=== PATIENT | male | born 1965 | race Caucasian/White ===

== ENCOUNTER 2018-07-14 09:43 | Outpatient (CLI) | payer MEDICAID, SELFPAY ==
[2018-07-14 10:59] LABS: ALT 23 U/L (12-78); AST 14 U/L (15-37); Albumin 4.1 g/dL (3.4-5.0); Alkaline Phosphatase 98 U/L (46-116); Anion Gap 8.1 mmol/L (3-11); BUN 12 mg/dL (7-18); Bilirubin, Total 0.4 mg/dL (0.2-1.0); CO2 29.9 mmol/L (21.0-32.0); CREATININE 0.97 mg/dL (0.70-1.30); Calcium 10.2 mg/dL (8.5-10.1); Chloride 102 mmol/L (98-107); Cholesterol 198 mg/dL (50-200); Glucose 88 mg/dL (70-100); HDL Cholesterol 54 mg/dL (40-60); LDL CHOLESTEROL 119 mg/dL (<100); Potassium 4.2 mmol/L (3.5-5.1); Sodium 140 mmol/L (136-145); TSH 2.05 uIU/mL (0.358-3.74); Total Protein 7.7 g/dL (6.4-8.2); Triglyceride 148 mg/dL (30-150)
[2018-07-14 11:13] LABS: Lithium 1.07 mmol/L (0.60-1.20)
== END 2018-07-14 10:03 ==
PROVIDERS: PCP Nurse Practitioner Family; Visit Provider Psychiatry & Neurology Child & Adolescent Psychiatry
DX: F20.9 Schizophrenia, unspecified (principal); Z51.81 Encounter for therapeutic drug level monitoring; Z79.899 Other long term (current) drug therapy
CPT/HCPCS: 36415; 80053; 80061; 83721; 80178; 84443

== ENCOUNTER 2018-07-23 14:34 | Outpatient (CLI) | payer MEDICAID, SELFPAY ==
[2018-07-23 15:42] LABS: Calcium 9.9 mg/dL (8.5-10.1)
[2018-07-23 15:43] LABS: Albumin 4.1 g/dL (3.4-5.0)
== END 2018-07-23 14:54 ==
PROVIDERS: PCP Nurse Practitioner Family; Visit Provider Nurse Practitioner Family
DX: E78.5 Hyperlipidemia, unspecified (principal); E83.52 Hypercalcemia
CPT/HCPCS: 36415; 82040; 82310

== ENCOUNTER 2019-02-11 02:14 | Outpatient (CLI) | payer MEDICAID, SELFPAY ==
[2019-02-11 11:36] LABS: Vitamin B12 408 pg/mL (193-986)
[2019-02-12 06:55] LABS: Vitamin D 25 Total 27.3 ng/ml (30-100)
== END 2019-02-11 02:34 ==
PROVIDERS: PCP Nurse Practitioner Family; Visit Provider Internal Medicine Sleep Medicine
DX: E55.9 Vitamin D deficiency, unspecified (principal); R53.83 Other fatigue
CPT/HCPCS: 36415; 82306; 82607

== ENCOUNTER 2020-01-05 03:47 | Outpatient (CLI) | payer MEDICAID, SELFPAY ==
--- NOTE | 2020-01-05 10:45 | RT.EKG_ITS ---
APPROVED REPORT Exam: Resting ECG Patient Location: O HR:69 bpm ECG Measurements Heart Rate 69 AXIS ME 172 P 56 QRSd 90 QRS 79 QT 378 T 73 QTc 404 Conclusion Sinus rhythm...normal P axis, V-rate 60- 99 ST elev, probable normal early repol pattern...ST elevation, age<55
== END 2020-01-05 04:07 ==
PROVIDERS: PCP Nurse Practitioner Family; Visit Provider Family Medicine
DX: F20.9 Schizophrenia, unspecified (principal); Z79.899 Other long term (current) drug therapy; R94.31 Abnormal electrocardiogram [ECG] [EKG]
CPT/HCPCS: 93005; 93010

== ENCOUNTER 2020-01-27 03:59 | Outpatient (CLI) | payer MEDICAID, SELFPAY ==
[2020-01-27 08:23] LABS: Abs Immature Grans 0.02 10^3/uL (0.0-0.06); Absolute Basophil Count 0.04 10^3/uL (0.0-0.2); Absolute Eosinophil Count 0.09 10^3/uL (0.0-0.7); Absolute Lymphocyte Count 1.83 10^3/uL (1.2-3.4); Absolute Monocyte Count 0.45 10^3/uL (0.1-0.8); Absolute Neutrophil Count 3.35 10^3/uL (1.2-6.7); Basophils % 0.7; Eosinophils % 1.6; HCT 40.5 % (40.0-50.0); HGB 13.3 g/dL (13.5-17.5); Immature Grans % 0.3; Lymphocytes % 31.7; MCH 29.9 pg (27.0-33.0); MCHC 32.8 % (32.0-36.0); MPV 9.1 fL (8.0-11.0); Monocytes % 7.8; Neutrophils % 57.9; Nucleated RBC 0 %; Platelet Count 310 10^3/uL (130-400); RBC 4.45 10^6/uL (4.36-5.78); RDW 12.7 % (11.8-14.1); WBC 5.78 10^3/uL (4.4-10.8)
[2020-01-27 08:39] LABS: Hemoglobin A1C 5.7 % (<5.7)
[2020-01-27 09:14] LABS: Lithium 0.71 mmol/L (0.60-1.20)
[2020-01-27 09:28] LABS: ALT 23 U/L (16-63); AST 13 U/L (15-37); Albumin 4.2 g/dL (3.4-5.0); Alkaline Phosphatase 98 U/L (46-116); Anion Gap 5.2 mmol/L (3-11); BUN 18 mg/dL (7-18); CO2 29.8 mmol/L (21.0-32.0); CREATININE 0.84 mg/dL (0.70-1.30); Calcium 9.9 mg/dL (8.5-10.1); Calculated LDL 114 mg/dL (<100); Chloride 105 mmol/L (98-107); Cholesterol 191 mg/dL (<200); Glucose 100 mg/dL (74-106); HDL Cholesterol 58 mg/dL (40-60); Potassium 4.4 mmol/L (3.5-5.1); Sodium 140 mmol/L (136-145); TSH (W/Ref FT4) 0.77 uIU/mL (0.36-3.74); Total Protein 7.3 g/dL (6.4-8.2); Triglyceride 95 mg/dL (<150)
[2020-01-27 09:43] LABS: Bilirubin, Total 0.3 mg/dL (0.2-1.0)
[2020-01-28 09:52] LABS: Hepatitis C Ab w Rflx HCV PCR Negative (Negative)
== END 2020-01-27 04:19 ==
PROVIDERS: PCP Nurse Practitioner Family; Visit Provider Nurse Practitioner Family
DX: E03.9 Hypothyroidism, unspecified (principal); R73.01 Impaired fasting glucose; E78.5 Hyperlipidemia, unspecified; Z11.59 Encounter for screening for other viral diseases; Z51.81 Encounter for therapeutic drug level monitoring
CPT/HCPCS: 36415; 80053; 80061; 86803; 80178; 83036; 84443; 85025

== ENCOUNTER 2020-03-18 06:10 | Day surgery (SDC) | payer MEDICAID, SELFPAY ==
[2020-03-18 06:34] VITALS: BP 131/86; PULSE 77; RESP 16; TEMP 36.6; O2SAT 98
[2020-03-18] MEDS: Lactated Ringers 1,000 ML 80 ML IV (06:53)
--- NOTE | 2020-03-18 08:11 | W.PM.DSUDISC ---
Discharge Plan Disposition Patient Disposition: HOME Condition: Stable Discharge Details Reason For Visit: colon scope Attending Provider: Minerva Nichole Primary Care Provider: Sue Fischer Home Meds and New Rx's Prescriptions: No Action omega 6-pkq-rtv-fish oil [Fish Oil] 1,000 mg (120 mg-180 mg) capsule PO TID RF: 0 magnesium oxide 500 mg capsule 500 mg PO DAILY RF: 0 zinc 15 mg tablet 15 mg PO DAILY RF: 0 ammonium lactate [AmLactin] 3 GM lotion 3 gm Topical BID RF: 0 ibuprofen 200 MG capsule 200 mg PO Q6H PRN RF: 0 tiagabine [Gabitril] 4 MG tablet 1 tab PO BID RF: 0 multivitamin with minerals [Multiple Vitamin-Minerals] 1 EACH tablet 1 ea PO DAILY Qty: 90 RF: 3 (DME) Space Chamber Plus 1 EACH spacer 1 ea Miscellaneous PRN Qty: 1 RF: 0 lorazepam 1 MG tablet 1 mg PO HS RF: 0 melatonin 5 mg tablet 15 mg PO HS PRNRF: 0 levothyroxine 75 mcg tablet 75 mcg PO QAM Qty: 90 RF: 3 magnesium gluconate 27 mg magnesium (500 mg) tablet 27 mg PO HS RF: 0 cholecalciferol (vitamin D3) 2,000 unit capsule 2,000 unit PO DAILY RF: 0 vitamin B complex Capsule 1 cap PO DAILY RF: 0 omeprazole 20 mg capsule,delayed release(DR/EC) 20 mg PO QAM Qty: 90 RF: 3 psyllium husk [Metamucil] 0.52 gram capsule 0.52 gm PO BID Qty: 180 RF: 3 magnesium 250 mg tablet 250 mg PO TID PRNRF: 0 albuterol sulfate [ProAir HFA] 90 mcg/actuation HFA aerosol inhaler 1 - 2 puff Inhalation Q4-6H PRN Qty: 1 RF: 3 Advair HFA 115-21 mcg/actuation HFA aerosol inhaler 2 puff Inhalation BID Qty: 3 RF: 3 5-HTP 100 mg capsule 100 mg PO QAM RF: 0 quetiapine [Seroquel] 400 mg tablet See Rx Instructions PO DAILY RF: 0 lithium carbonate 300 mg tablet See Rx Instructions PO TID RF: 0 loxapine succinate 50 mg capsule 50 mg PO as directed RF: 0 sodium fluoride-pot nitrate [Prevident 5000 Enamel Protect] 1.1-5 % paste See Rx Instructions Dental BID RF: 0 ketoconazole 2 % shampoo 1 applic Topical .1-2 times weekly Qty: 360 RF: 3 docusate sodium [Colace] 100 mg capsule 300 mg PO DAILY Qty: 270 RF: 3 tiagabine 4 MG tablet 2 tab PO HS RF: 0 Discharge Instructions Additional Instructions: Findings:incomplete/ poor prep Follow up:pt does not require further screenings Please call if you develop: fevers >101.5 Nausea or Vomiting Abdominal pain that is not transient DAY SURGERY UNIT POST COLONOSCOPY INSTRUCTIONS 1. Because there will be medication in your system for the next 24 hours, you may feel a little sleepy. Your coordination will be affected. Therefore: a. Do not drive or operate dangerous equipment for 24 hours. b. Do not drink alcohol beverages for 24 hours (not even beer). c. Plan to go home and rest for the day. 2. Generally there are no restrictions on your activity after a day or so has gone by, but you may feel a bit fatigued for a few days. 3 After you arrive home you may have a light meal and return to a normal diet as you can tolerate it without feeling sick to your stomach. 4. After surgery, you may feel pain or discomfort. This should be only transient, but if it persists please contact your doctor. 5. If there are any questions regarding the findings of your procedure, please feel free to contact your doctor. 6. If you are unable to contact your doctor with a problem, contact the hospital at [phone]. 7. Continue all your regular medications unless directed otherwise. I understand the above instructions and have no questions. Signature of Patient or Responsible Adult Escort Date/Time Name of Responsible Adult Escort Signature of Nurse Date/Time Activity:: No lifting over 20 pounds or strenuous activity x24 hours Diet:: Small light meals x20 this is Discharge Orders Discharge Orders: Discharge Order (Routine); Ordered 03/18/20 Ordered By: Minerva Nichole
--- NOTE | 2020-03-18 08:12 | W.COLOREPORT ---
Date of service: 03/18/20 Time of Service: 08:12 Colonoscopy Report Date of procedure: 03/18/20 Pre-op diagnosis general: screening Post-op diagnosis procedure note: same Surgeon: Minerva Nichole Anesthesia proc note operative: GETA Estimated blood loss (mL): 0 Pathology: none sent Complications: None Disposition: same day Prep: Miralax Retraction Time: N/A Procedure Description: After informed consent was obtained the patient was taken to the procedure room and placed in a left decubitous position. Monitors were applied and a time out was done. The patients name, date of , procedure, allergies to medications and metal in their body was reviewed. The patient was then sedated. Once sedated and comfortable a rectal exam was done. External exam was normal. Internal exam revealed a normal sphincter tone and no palpable masses. Pt colon was full of formed and liquid stool; the scope kept clogging. I was able to work up to the hepatic flexure. The mucosa I was able to visualize was normal. However, b/c of the incomplete prep- a small mass wound not have been seen. The scope was removed and the patient was woken up and taken back to Same day surgery in stable condition. The patient tolerated the procedure well and there were no immediate complications. Follow up: The patient cannot complete/ follow a prep. He is not a candidate for a colonoscopy.
[2020-03-18 08:54] VITALS: BP 146/92; PULSE 67; RESP 16; TEMP 36.5; O2SAT 100
[2020-03-18] MEDS: Metoclopramide 10 MG/2 ML VIAL 5 MG IVP (09:12)
== END 2020-03-18 09:58 | disposition home or self-care (01) ==
PROVIDERS: PCP Nurse Practitioner Family; Visit Provider Surgery
PROC: 0DJD8ZZ Inspection of Lower Intestinal Tract, Via Natural or Artificial Opening Endoscopic (ICD-10-PCS; CPT 45378; principal; 2020-03-18 07:30)
DX: Z12.11 Encounter for screening for malignant neoplasm of colon (principal); Z53.09 Procedure and treatment not carried out because of other contraindication
CPT/HCPCS: 45378; J2001; J2765

== ENCOUNTER 2020-09-22 01:20 | Outpatient (CLI) | payer MEDICAID, SELFPAY ==
--- NOTE | 2020-09-22 07:42 | DI.RAD_ITS ---
Exam(s) XR CHEST 2V PA LATERAL EXAM: XR CHEST 2V PA LATERAL CLINICAL HISTORY: unintentional wt loss ?mass,R63.4. TECHNIQUE: 2D digital imaging was performed. COMPARISON: Prior chest x-ray April 2015 FINDINGS: Heart size is normal. The mediastinum is not widened. Right lung is clear. Mild increased markings in the left lung base noted on the frontal view. This was an area of larger infiltrate in the left lung base in 2015 which is no longer present. There are no pleural effusions. No pneumothorax. IMPRESSION: Small 7 millimeter density seen in the left lung base either left lower lobe or lingular segment of t he left lung. This is only seen on the frontal view. Possibly scarring related to prior larger infi ltrate in this region which was present in 2015.Nevertheless, this requires follow-up to ensure stabi lity. DATA REPOSITORY: RADIATION DOSE DELIVERED:
[2020-09-22] MEDS: Omnipaque 350 MG/ML 50 ML BTL IJ (08:11)
[2020-09-22] MEDS: Breeza Beverage 473 ML BTL PO ×2 (08:12→08:13)
[2020-09-22 08:16] LABS: Abs Immature Grans 0.02 10^3/uL (0.0-0.06); Absolute Basophil Count 0.02 10^3/uL (0.0-0.2); Absolute Eosinophil Count 0.06 10^3/uL (0.0-0.7); Absolute Lymphocyte Count 1.42 10^3/uL (1.2-3.4); Absolute Monocyte Count 0.64 10^3/uL (0.1-0.8); Absolute Neutrophil Count 4.99 10^3/uL (1.2-6.7); Basophils % 0.3; ESR 20 mm//hr (0-20); Eosinophils % 0.8; HCT 38.3 % (40.0-50.0); HGB 12.6 g/dL (13.5-17.5); Immature Grans % 0.3; Lymphocytes % 19.9; MCH 29.9 pg (27.0-33.0); MCHC 32.9 % (32.0-36.0); MPV 8.9 fL (8.0-11.0); Neutrophils % 69.7; Nucleated RBC 0 %; Platelet Count 336 10^3/uL (130-400); RBC 4.21 10^6/uL (4.36-5.78); RDW 12.8 % (11.8-14.1); RDW-SD 42.2 fL; WBC 7.15 10^3/uL (4.4-10.8)
[2020-09-22 08:38] LABS: ALT 29 U/L (16-63); AST 17 U/L (15-37); Albumin 3.6 g/dL (3.4-5.0); Alkaline Phosphatase 90 U/L (46-116); Anion Gap 6.1 mmol/L (3-11); BUN 19 mg/dL (7-18); Bilirubin, Total 0.2 mg/dL (0.2-1.0); C-Reactive Protein 0.11 mg/dL (0.0-0.3); CO2 27.9 mmol/L (21.0-32.0); CREATININE 0.9 mg/dL (0.70-1.30); Calcium 9.7 mg/dL (8.5-10.1); Chloride 105 mmol/L (98-107); Glucose 91 mg/dL (74-106); Potassium 4.3 mmol/L (3.5-5.1); Sodium 139 mmol/L (136-145); TSH (W/Ref FT4) 1.68 uIU/mL (0.36-3.74); Total Protein 7.4 g/dL (6.4-8.2)
[2020-09-22] MEDS: Normal Saline - Diluent 50 ML VIAL IV (09:17)
[2020-09-22] MEDS: Omnipaque 350 MG/ML 100 ML BTL IJ (09:18)
--- NOTE | 2020-09-22 09:21 | DI.CT_ITS ---
Exam(s) CT ABDOMEN PELVIS W EXAM: CT ABDOMEN PELVIS W CLINICAL HISTORY: UNINTENTIONAL WT LOSS, ABD MASS,R63.4,R19.00. TECHNIQUE: Imaging Protocol: Axial computed tomography images with coronal and sagittal reformatted images were created and reviewed CONTRAST MATERIAL: Intravenous: Omnipaque 100cc Oral: Yes. COMPARISON: Chest x-ray earlier today was reviewed. Also chest x-ray April 2015 FINDINGS: VISUALIZED LUNG BASES: No nodules nor pleural effusions evident. ABDOMEN: There is no ascites. LIVER: There are no focal hepatic lesions evident . GALLBLADDER/BILIARY: No obvious gallbladder pathology. CBD is not dilated. PANCREAS: No evidence of pancreatic mass nor dilatation of the pancreatic duct. SPLEEN: Spleen is not enlarged. No obvious intrasplenic lesions. Splenic and portal veins are paten t. ADRENALS: There are no significant adrenal masses. KIDNEYS:Small 1 cm cyst in the left kidney noted. No solid renal masses. No calculi nor hydronephro sis.. ABDOMINAL AORTA: Abdominal aorta is not enlarged. LYMPH NODES:There is no retroperitineal nor paraaortic adenopathy. ABDOMINAL WALL: No evidence of significant anterior abdominal wall hernia. GI: There is no evidence of bowel obstruction, free air, nor abscess. PELVIS: GI: No evidence of appendicitis.No evidence of sigmoid diverticulitis. LYMPH NODES: There is no intrapelvic nor inguinal adenopathy. REPRODUCTIVE: Prostate gland is not enlarged. URINARY BLADDER: The urinary bladder is grossly distended and extends out of the pelvis into the mid- upper abdomen. Exhibits a cephalocaudal measurement of 18 cm. AP measurement 5 cm. Distended bladd er with is 16 cm. There is no obvious mass in the urinary bladder. No intraluminal calculi evident. OSSEOUS: Benign-appearing subarticular cysts are noted in the anterior aspect of the right femoral he ad-right hip. No other significant focal osseous lesions. Degenerative disc disease in lower lumbar spine and degenerative facet arthropathy. IMPRESSION: 1. Main finding here is a gross distention of the urinary bladder with measurements as above. The la rgely distended urinary bladder extends upwards into the mid upper abdomen from the pelvis. Prostate gland does not appear grossly enlarged. There are no calculi nor obvious masses in the urinary blad lj. No perivesicular extravasation seen. 2. There is no hydronephrosis nor hydroureter. RADIATION DOSE DELIVERED: 912.34mGy.cm Total DLP DATA REPOSITORY: All CT scans at this facility are submitted to the National Radiology Data Registry (NRDR) Dose Index Registry (DIR) with the [employer] (ACR). RADIATION OPTIMIZATION: All CT scans at this facility use at least one of these dose optimization te chniques: automated exposure control; mA and/or kV adjustment per patient size (includes targeted exa ms where dose is matched to clinical indication); or iterative reconstruction.
[2020-09-22 16:54] LABS: PSA, Screening 1.6 ng/mL (0.0-3.5)
[2020-09-23 10:10] LABS: Hepatitis C Ab w Rflx HCV PCR Negative (Negative)
[2020-09-23 11:30] LABS: HIV-1/2 Ag & Ab Screen Negative (Negative)
== END 2020-09-22 01:40 ==
PROVIDERS: PCP Nurse Practitioner Family; Visit Provider Nurse Practitioner Family
DX: R63.4 Abnormal weight loss (principal); R19.09 Other intra-abdominal and pelvic swelling, mass and lump; N32.89 Other specified disorders of bladder; N28.1 Cyst of kidney, acquired; J98.4 Other disorders of lung; E03.9 Hypothyroidism, unspecified; Z11.59 Encounter for screening for other viral diseases; Z11.4 Encounter for screening for human immunodeficiency virus [HIV]; Z12.5 Encounter for screening for malignant neoplasm of prostate
CPT/HCPCS: 80053; 84153; 85652; 86803; 87389; 71046; 74177; 84443; 85025; 86140; J3490; Q9967

== ENCOUNTER 2020-11-02 06:59 | Day surgery (SDC) | payer MEDICAID, SELFPAY ==
--- NOTE | 2020-11-02 06:26 | W.PREOPHP ---
Date of service: 11/02/20 Time of Service: 08:26 Assessment and Plan Assessment and plan (1) Weight loss, unintentional: Status: Acute Assessment and plan: Mr. Valencia is a 55-year-old gentleman with a past medical history significant for intellectual disability, bipolar disc disorder, schizophrenia and obstructive sleep apnea who has been losing weight over the last 6 months. It does look like his weight has stabilized over the last month or so. He is here with his caregiver. He does not complain of any abdominal pain. The patient tells me that he goes to the bathroom every day, but his caregiver is not sure that is really true. Due to his antipsychotic medications he does have quite a bit of constipation which is most likely due to decreased motility. He does take MiraLAX and Colace on a daily basis. He did have a colonoscopy in March of last year but unfortunately his prep was not adequate. There were no big masses or obstructions noted at that time. Due to his continued weight loss his primary care physician wanted him to have another try at a colonoscopy. I discussed with his caregiver doing a 2-day prep. We will have him on clear liquids for 2 days. We will give him a bottle of mag citrate 2 days prior to the procedure and then try GoLYTELY the day before the procedure. She will also make sure that he is on a soft diet 4 days prior to the procedure to try to get him cleaned out. Because he will be on clear liquids for 2 days in a row I will asked that he be the first case of the day. Mr. Valencia is vaccinated. We do not have the his card but his caregiver will fax that to us today. As he is vaccinated he does not need to have the Covid test. Risks, benefits and complications have been reviewed. Complications include but are not limited to bleeding, pain, perforation, missed small lesion/polyp, sore throat, aspiration and adverse reaction to the medications. Questions were entertained and answered to their satisfaction and they wished to proceed. No guarantees were given or implied. Proceed with colonoscopy under sedation. History of Present Illness Narrative: Mr. Valencia is here today with his caregiver to discuss a repeat Colonoscopy. A colonoscopy was attempted last year in March by Dr. Nichole but he still had a lot of formed and liquid stool throughout. No large masses were noted at that time. Wayne has been loosing weight as well. It does seem like over the last few weeks his weight has stabilized and gone up slightly. Wayne tells me that he is having large BM's every day but his Caregiver is not too sure that that is true. Unfortunately due to his Psychiatric diagnoses he is on a lot of antipsycotics whcih due cause constipation by afecting motility. He is not at this time taking any laxatives just stools softeners which is great. I discussed the prep with his Caregiver. He did Miralax last time and was on Clear liquids for 2 days. We will try Clear liquids for 2 days. Mag Citrate 2 days before the procedure and then Golytly. there have been no changes in his health since he was last seen Per caregiver the prep seemed to go well. Review of Systems Cardiovascular Cardiovascular: Denies chest pain, Denies chest pain at rest, Denies irregular heart rhythm, Denies dyspnea and Denies dyspnea on exertion Respiratory Respiratory: Denies cough, Denies dyspnea and Denies dyspnea on exertion Gastrointestinal Gastrointestinal: Reports as per [facility] Genitourinary Genitourinary: Denies dysuria, Denies urinary incontinence and Denies urinary urgency Endocrine Endocrine: Reports system reviewed and no additional complaints, except as documented Hematologic/Lymphatic Hematologic/Lymphatic: Denies easy bruising and Denies lymphadenopathy [facility] Medical History Anemia Bipolar disorder [facility] Psychiatry Bronchospasm (12/29/15) Pt unable to complete PFTs due to mental status, unclear ?asthma vs. COPD? Constipation Disorder of bursae and tendons in shoulder region Hyperlipidemia (06/20/15) 01/2020 labs: 10-year ASCVD risk = 3.6% --> no statin indicated at this time Hypothyroidism Intellectual disability Also has legal guardian (see Guardianship on Problem List) Schizophrenia [facility] Psychiatry Seborrheic dermatitis of scalp (10/17/17) Severe obstructive sleep apnea (05/29/17) sleep study Dr. Kelley, Mask, Bipap 08/2020 Sleep-Rocky Kelley MD Surgical History Colonoscopy - IV Sedation (03/13/10) Family History Mother No problems noted. Father Alcohol abuse Arthritis Other Cancer of lung Social History Smoking/Tobacco Use Status: Former Tobacco Use Quit Date: 05/13/94 Smoking risk assessment performed?: Yes Alcohol Intake: never Drug use: Never Substance use type: does not use Adopted: No Caregiver/Support person: Yes (Human Services) Foster care: No Household members: other Details: Lives in [facility] long term Housing: assisted living facility Communication Needs: None Education Level: high school Do you need help understanding health information?: Rarely current occupation: Disabled Pets and animals: No Sexually active: No Current gender identity: male What is your relationship status?: never How often do you talk on the phone with friends or family?: never How often do you get together with friends or relatives?: decline to answer How often do you attend methodist or sikh services?: decline to answer Do you belong to any clubs or organized social groups?: no Panel score (0-1 are the most socially isolated patients): 0 What type of physical activity do you participate in: none Duration: < 15 minutes/day Frequency: 1-2 times per week Special hilda needs: No Seatbelt use: always Helmet use: Yes Drive intox or ride w/intox commercial driver's license driver: No Additional Social history: Unable to [facility] Med[facility] Allergies and Home Medications Allergies Allergy/AdvReac Type Severity Reaction Status Date / Time acetaminophen [From Tylenol] Allergy Unknown unknown Verified 11/02/20 07:30 chlorpromazine HCl Allergy Unknown unknown Verified 11/02/20 07:30 [From Thorazine] clozapine [From Clozaril] Allergy Unknown unknown Verified 11/02/20 07:30 haloperidol [From Haldol] Allergy Unknown unknown Verified 11/02/20 07:30 haloperidol lactate Allergy Unknown unknown Verified 11/02/20 07:30 [From Haldol] risperidone [From Risperdal] Allergy Unknown unknown Verified 11/02/20 07:30 Home Medications Medication Instructions Recorded Confirmed Type ammonium lactate [Amlactin] 3 gm TOPICAL BID script 06/06/15 11/02/20 History ibuprofen 200 mg PO Q6H PRN tab-cap 06/06/15 11/02/20 History multivitamin with minerals 1 ea PO DAILY #90 06/06/15 11/02/20 History [Multiple Vitamin] tiagabine [Gabitril] 1 tab PO BID 06/06/15 11/02/20 History inhalational spacing device [Space #1 12/14/15 10/31/20 History Chamber Plus] tiagabine 2 tab PO HS 01/31/16 11/02/20 History lorazepam 1 mg PO HS tab 04/24/16 11/02/20 History magnesium oxide 500 mg capsule 500 mg PO DAILY cap 05/02/18 11/02/20 History omega 3-xng-bfr-fish oil 1,000 mg 1 cap PO TID cap 05/02/18 11/02/20 History (120 mg-180 mg) capsule zinc 15 mg tablet 15 mg PO DAILY 05/02/18 11/02/20 History melatonin 5 mg tablet 15 mg PO HS PRN tab 05/19/18 11/02/20 History cholecalciferol (vitamin D3) 50 2,000 unit PO DAILY 03/09/19 11/02/20 History mcg (2,000 unit) capsule magnesium gluconate 27 mg 27 mg PO HS tab 03/09/19 10/31/20 History magnesium (500 mg) tablet vitamin B complex 1 cap PO DAILY 03/09/19 11/02/20 History magnesium 250 mg tablet 250 mg PO TID PRN tab 11/03/19 11/02/20 History albuterol sulfate 90 mcg/actuation 1 - 2 puff INHALATION Q4-6H PRN #1 11/25/19 10/31/20 Rx aerosol inhaler inhaler fluticasone propionate 115 2 puff INHALATION BID #3 inhaler 12/24/19 11/02/20 Rx mcg-salmeterol 21 mcg/actuation HFA inhaler 5-hydroxytryptophan (5-HTP) 100 mg 100 mg PO QAM cap 01/01/20 11/02/20 History capsule lithium carbonate 300 mg tablet See Rx Instructions PO TID tab-cap 01/01/20 11/02/20 History loxapine succinate 50 mg capsule 50 mg PO as directed cap 01/01/20 11/02/20 History quetiapine 400 mg tablet See Rx Instructions PO DAILY 01/01/20 11/02/20 History tab-cap sodium fluoride 1.1 %-potassium See Rx Instructions DENTAL BID ml 01/01/20 11/02/20 History nitrate 5 % dental paste ketoconazole 2 % shampoo 1 applic TOPICAL .1-2 times weekly 01/22/20 11/02/20 Rx #360 ml docusate sodium 100 mg capsule 300 mg PO DAILY #270 tab-cap 03/02/20 11/02/20 Rx levothyroxine 75 mcg tablet 75 mcg PO QAM #90 tab-cap 04/04/20 11/02/20 Rx omeprazole 20 mg capsule,delayed 20 mg PO QAM #90 tab-cap 04/20/20 11/02/20 Rx release polyethylene glycol 3350 17 17 g PO DAILY PRN #850 g 07/04/20 11/02/20 Rx gram/dose oral powder psyllium husk 0.52 gram capsule 0.52 g PO BID #180 tab-cap 09/12/20 11/02/20 Rx bisacodyl 5 mg tablet,delayed 5 mg PO ONCE #4 tab 09/30/20 11/02/20 Rx release magnesium citrate 300 ml PO ONCE #296 ml 09/30/20 10/31/20 Rx peg 3350-electrolytes 227.1 240 ml PO Q10M #1 ea 09/30/20 11/02/20 Rx gram-21.5 gram-6.36gram oral powder packet Exam Const General: healthy appearing and comfortable Resp Effort & Inspection: normal respiratory effort Auscultation: clear to auscultation bilaterally Cardio Rate: regular rate Rhythm: regular rhythm Heart Sounds: no click, no gallops and no murmurs
--- NOTE | 2020-11-02 06:27 | W.COLOREPORT ---
Date of service: 11/02/20 Time of Service: 08:52 Colonoscopy Report Date of procedure: 11/02/20 Pre-op diagnosis general: Unintentional weight loss Post-op diagnosis procedure note: same Procedure: Incomplete Colonoscopy Surgeon: Natalia Rodriguez Anesthesia Type: General:No Airway (ASA 2/Katheryn Plummer, ISMA) Estimated blood loss (mL): 0 Pathology: none sent Complications: None Disposition: same day Indications: Mr. Valencia is a 55-year-old gentleman with a past medical history significant for intellectual disability, bipolar disc disorder, schizophrenia and obstructive sleep apnea who has been losing weight over the last 6 months. It does look like his weight has stabilized over the last month or so. He is here with his caregiver. He does not complain of any abdominal pain. The patient tells me that he goes to the bathroom every day, but his caregiver is not sure that is really true. Due to his antipsychotic medications he does have quite a bit of constipation which is most likely due to decreased motility. He does take MiraLAX and Colace on a daily basis. He did have a colonoscopy in March of last year but unfortunately his prep was not adequate. There were no big masses or obstructions noted at that time. Due to his continued weight loss his primary care physician wanted him to have another try at a colonoscopy. I discussed with his caregiver doing a 2-day prep. We will have him on clear liquids for 2 days. We will give him a bottle of mag citrate 2 days prior to the procedure and then try GoLYTELY the day before the procedure. She will also make sure that he is on a soft diet 4 days prior to the procedure to try to get him cleaned out. Because he will be on clear liquids for 2 days in a row I will asked that he be the first case of the day. Mr. Valencia is vaccinated. We do not have the his card but his caregiver will fax that to us today. As he is vaccinated he does not need to have the Covid test. Risks, benefits and complications have been reviewed. Complications include but are not limited to bleeding, pain, perforation, missed small lesion/polyp, sore throat, aspiration and adverse reaction to the medications. Questions were entertained and answered to their satisfaction and they wished to proceed. No guarantees were given or implied. Proceed with colonoscopy under sedation. Prep: Miralax/Dulcolax Findings: Liquid stool throughout the colon. No large masses noted up to the Hepatic flexure Procedure Description: After informed consent was obtained the patient was taken to the procedure room and placed in a left decubitous position. Monitors were applied and a time out was done. The patients name, date of , procedure, allergies to medications and metal in their body was reviewed. The patient was then sedated. Once sedated and comfortable a rectal exam was done. External exam was normal. Internal exam revealed a normal sphincter tone and no palpable masses. The prostate felt smooth. The scope was then introduced and retro-flexed. No internal hemorrhoids, polyps or masses were identified on retro-flexion. The scope was then advanced to the hepatic flexure with difficulty due to a dilated and tortuous colon. The prep was inadequate. There was a large amount of liquid stool and debris throughout the colon. No large masses were noted up to the Hepatic flexure. There was no obstruction or stricture. The scope was removed and the patient was woken up and taken back to Same day surgery in stable condition. The patient tolerated the procedure well and there were no immediate complications. Follow up: None
--- NOTE | 2020-11-02 06:28 | PDOC.DSDIS_ITS ---
Discharge Plan Disposition Patient Disposition: HOME Condition: Good Discharge Details Reason For Visit: UNINTENTIONAL WT LOSS Attending Provider: Natalia Rodriguez Primary Care Provider: Sue Fischer Home Meds and New Rx's Prescriptions: Continued omega 3-dvq-bft-fish oil [Fish Oil] 1,000 mg (120 mg-180 mg) capsule 1 cap PO TID RF: 0 magnesium oxide 500 mg capsule 500 mg PO DAILY RF: 0 zinc 15 mg tablet 15 mg PO DAILY RF: 0 magnesium citrate Solution 300 ml PO ONCE Qty: 296 RF: 0 ammonium lactate [AmLactin] 3 GM lotion 3 gm Topical BID RF: 0 ibuprofen 200 MG capsule 200 mg PO Q6H PRN RF: 0 tiagabine [Gabitril] 4 MG tablet 1 tab PO BID RF: 0 multivitamin with minerals [Multiple Vitamin-Minerals] 1 EACH tablet 1 ea PO DAILY Qty: 90 RF: 3 (DME) Space Chamber Plus 1 EACH spacer 1 ea Miscellaneous PRN Qty: 1 RF: 0 lorazepam 1 MG tablet 1 mg PO HS RF: 0 melatonin 5 mg tablet 15 mg PO HS PRNRF: 0 magnesium gluconate 27 mg magnesium (500 mg) tablet 27 mg PO HS RF: 0 cholecalciferol (vitamin D3) 2,000 unit capsule 2,000 unit PO DAILY RF: 0 vitamin B complex Capsule 1 cap PO DAILY RF: 0 magnesium 250 mg tablet 250 mg PO TID PRNRF: 0 albuterol sulfate [ProAir HFA] 90 mcg/actuation HFA aerosol inhaler 1 - 2 puff Inhalation Q4-6H PRN Qty: 1 RF: 3 Advair HFA 115-21 mcg/actuation HFA aerosol inhaler 2 puff Inhalation BID Qty: 3 RF: 3 5-hydroxytryptophan (5-HTP) [5-HTP] 100 mg capsule 100 mg PO QAM RF: 0 quetiapine [Seroquel] 400 mg tablet See Rx Instructions PO DAILY RF: 0 lithium carbonate 300 mg tablet See Rx Instructions PO TID RF: 0 loxapine succinate 50 mg capsule 50 mg PO as directed RF: 0 sodium fluoride-pot nitrate [Prevident 5000 Enamel Protect] 1.1-5 % paste See Rx Instructions Dental BID RF: 0 ketoconazole 2 % shampoo 1 applic Topical .1-2 times weekly Qty: 360 RF: 3 docusate sodium [Colace] 100 mg capsule 300 mg PO DAILY Qty: 270 RF: 3 levothyroxine 75 mcg tablet 75 mcg PO QAM Qty: 90 RF: 3 omeprazole 20 mg capsule,delayed release(DR/EC) 20 mg PO QAM Qty: 90 RF: 3 polyethylene glycol 3350 [Miralax] 17 gram/dose powder 17 g PO DAILY PRN (Reason: constipation) Qty: 850 RF: 3 psyllium husk [Metamucil] 0.52 gram capsule 0.52 g PO BID Qty: 180 RF: 3 tiagabine 4 MG tablet 2 tab PO HS RF: 0 Discontinued bisacodyl [Dulcolax (bisacodyl)] 5 mg tablet,delayed release (DR/EC) 5 mg PO ONCE Qty: 4 RF: 0 Golytely 227.1-21.5-6.36 gram powder in packet 240 ml PO Q10M Qty: 1 RF: 0 Discharge Instructions Additional Instructions: Findings: unable to complete the colonoscopy due to large amount of stool t hroughout Please call if you develop: fevers >101.5 Nausea or Vomiting Abdominal pain that is not transient Rectal bleeding that is more then a tbsp A hard abdomen and inability to pass gas DAY SURGERY UNIT POST ENDOSCOPY INSTRUCTIONS Instructions for everyone who is given Anesthesia: For your safety, please do the following for the next 24 Hours: a. Do not drive or operate dangerous equipment b. Do not drink alcohol beverages or use any recreational drugs for the first 24 hours or while taking pain medications. The medications in your body may have a reaction that can be dangerous. c. Do not make any important decisions or sign any important papers 1. Generally there are no restrictions on your activity after a day or so has gone by, but you may feel a bit fatigued for a few days. 2. After you arrive home you may have a light meal and return to a normal diet as you can tolerate it without feeling sick to your stomach. 3. After surgery, you may feel pain or discomfort. This should be only transient, but if it persists please contact your doctor. 4. If there are any questions regarding the findings of your procedure, please feel free to contact your doctor. 6. If you are unable to contact your doctor with a problem, contact the hospital at [phone]. 7. Continue all your regular medications unless directed otherwise. I understand the above instructions and have no questions. Signature of Patient or Responsible Adult Escort Date/Time Name of Responsible Adult Escort Signature of Nurse Date/Time Activity:: Activity as Tolerated Diet:: As Tolerated Discharge Orders Discharge Orders: Discharge Order (Routine); Ordered 11/02/20 Ordered By: Natalia Rodriguez DS: Diagnosis Discharge Diagnosis (1) Weight loss, unintentional: Status: Acute
[2020-11-02 07:15] VITALS: BP 144/93; PULSE 74; RESP 16; TEMP 36.3; O2SAT 96
--- NOTE | 2020-11-02 07:21 | W.ANESPRE ---
General Info Date of Service Date Performed: 11/02/20 Height: 5 ft 3 in Weight: 68.067 kg Body Mass Index (BMI): 26.6 Surgical Procedure: Operation Date: 11/02/20 08:20 Proposed Procedures Side Surgeon p Colonoscopy Natalia Rodriguez MD Meds Allergies and Home Medications Allergies Allergy/AdvReac Type Severity Reaction Status Date / Time acetaminophen [From Tylenol] Allergy Unknown unknown Verified 11/02/20 07:30 chlorpromazine HCl Allergy Unknown unknown Verified 11/02/20 07:30 [From Thorazine] clozapine [From Clozaril] Allergy Unknown unknown Verified 11/02/20 07:30 haloperidol [From Haldol] Allergy Unknown unknown Verified 11/02/20 07:30 haloperidol lactate Allergy Unknown unknown Verified 11/02/20 07:30 [From Haldol] risperidone [From Risperdal] Allergy Unknown unknown Verified 11/02/20 07:30 Home Medication Medication Instructions Recorded ammonium lactate [Amlactin] 3 gm TOPICAL BID script 06/06/15 ibuprofen 200 mg PO Q6H PRN tab-cap 06/06/15 multivitamin with minerals 1 ea PO DAILY #90 06/06/15 [Multiple Vitamin] tiagabine [Gabitril] 1 tab PO BID 06/06/15 inhalational spacing device [Space #1 12/14/15 Chamber Plus] tiagabine 2 tab PO HS 01/31/16 lorazepam 1 mg PO HS tab 04/24/16 magnesium oxide 500 mg capsule 500 mg PO DAILY cap 05/02/18 omega 8-obq-mfa-fish oil 1,000 mg 1 cap PO TID cap 05/02/18 (120 mg-180 mg) capsule zinc 15 mg tablet 15 mg PO DAILY 05/02/18 melatonin 5 mg tablet 15 mg PO HS PRN tab 05/19/18 cholecalciferol (vitamin D3) 50 2,000 unit PO DAILY 03/09/19 mcg (2,000 unit) capsule magnesium gluconate 27 mg 27 mg PO HS tab 03/09/19 magnesium (500 mg) tablet vitamin B complex 1 cap PO DAILY 03/09/19 magnesium 250 mg tablet 250 mg PO TID PRN tab 11/03/19 albuterol sulfate 90 mcg/actuation 1 - 2 puff INHALATION Q4-6H PRN #1 11/25/19 aerosol inhaler inhaler fluticasone propionate 115 2 puff INHALATION BID #3 inhaler 12/24/19 mcg-salmeterol 21 mcg/actuation HFA inhaler 5-hydroxytryptophan (5-HTP) 100 mg 100 mg PO QAM cap 01/01/20 capsule lithium carbonate 300 mg tablet See Rx Instructions PO TID tab-cap 01/01/20 loxapine succinate 50 mg capsule 50 mg PO as directed cap 01/01/20 quetiapine 400 mg tablet See Rx Instructions PO DAILY 01/01/20 tab-cap sodium fluoride 1.1 %-potassium See Rx Instructions DENTAL BID ml 01/01/20 nitrate 5 % dental paste ketoconazole 2 % shampoo 1 applic TOPICAL .1-2 times weekly 01/22/20 #360 ml docusate sodium 100 mg capsule 300 mg PO DAILY #270 tab-cap 03/02/20 levothyroxine 75 mcg tablet 75 mcg PO QAM #90 tab-cap 04/04/20 omeprazole 20 mg capsule,delayed 20 mg PO QAM #90 tab-cap 04/20/20 release polyethylene glycol 3350 17 17 g PO DAILY PRN #850 g 07/04/20 gram/dose oral powder psyllium husk 0.52 gram capsule 0.52 g PO BID #180 tab-cap 09/12/20 bisacodyl 5 mg tablet,delayed 5 mg PO ONCE #4 tab 09/30/20 release magnesium citrate 300 ml PO ONCE #296 ml 09/30/20 peg 3350-electrolytes 227.1 240 ml PO Q10M #1 ea 09/30/20 gram-21.5 gram-6.36gram oral powder packet Current Visit Medications: Current Medications Generic Name Dose Route Start Last Admin Trade Name Freq PRN Reason Stop Dose Admin Hyoscyamine Sulfate 0.125 mg 11/02/20 06:28 Hyoscyamine 0.125 Mg Sl/Oral/Chew SL DIRECTED PRN Ringer's Solution 1,000 mls @ 80 mls/hr 11/02/20 06:00 IV 12/01/20 23:59 INFUSION ALEXIS IV Miscellaneous Supplies 1 each 11/02/20 06:00 Iv Access IV 12/01/20 23:59 DIRECTED ALEXIS Ondansetron HCl 4 mg 11/02/20 06:28 Ondansetron 4 Mg/2 Ml Vial IVP Q4H PRN PRN Nausea / Vomiting Sodium Chloride 0 ml 11/02/20 06:00 Normal Saline Flush 10 Ml Syr IV 12/01/20 23:59 PRN PRN Sodium Chloride 0 ml 11/02/20 06:00 Normal Saline 10 Ml Vial IJ 12/01/20 23:59 DIRECTED PRN Sterile Water 0 ml 11/02/20 06:00 Water,Injection,Sterile 10 Ml Vial IJ 12/01/20 23:59 DIRECTED PRN PFSH Active Problems Active Problems: Problem Status Onset Code Bladder distension N32.89 Lung density on x-ray ~09/22/20 J98.4 Weight loss, unintentional R63.4 Bronchospasm 12/29/15 J98.01 Anemia D64.9 Constipation K59.00 Intellectual disability F79 Bipolar disorder F31.9 Schizophrenia Seborrheic dermatitis of scalp 10/17/17 L21.9 Severe obstructive sleep apnea 05/29/17 G47.33 Guardianship 06/06/15 Scalp cyst 03/28/17 L72.9 IFG (impaired fasting glucose) 03/28/17 R73.01 Hypothyroidism E03.9 Hyperlipidemia 06/20/15 E78.5 Eczema of hand L30.9 Adult BMI > 30 Medical History Medical History Anemia Bipolar disorder [facility] Psychiatry Bronchospasm (12/29/15) Pt unable to complete PFTs due to mental status, unclear ?asthma vs. COPD? Constipation Disorder of bursae and tendons in shoulder region Hyperlipidemia (06/20/15) 01/2020 labs: 10-year ASCVD risk = 3.6% --> no statin indicated at this time Hypothyroidism Intellectual disability Also has legal guardian (see Guardianship on Problem List) Schizophrenia [facility] Psychiatry Seborrheic dermatitis of scalp (10/17/17) Severe obstructive sleep apnea (05/29/17) sleep study Dr. Kelley, Mask, Bipap 08/2020 Sleep-Rocky Kelley MD Surgical History Surgical History Colonoscopy - IV Sedation (03/13/10) Tobacco Smoking/Tobacco Use Status: Former Tobacco Use Passive smoking exposure: No Alcohol Alcohol Intake: never Substance Use Substance use: Never Substance use type: does not use Vital Signs and Lab Results Lab Results Blood Type / Crossmatch: No Data to Display Complete Blood Count: No Data to Display Complete Metabolic Panel: No Data to Display Liver Function Panel: No Data to Display Coagulation Panel: No Data to Display Cardiac Panel: No Data to Display Arterial Blood Gas: No Data to Display Venous Blood Gas: No Data to Display Pancreas Panel: No Data to Display Thyroid Panel: No Data to Display Infectious Disease: No Data to Display Blood Cultures: No Data to Display Toxicology Panel: No Data to Display Anesthesia Assessment and Plan Anesthesia History Personal History: No History of Anesthesia Complications Family History: No Family History of Anesthesia Complications Exercise Tolerance Exercise Tolerance: Metabolic Equivalents<4 Pertinent Negatives Pertinent Negatives: No Symptoms of GERD (Well controlled) Cardiac & Pulmonary Exam Cardiac Exam: Normal S1/S2 Heart Sounds Pulmonary Exam: Clear Bilateral Breath Sounds Airway Exam Known Difficult Airway: No Mallampati Class: 3 Mouth Opening: Normal (> 3cm) Thyromental Distance: Greater than 3 cm Neck Range of Motion: Full ROM Neck Circumference: Normal Teeth Condition: Normal Dentition ASA Classification ASA Score: ASA 2 Emergency Case?: No NPO Status NPO Status: NPO Clears >2 hours, Solids >8 hours Anesthesia Plan Resuscitation Status: Full Code Anesthesia Technique: General Anesthesia Airway Planned: Natural Airway Monitors Used: Standard Monitors
[2020-11-02 07:36] VITALS: BMI 26.6
[2020-11-02] MEDS: Lactated Ringers 1,000 ML 80 ML IV (08:30)
--- NOTE | 2020-11-02 08:42 | W.ANESPRE ---
General Info Date of Service Date Performed: 11/02/20 Height: 5 ft 3 in Weight: 68.067 kg Body Mass Index (BMI): 26.6 Surgical Procedure: Operation Date: 11/02/20 08:20 Proposed Procedures Side Surgeon p Colonoscopy Natalia Rodriguez MD Meds Allergies and Home Medications Allergies Allergy/AdvReac Type Severity Reaction Status Date / Time acetaminophen [From Tylenol] Allergy Unknown unknown Verified 11/02/20 07:30 chlorpromazine HCl Allergy Unknown unknown Verified 11/02/20 07:30 [From Thorazine] clozapine [From Clozaril] Allergy Unknown unknown Verified 11/02/20 07:30 haloperidol [From Haldol] Allergy Unknown unknown Verified 11/02/20 07:30 haloperidol lactate Allergy Unknown unknown Verified 11/02/20 07:30 [From Haldol] risperidone [From Risperdal] Allergy Unknown unknown Verified 11/02/20 07:30 Home Medication Medication Instructions Recorded ammonium lactate [Amlactin] 3 gm TOPICAL BID script 06/06/15 ibuprofen 200 mg PO Q6H PRN tab-cap 06/06/15 multivitamin with minerals 1 ea PO DAILY #90 06/06/15 [Multiple Vitamin] tiagabine [Gabitril] 1 tab PO BID 06/06/15 inhalational spacing device [Space #1 12/14/15 Chamber Plus] tiagabine 2 tab PO HS 01/31/16 lorazepam 1 mg PO HS tab 04/24/16 magnesium oxide 500 mg capsule 500 mg PO DAILY cap 05/02/18 omega 0-adi-esx-fish oil 1,000 mg 1 cap PO TID cap 05/02/18 (120 mg-180 mg) capsule zinc 15 mg tablet 15 mg PO DAILY 05/02/18 melatonin 5 mg tablet 15 mg PO HS PRN tab 05/19/18 cholecalciferol (vitamin D3) 50 2,000 unit PO DAILY 03/09/19 mcg (2,000 unit) capsule magnesium gluconate 27 mg 27 mg PO HS tab 03/09/19 magnesium (500 mg) tablet vitamin B complex 1 cap PO DAILY 03/09/19 magnesium 250 mg tablet 250 mg PO TID PRN tab 11/03/19 albuterol sulfate 90 mcg/actuation 1 - 2 puff INHALATION Q4-6H PRN #1 11/25/19 aerosol inhaler inhaler fluticasone propionate 115 2 puff INHALATION BID #3 inhaler 12/24/19 mcg-salmeterol 21 mcg/actuation HFA inhaler 5-hydroxytryptophan (5-HTP) 100 mg 100 mg PO QAM cap 01/01/20 capsule lithium carbonate 300 mg tablet See Rx Instructions PO TID tab-cap 01/01/20 loxapine succinate 50 mg capsule 50 mg PO as directed cap 01/01/20 quetiapine 400 mg tablet See Rx Instructions PO DAILY 01/01/20 tab-cap sodium fluoride 1.1 %-potassium See Rx Instructions DENTAL BID ml 01/01/20 nitrate 5 % dental paste ketoconazole 2 % shampoo 1 applic TOPICAL .1-2 times weekly 01/22/20 #360 ml docusate sodium 100 mg capsule 300 mg PO DAILY #270 tab-cap 03/02/20 levothyroxine 75 mcg tablet 75 mcg PO QAM #90 tab-cap 04/04/20 omeprazole 20 mg capsule,delayed 20 mg PO QAM #90 tab-cap 04/20/20 release polyethylene glycol 3350 17 17 g PO DAILY PRN #850 g 07/04/20 gram/dose oral powder psyllium husk 0.52 gram capsule 0.52 g PO BID #180 tab-cap 09/12/20 magnesium citrate 300 ml PO ONCE #296 ml 09/30/20 Current Visit Medications: Current Medications Generic Name Dose Route Start Last Admin Trade Name Freq PRN Reason Stop Dose Admin Hyoscyamine Sulfate 0.125 mg 11/02/20 06:28 Hyoscyamine 0.125 Mg Sl/Oral/Chew SL DIRECTED PRN Ringer's Solution 1,000 mls @ 80 mls/hr 11/02/20 06:00 11/02/20 08:30 IV 12/01/20 23:59 80 mls/hr INFUSION ALEXIS Administration IV Miscellaneous Supplies 1 each 11/02/20 06:00 Iv Access IV 12/01/20 23:59 DIRECTED ALEXIS Ondansetron HCl 4 mg 11/02/20 06:28 Ondansetron 4 Mg/2 Ml Vial IVP Q4H PRN PRN Nausea / Vomiting Sodium Chloride 0 ml 11/02/20 06:00 Normal Saline Flush 10 Ml Syr IV 12/01/20 23:59 PRN PRN Sodium Chloride 0 ml 11/02/20 06:00 Normal Saline 10 Ml Vial IJ 12/01/20 23:59 DIRECTED PRN Sterile Water 0 ml 11/02/20 06:00 Water,Injection,Sterile 10 Ml Vial IJ 12/01/20 23:59 DIRECTED PRN PFSH Active Problems Active Problems: Problem Status Onset Code Bladder distension N32.89 Lung density on x-ray ~09/22/20 J98.4 Weight loss, unintentional R63.4 Bronchospasm 12/29/15 J98.01 Anemia D64.9 Constipation K59.00 Intellectual disability F79 Bipolar disorder F31.9 Schizophrenia Seborrheic dermatitis of scalp 10/17/17 L21.9 Severe obstructive sleep apnea 05/29/17 G47.33 Guardianship 06/06/15 Scalp cyst 03/28/17 L72.9 IFG (impaired fasting glucose) 03/28/17 R73.01 Hypothyroidism E03.9 Hyperlipidemia 06/20/15 E78.5 Eczema of hand L30.9 Adult BMI > 30 Medical History Medical History Anemia Bipolar disorder [facility] Psychiatry Bronchospasm (12/29/15) Pt unable to complete PFTs due to mental status, unclear ?asthma vs. COPD? Constipation Disorder of bursae and tendons in shoulder region Hyperlipidemia (06/20/15) 01/2020 labs: 10-year ASCVD risk = 3.6% --> no statin indicated at this time Hypothyroidism Intellectual disability Also has legal guardian (see Guardianship on Problem List) Schizophrenia [facility] Psychiatry Seborrheic dermatitis of scalp (10/17/17) Severe obstructive sleep apnea (05/29/17) sleep study Dr. Kelley, Mask, Bipap 08/2020 Sleep-Rocky Kelley MD Surgical History Surgical History Colonoscopy - IV Sedation (03/13/10) Tobacco Smoking/Tobacco Use Status: Former Tobacco Use Passive smoking exposure: No Alcohol Alcohol Intake: never Substance Use Substance use: Never Substance use type: does not use Vital Signs and Lab Results Vital Signs Most Recent Vital Signs in EMR: Most Recent Vital Signs Temp Pulse Resp BP Pulse Ox 36.3 C L 74 16 144/93 H 96 11/02/20 07:15 11/02/20 07:15 11/02/20 07:15 11/02/20 07:15 11/02/20 07:15 Lab Results Blood Type / Crossmatch: No Data to Display Complete Blood Count: No Data to Display Complete Metabolic Panel: No Data to Display Liver Function Panel: No Data to Display Coagulation Panel: No Data to Display Cardiac Panel: No Data to Display Arterial Blood Gas: No Data to Display Venous Blood Gas: No Data to Display Pancreas Panel: No Data to Display Thyroid Panel: No Data to Display Infectious Disease: No Data to Display Blood Cultures: No Data to Display Toxicology Panel: No Data to Display Anesthesia Assessment and Plan Anesthesia History Personal History: No History of Anesthesia Complications Family History: No Family History of Anesthesia Complications Exercise Tolerance Exercise Tolerance: Metabolic Equivalents<4 Cardiac & Pulmonary Exam Cardiac Exam: Normal S1/S2 Heart Sounds Pulmonary Exam: Clear Bilateral Breath Sounds Airway Exam Known Difficult Airway: No Mallampati Class: 3 Mouth Opening: Normal (> 3cm) Thyromental Distance: Greater than 3 cm Neck Range of Motion: Full ROM Neck Circumference: Normal Teeth Condition: Normal Dentition ASA Classification ASA Score: ASA 2 Emergency Case?: No NPO Status NPO Status: NPO Clears >2 hours, Solids >8 hours Anesthesia Plan Resuscitation Status: Full Code Anesthesia Technique: General Anesthesia Airway Planned: Natural Airway Monitors Used: Standard Monitors
[2020-11-02 09:00] VITALS: BP 119/81; PULSE 68; RESP 16; TEMP 36.6; O2SAT 98
--- NOTE | 2020-11-02 09:14 | W.ANESPOSTOP ---
Postoperative Evaluation Date, Time and Location Date Performed: 11/02/20 Time Performed: 09:14 Patient Location: Day Surgery Unit Vital Signs Most Recent Imported Vital Signs: Most Recent Vital Signs Temp Pulse Resp BP Pulse Ox 36.6 C 68 16 119/81 98 11/02/20 09:00 11/02/20 09:00 11/02/20 09:00 11/02/20 09:00 11/02/20 09:00 Pain Score Most Recent Pain Score: Most Recent Pain Score Pain Level 0 11/02/20 09:00 Assessment Mental Status: Awake (Alert & Oriented to Patient Baseline) Airway and Respiratory Function: Patent airway with normal (patient baseline) respiratory exam Cardiovascular Function: Hemodynamically Stable Hydration Status: Adequately Hydrated Nausea & Vomiting: No Nausea or Vomiting Pain: Pt. Denies Any Pain Peripheral Nerve Block: Patient did not receive a nerve block
[2020-11-02 09:22] VITALS: BP 142/100; PULSE 70; RESP 16; TEMP 36.5; O2SAT 96
[2020-11-02 13:14] VITALS: BMI 26.6
== END 2020-11-02 09:35 | disposition home or self-care (01) ==
LOC: SUR 07:00
PROVIDERS: PCP Nurse Practitioner Family; Visit Provider Surgery
PROC: 0DJD8ZZ Inspection of Lower Intestinal Tract, Via Natural or Artificial Opening Endoscopic (ICD-10-PCS; CPT 45378; principal; 2020-11-02 08:15)
DX: R63.4 Abnormal weight loss (principal); G47.33 Obstructive sleep apnea (adult) (pediatric); F20.9 Schizophrenia, unspecified; M31.9 Necrotizing vasculopathy, unspecified; E03.9 Hypothyroidism, unspecified; E78.5 Hyperlipidemia, unspecified
CPT/HCPCS: 45378

== ENCOUNTER 2020-12-27 02:26 | Outpatient (CLI) | payer MEDICAID, SELFPAY ==
--- NOTE | 2020-12-27 07:00 | DI.RAD_ITS ---
Exam(s) XR CHEST 2V PA LATERAL EXAM: XR CHEST 2V PA LATERAL CLINICAL HISTORY: 3 mo f/u left lung density,j98.4 TECHNIQUE: 2D digital imaging was performed. COMPARISON: CR CHEST 2 VIEWS PA,LAT from 05/12/[address] ABDOMEN PELVIS W from 09/22/2020 CR XR CHEST 2V PA LATERAL from 09/22/2020 FINDINGS: The heart is not enlarged. The lungs are clear and well expanded. No pleural effusion seen. Mediastin al contours appear intact. Previously noted questionable radiodensity of left lung base is no longer visible. There are visible costal chondral calcifications overlying the left lower lung field. IMPRESSION: Normal chest. RADIATION DOSE DELIVERED: Total DLP
== END 2020-12-27 02:46 ==
PROVIDERS: PCP Nurse Practitioner Family; Visit Provider Nurse Practitioner Family
DX: J98.4 Other disorders of lung (principal)
CPT/HCPCS: 71046

== ENCOUNTER 2021-10-02 11:07 | Outpatient (REF) | payer MEDICAID, SELFPAY ==
[2021-10-02 13:22] LABS: BUN 17 mg/dL (7-18); CREATININE 0.9 mg/dL (0.70-1.30)
== END 2021-10-02 11:08 | disposition home or self-care (01) ==
LOC: LBN 11:07
PROVIDERS: PCP Nurse Practitioner Family; Visit Provider Nurse Practitioner Gerontology
DX: R31.9 Hematuria, unspecified (principal); N32.89 Other specified disorders of bladder
CPT/HCPCS: 84520; 82565

== ENCOUNTER → 2021-10-06 00:55 | Outpatient (CLI) | payer MEDICAID, SELFPAY ==
--- NOTE | 2021-10-06 07:30 | DI.US_ITS ---
Exam(s) US RENAL EXAM: US RENAL CLINICAL HISTORY: elevated PVR, urinary rentention, R33.9. TECHNIQUE: Kelley scale, color and spectral Doppler were used. COMPARISON: CT CT ABDOMEN PELVIS W from 09/22/2020 FINDINGS: Renal size in cm: Right: 10 cm left: 11.3 cm Echogenicity: Normal Hydronephrosis: No Cyst or mass: 1.6 centimeters cyst lower pole left kidney. Nephrolithiasis: No Bladder:Normal. No stones or mass. No wall thickening or trabeculation. Prevoid vol:799 cc Postvoid vol:769 cc Prostate volume 12 cc IMPRESSION: Large postvoid bladder residual. DATA REPOSITORY:
== END ==
PROVIDERS: PCP Nurse Practitioner Family; Visit Provider Nurse Practitioner Gerontology
DX: R33.8 Other retention of urine (principal); N28.1 Cyst of kidney, acquired
CPT/HCPCS: 76770

== ENCOUNTER 2022-03-22 04:40 | Outpatient (CLI) | payer MEDICAID, SELFPAY ==
[2022-03-22 08:22] LABS: Abs Immature Grans 0.09 10^3/uL (0.0-0.06); Absolute Basophil Count 0.04 10^3/uL (0.0-0.2); Absolute Eosinophil Count 0.08 10^3/uL (0.0-0.7); Absolute Lymphocyte Count 1.43 10^3/uL (1.2-3.4); Absolute Monocyte Count 0.58 10^3/uL (0.1-0.8); Basophils % 0.6; Eosinophils % 1.3; HCT 38.8 % (40.0-50.0); HGB 12.5 g/dL (13.5-17.5); Immature Grans % 1.4; MCH 30.3 pg (27.0-33.0); MCHC 32.2 % (32.0-36.0); MCV 94 fL (80-95); MPV 8.9 fL (8.0-11.0); Monocytes % 9.3; Neutrophils % 64.4; Platelet Count 287 10^3/uL (130-400); RBC 4.12 10^6/uL (4.36-5.78); RDW 13.1 % (11.8-14.1); RDW-SD 45.5 fL; WBC 6.22 10^3/uL (4.4-10.8)
[2022-03-22 08:31] LABS: Hemoglobin A1C 5.7 % (<5.7)
[2022-03-22 08:55] LABS: ALT 16 U/L (16-63); AST 10 U/L (15-37); Albumin 4.2 g/dL (3.4-5.0); Alkaline Phosphatase 97 U/L (46-116); Anion Gap 5.3 mmol/L (3-11); BUN 23 mg/dL (7-18); Bilirubin, Total 0.3 mg/dL (0.2-1.0); CO2 30.7 mmol/L (21.0-32.0); Calcium 10.1 mg/dL (8.5-10.1); Calculated LDL 112 mg/dL (<100); Chloride 103 mmol/L (98-107); Cholesterol 199 mg/dL (<200); Estimated GFR 89.44 (mL/min/1.73m2); Glucose 104 mg/dL (74-106); HDL Cholesterol 74 mg/dL (40-60); Potassium 4.1 mmol/L (3.5-5.1); Sodium 139 mmol/L (136-145); TSH (W/Ref FT4) 1.77 uIU/mL (0.36-3.74); Total Protein 7.8 g/dL (6.4-8.2); Triglyceride 67 mg/dL (<150)
== END 2022-03-22 04:41 | disposition home or self-care (01) ==
LOC: LBO 04:40
PROVIDERS: PCP Nurse Practitioner Family; Visit Provider Nurse Practitioner Family
DX: E03.9 Hypothyroidism, unspecified (principal); Z51.81 Encounter for therapeutic drug level monitoring; E78.5 Hyperlipidemia, unspecified; R73.01 Impaired fasting glucose
CPT/HCPCS: 36415; 80053; 80061; 83036; 84443; 85025

== ENCOUNTER → 2022-05-08 02:03 | Outpatient (CLI) | payer MEDICAID, SELFPAY ==
--- NOTE | 2022-05-08 08:15 | DI.RAD_ITS ---
Exam(s) XR ABDOMEN FLAT UPRIGHT EXAM: XR ABDOMEN FLAT UPRIGHT CLINICAL HISTORY: assess degree of constipation,H/O BLADDER DISTENSION,K59.00,N32.89. TECHNIQUE: 2D digital imaging was performed. COMPARISON: No exams were available for comparison FINDINGS: 3 views There are few air-fluid levels in the right side of the abdomen seen on the upright view. Is not pos sible to determine if there is free air as the right hemidiaphragm is not completely included in the field of view of the upright image. Small bowel loops are not dilated. There is some air seen in th e colon. No calcifications seen over the kidneys nor along course of the ureters. There is disc space narrowing at L4-5 level noted. IMPRESSION: Findings as above. If clinically indicated repeat upright view to include the entire right hemidiaph ragm can be performed if there is suspicion for free air. There are few air-fluid levels but not beata ear to be an obvious bowel obstruction. DATA REPOSITORY: RADIATION DOSE DELIVERED:
== END ==
PROVIDERS: PCP Nurse Practitioner Family; Visit Provider Nurse Practitioner Family
DX: K59.00 Constipation, unspecified (principal); N32.89 Other specified disorders of bladder
CPT/HCPCS: 74019

== ENCOUNTER 2022-09-18 02:08 | Outpatient (CLI) | payer MEDICAID, SELFPAY ==
[2022-09-18 10:13] LABS: BUN 18 mg/dL (7-18); CREATININE 1.2 mg/dL (0.70-1.30); Estimated GFR 71.42 (mL/min/1.73m2)
== END 2022-09-18 02:09 | disposition home or self-care (01) ==
LOC: LBO 02:08
PROVIDERS: PCP Nurse Practitioner Family; Visit Provider Nurse Practitioner Gerontology
DX: R33.9 Retention of urine, unspecified (principal); N32.89 Other specified disorders of bladder
CPT/HCPCS: 36415; 84520; 82565

== ENCOUNTER 2022-10-24 02:48 | Outpatient (CLI) | payer MEDICAID, SELFPAY ==
--- NOTE | 2022-10-24 08:15 | DI.US_ITS ---
Exam(s) US RENAL EXAM: US RENAL CLINICAL HISTORY: elevated PVR, monitoring hydronephrosis,bladder distension,incomplte TECHNIQUE: Ultrasound of both kidneys performed using standard protocol. COMPARISON: CT CT ABDOMEN PELVIS W from 09/22/2020 US US RENAL from 10/06/2021 FINDINGS: RIGHT KIDNEY: Measures 12 cm in length. No cysts evident. Normal cortical thickness and corticomedullary differenti ation .No solid masses No intrarenal calculi nor hydronephrosis. LEFT KIDNEY: Measures 12 cm in length. No cysts evident. Normal cortical thickness and corticomedullary different iaion. No solids masses. No intrarenal calculi nor hydonephrosis. URINARY BLADDER: The bladder is again noted be grossly distended, as evident on the prior CT scan of September 2020. Prevoid volume is 1886 cc Postvoid volume is 750 cc Bladder wall thickness normal. No evidence of bladder mass nor diverticuli. Ureterovesical jets: Both identified and appear symmetrical Prostate gland: Less than optimally seen but not grossly enlarged. IMPRESSION: 1. Compared to the prior CT scan of September 2020 there is again noted a significantly distended urinary bladder contains 1886 cc prevoid and there is also increased postvoid residual volume is 750 cc. The re is no no gross dilatation the prostate. 2. Mild dilatation of the collecting systems. No gross hydronephrosis. No significant thinning of the cortical mantle of either kidney. DATA REPOSITORY:
== END 2022-10-24 03:08 ==
LOC: DI 02:48
PROVIDERS: PCP Nurse Practitioner Family; Visit Provider Nurse Practitioner Gerontology
DX: N32.89 Other specified disorders of bladder (principal); R33.9 Retention of urine, unspecified
CPT/HCPCS: 76770

== ENCOUNTER 2023-02-27 04:04 | Outpatient (CLI) | payer MEDICAID, SELFPAY ==
[2023-02-27 10:08] LABS: Abs Immature Grans 0.03 10^3/uL (0.0-0.06); Absolute Basophil Count 0.04 10^3/uL (0.0-0.2); Absolute Eosinophil Count 0.05 10^3/uL (0.0-0.7); Absolute Lymphocyte Count 1.29 10^3/uL (1.2-3.4); Absolute Monocyte Count 0.63 10^3/uL (0.1-0.8); Absolute Neutrophil Count 4.57 10^3/uL (1.2-6.7); Basophils % 0.6; Eosinophils % 0.8; HCT 39.2 % (40.0-50.0); HGB 12.7 g/dL (13.5-17.5); Immature Grans % 0.5; Lymphocytes % 19.5; MCH 30.5 pg (27.0-33.0); MCHC 32.4 % (32.0-36.0); MCV 94 fL (80-95); MPV 8.9 fL (8.0-11.0); Monocytes % 9.5; Neutrophils % 69.1; Platelet Count 272 10^3/uL (130-400); RBC 4.17 10^6/uL (4.36-5.78); RDW 13.1 % (11.8-14.1); RDW-SD 44.9 fL; WBC 6.61 10^3/uL (4.4-10.8)
[2023-02-27 10:19] LABS: Hemoglobin A1C 5.6 % (<5.7)
[2023-02-27 10:40] LABS: ALT 18 U/L (16-63); AST 10 U/L (15-37); Albumin 3.7 g/dL (3.4-5.0); Alkaline Phosphatase 87 U/L (46-116); Anion Gap 3.3 mmol/L (3-11); BUN 15 mg/dL (7-18); Bilirubin, Total 0.3 mg/dL (0.2-1.0); CO2 29.7 mmol/L (21.0-32.0); CREATININE 1.1 mg/dL (0.70-1.30); Calcium 10.5 mg/dL (8.5-10.1); Calculated LDL 102 mg/dL (<100); Chloride 104 mmol/L (98-107); Cholesterol 189 mg/dL (<200); Estimated GFR 79.28 (mL/min/1.73m2); Glucose 86 mg/dL (74-106); HDL Cholesterol 65 mg/dL (40-60); Potassium 4.2 mmol/L (3.5-5.1); Sodium 137 mmol/L (136-145); TSH (W/Ref FT4) 1.29 uIU/mL (0.36-3.74); Total Protein 7.4 g/dL (6.4-8.2); Triglyceride 110 mg/dL (<150)
== END 2023-02-27 04:05 | disposition home or self-care (01) ==
LOC: LBO 04:04
PROVIDERS: PCP Nurse Practitioner Family; Visit Provider Nurse Practitioner Family
DX: E03.9 Hypothyroidism, unspecified (principal); D64.9 Anemia, unspecified; R73.01 Impaired fasting glucose; Z13.1 Encounter for screening for diabetes mellitus; E78.5 Hyperlipidemia, unspecified
CPT/HCPCS: 36415; 80053; 80061; 83036; 84443; 85025

== ENCOUNTER 2023-03-20 01:23 | Outpatient (CLI) | payer MEDICAID, SELFPAY ==
[2023-03-20 10:49] LABS: BUN 14 mg/dL (7-18); Estimated GFR 88.88 (mL/min/1.73m2)
== END 2023-03-20 01:24 | disposition home or self-care (01) ==
LOC: LBO 01:25
PROVIDERS: PCP Nurse Practitioner Family; Visit Provider Nurse Practitioner Gerontology
DX: N32.89 Other specified disorders of bladder (principal); R33.9 Retention of urine, unspecified
CPT/HCPCS: 36415; 84520; 80178; 82565

== ENCOUNTER 2023-05-26 10:57 | Emergency (ER) | payer MEDICAID, SELFPAY ==
--- NOTE | 2023-05-26 11:00 | DI.CT_ITS ---
Exam(s) CT HEAD WO EXAM: CT HEAD WO CLINICAL HISTORY: History of falling. TECHNIQUE: Imaging Protocol: Axial computed tomography images with coronal and sagittal reformatted images were created and reviewed COMPARISON: No exams were available for comparison FINDINGS: There are no skull fractures. There is no fluid in the visualized paranasal sinuses. There is no evidence of intracranial hemorrhage, mass effect, or shift of midline structures. There are no extra-axial fluid collections. The ventricles are not enlarged or shifted and there is no blo od within the ventricular system nor within the basal cisterns. IMPRESSION: No acute intracranial findings on this noninfused CT scan of the brain. RADIATION DOSE DELIVERED: 728.85mGy.cm Total DLP DATA REPOSITORY: All CT scans at this facility are submitted to the National Radiology Data Registry (NRDR) Dose Index Registry (DIR) with the [employer] (A[employer]). RADIATION OPTIMIZATION: All CT scans at this facility use at least one of these dose optimization te chniques: automated exposure control; mA and/or kV adjustment per patient size (includes targeted exa ms where dose is matched to clinical indication); or iterative reconstruction.
[2023-05-26 11:09] VITALS: BP 134/83; PULSE 72; RESP 16; TEMP 36.7; O2SAT 97
--- NOTE | 2023-05-26 11:09 | ED.GENADUL_ITS ---
[facility] General Date/Time Provider Initiated Documentation: 05/26/23 11:09. [facility] Narrative: MDM This is an overall very well-appearing normothermic and not tachycardic 58-year-old male with head strike and reassuring CT scan. Patient is not anticoagulated and has no significant signs of trauma so no indication for r epeat CT head. No pain or proportion to suggest necrotizing soft tissue infection. No history of epistaxis. Bilateral upper and lower extremities nontender. No nausea nor vomiting so my suspicion for intracranial hemorrhage is low. No chest pain nor hypoxia and equal breath sounds so my suspicion for pneumothorax is low. Similar doubt PE and ACS given no preceeding CP nor syncope. Care providers are very appropriate so I am not concerned for abuse. Patient reportedly is at neurological baseline according to care providers. He does have a history of intellectual disability and is oriented only to person and place but not time. Given the care providers report the patient is at baseline we will proceed with an empiric trial of discharge with outpatient expectant management. Chronic conditions affecting the care of the patient: Intellectual disability History obtained from an outside historian: Patient's care provider Elana and staff Adis External record review: N/A Medications: N/A Social determinants of health affecting disposition: N/A Management discussed with: N/A Treatment/interventions considered: N/A Response to therapies provided: N/A HPI This is a 58-year-old male with intellectual disability arrived to the emergency department via private vehicle following a fall last night. Patient was reportedly wearing his CPAP. He according to his care providers occasionally takes this off at night. When he does he transiently count was slightly disoriented. He reportedly fell forward into a dresser. He did not lose consciousness. He did not have epistaxis. He denies any cuts in his mouth. He has been ambulatory since his fall. He denies any in his arms and legs. He has not been nauseous nor vomiting. No recent changes in medications. Exam General: Well-appearing in no acute distress speaking in complete sentences. Head: Normocephalic, atraumatic. Eye:[Pupils equal, round reactive to light.] Extraocular eye movements intact. No conjunctival injection. No scleral icterus. Ear, nose, mouth, throat: There is mild tenderness at the bridge of the patient's nose. No crepitance. No deformity. No laceration. Normal voice, handling secretions normally. Neck: Trachea midline. No midline cervical spinal tenderness. Cardiovascular: Well-perfused distal extremities. Respiratory: Nonlabored respiration. Clear lungs bilaterally. Gastrointestinal: Nondistended abdomen. Musculoskeletal: No edema. Moving all 4 extremities spontaneously. No tenderness to bilateral upper and lower extremities. Skin: Normal for age and race, grossly normal temperature and turgor. No acute rash. Neurologic: Alert to person and place but not time. Following commands. Care providers report this is baseline. Related Data Home Medications Medication Instructions Recorded Confirmed ibuprofen 200 mg capsule 200 mg PO Q6H PRN 06/06/15 05/08/23 multivitamin with minerals 1 ea PO DAILY ##90 06/06/15 05/08/23 (Multiple Vitamin-Minerals tablet) inhalational spacing device (Space ##1 12/14/15 05/08/23 Chamber Plus) lorazepam 1 mg tablet 1 mg PO HS 04/24/16 05/08/23 omega 2-xln-rws-fish oil 1,000 mg 1 cap PO TID 05/02/18 05/08/23 (120 mg-180 mg) capsule (Fish Oil) zinc 15 mg tablet 15 mg PO DAILY 05/02/18 05/08/23 5-hydroxytryptophan (5-HTP) 100 mg 100 mg PO QAM 01/01/20 05/08/23 capsule (5-HTP) sodium fluoride 1.1 %-potassium See Rx Instructions dental BID 01/01/20 05/08/23 nitrate 5 % dental paste (PreviDent 5000 Enamel Protect) fluticasone propionate 115 2 puff inhalation BID ##3 01/19/21 05/08/23 mcg-salmeterol 21 mcg/actuation HFA inhaler (Advair HFA) lithium carbonate 150 mg capsule 150 mg PO DAILY 02/10/21 05/08/23 lithium carbonate 300 mg tablet See Rx Instructions PO TID 02/10/21 05/08/23 loxapine succinate 50 mg capsule See Rx Instructions PO as directed 02/10/21 05/08/23 quetiapine 200 mg tablet 200 mg PO DAILY 02/10/21 05/08/23 quetiapine 400 mg tablet (Seroquel) 400 mg PO QHS 02/10/21 05/08/23 tiagabine 4 mg tablet (Gabitril) See Rx Instructions PO QHS 02/10/21 05/08/23 ketoconazole 2 % shampoo 1 applic topical .1-2 times weekly 06/22/21 05/08/23 #360 mL albuterol sulfate 90 mcg/actuation 1 - 2 puff inhalation Q4-6H PRN ##1 12/22/21 05/08/23 aerosol inhaler (ProAir HFA) magnesium 250 mg tablet 250 mg PO TID PRN anxiety or pain 05/24/22 05/08/23 #270 tabs melatonin 5 mg tablet 15 mg (3 x 5 mg) PO HS PRN sleep 05/24/22 05/08/23 #90 tabs vitamin B complex 1 cap PO DAILY #90 caps 05/24/22 05/08/23 cholecalciferol (vitamin D3) 50 2,000 unit PO DAILY #90 caps 05/30/22 05/08/23 mcg (2,000 unit) capsule levothyroxine 75 mcg tablet 75 mcg PO QAM #90 tab-caps 07/11/22 05/08/23 docusate sodium 100 mg capsule 300 mg (3 x 100 mg) PO DAILY 11/16/22 05/08/23 (Colace) constipation #270 tab-caps polyethylene glycol 3350 17 17 g PO BID constipation #850 grams 12/13/22 05/08/23 gram/dose oral powder (Miralax) omeprazole 20 mg capsule,delayed 20 mg PO QAM #90 tab-caps 01/28/23 05/08/23 release CPAP inhalation 02/01/23 05/08/23 psyllium husk 0.52 gram capsule 1.04 g (2 x 0.52 gram) PO BID #360 02/12/23 05/08/23 tab-caps urea 39 % topical cream 1 applic topical .QD to BID #227 04/30/23 05/08/23 grams clotrimazole-betamethasone 1 1 applic topical ONCE #45 grams 05/08/23 05/08/23 %-0.05 % topical cream Previous Rx's Medication Instructions Recorded fluticasone propionate 115 2 puff inhalation BID ##3 01/19/21 mcg-salmeterol 21 mcg/actuation HFA inhaler (Advair HFA) ketoconazole 2 % shampoo 1 applic topical .1-2 times weekly 06/22/21 #360 mL albuterol sulfate 90 mcg/actuation 1 - 2 puff inhalation Q4-6H PRN ##1 12/22/21 aerosol inhaler (ProAir HFA) magnesium 250 mg tablet 250 mg PO TID PRN anxiety or pain 05/24/22 #270 tabs melatonin 5 mg tablet 15 mg (3 x 5 mg) PO HS PRN sleep 05/24/22 #90 tabs vitamin B complex 1 cap PO DAILY #90 caps 05/24/22 cholecalciferol (vitamin D3) 50 2,000 unit PO DAILY #90 caps 05/30/22 mcg (2,000 unit) capsule levothyroxine 75 mcg tablet 75 mcg PO QAM #90 tab-caps 07/11/22 docusate sodium 100 mg capsule 300 mg (3 x 100 mg) PO DAILY 11/16/22 (Colace) constipation #270 tab-caps polyethylene glycol 3350 17 17 g PO BID constipation #850 grams 12/13/22 gram/dose oral powder (Miralax) omeprazole 20 mg capsule,delayed 20 mg PO QAM #90 tab-caps 01/28/23 release psyllium husk 0.52 gram capsule 1.04 g (2 x 0.52 gram) PO BID #360 02/12/23 tab-caps urea 39 % topical cream 1 applic topical .QD to BID #227 04/30/23 grams clotrimazole-betamethasone 1 1 applic topical ONCE #45 grams 05/08/23 %-0.05 % topical cream Allergies Allergy/AdvReac Type Severity Reaction Status Date / Time acetaminophen [From Tylenol] Allergy Unknown unknown Verified 05/08/23 11:32 chlorpromazine HCl Allergy Unknown unknown Verified 05/08/23 11:32 [From Thorazine] clozapine [From Clozaril] Allergy Unknown unknown Verified 05/08/23 11:32 haloperidol [From Haldol] Allergy Unknown unknown Verified 05/08/23 11:32 haloperidol lactate Allergy Unknown unknown Verified 05/08/23 11:32 [From Haldol] risperidone [From Risperdal] Allergy Unknown unknown Verified 05/08/23 11:32 PFSH All Active Problems (Updated 05/26/23 @ 12:11 by Adis Cooper MD) Hx of falling (Acute) Eczema (Acute) Fissures in skin of both feet (Acute) Hyperkeratosis (Acute) Tinea pedis (Acute) Nail dystrophy (Acute) Obesity (Chronic) Bladder distension (Acute) 09/22/20 CT Bronchospasm (Chronic 12/29/15) Pt unable to complete PFTs due to mental status, unclear ?asthma vs. COPD? Anemia (Chronic) Constipation (Chronic) Intellectual disability (Chronic) Also has legal guardian (see Guardianship on Problem List) Bipolar disorder (Chronic) [facility] Schizophrenia (Chronic) [facility] Seborrheic dermatitis of scalp (Chronic 10/17/17) Severe obstructive sleep apnea (Chronic 05/29/17) BIPAP Guardianship (Chronic 06/06/15) Legal Guardian: Yadira Boyle; Act 248: Registered sex offender, cannot be around children & needs 24 hr supervision (see [facility] Information Sheet -- scanned into chart 06/06/2015) Scalp cyst (Acute 03/28/17) IFG (impaired fasting glucose) (Chronic 03/28/17) Hypothyroidism (Acute) Hyperlipidemia (Chronic 06/20/15) 03/2022 labs: 10-year ASCVD risk = 3.4% Eczema of hand (Acute) Medical History SARS-CoV-2 positive (~12/22/21) Disorder of bursae and tendons in shoulder region Surgical History Colonoscopy - IV Sedation (03/13/10) Family History Father Alcohol abuse Arthritis Paternal Uncle Cancer Other Cancer of lung Social History Smoking/Tobacco Use Status: Former Tobacco Use Quit Date: 05/13/94 Smoking risk assessment performed?: Yes Alcohol Intake: never Drug use: Never Substance use type: does not use Adopted: No Caregiver/Support person: Yes (Human Services) Foster care: No Household members: other Details: Lives in [facility] assisted Housing: assisted living facility Number of Children: 0 number of grandchildren: 0 Communication Needs: None Education Level: high school Do you need help understanding health information?: Often current occupation: Disabled Pets and animals: No Sexually active: No Do you think of yourself as: straight/heterosexual Current gender identity: male What is your relationship status?: never How often do you talk on the phone with friends or family?: never How often do you get together with friends or relatives?: never How often do you attend islam or buddhist services?: decline to answer Do you belong to any clubs or organized social groups?: no Panel score (0-1 are the most socially isolated patients): 0 What type of physical activity do you participate in: walking Duration: < 15 minutes/day Frequency: 1-2 times per week Special hilda needs: No Seatbelt use: always Helmet use: Yes Drive intox or ride w/intox pharmacy delivery driver: No Additional Social history: Unable to assess [facility] Medical Decision Making Quality:SDOH Health Related Social Needs: No Data to Display Discharge Plan Disposition Patient Disposition: Home Discharge Details Clinical Impression: Hx of falling Primary Care Provider: Sue Fischer ED Provider: Adis Cooper Home Meds and New Rx's Prescriptions: Continued omega 9-ayc-pkt-fish oil [Fish Oil] 1,000 mg (120 mg-180 mg) capsule 1 cap PO TID zinc 15 mg tablet 15 mg PO DAILY fluticasone propion-salmeterol [Advair HFA] 115-21 mcg/actuation HFA aerosol inhaler 2 puff Inhalation BID Qty: 3 3RF lithium carbonate 150 mg capsule 150 mg PO DAILY Rx Instructions: at 8 am per med list dated 02/11/21 gc quetiapine 200 mg tablet 200 mg PO DAILY Rx Instructions: 400mg hs and 200 mg hs to total 600mg hs per med list 02/10/21 [facility] clotrimazole-betamethasone 1-0.05 % cream 1 applic topical ONCE Qty: 45 4RF ibuprofen 200 MG capsule 200 mg PO Q6H PRN Multiple Vitamin-Minerals 1 EACH tablet 1 ea PO DAILY Qty: 90 (DME) Space Chamber Plus 1 EACH spacer 1 ea Miscellaneous PRN Qty: 1 Rx Instructions: To be used with inhaler. lorazepam 1 MG tablet 1 mg PO HS 5-hydroxytryptophan (5-HTP) [5-HTP] 100 mg capsule 100 mg PO QAM sodium fluoride-pot nitrate [PreviDent 5000 Enamel Protect] 1.1-5 % paste See Rx Instructions Dental BID Patient Comments: 10/17/17 Taking BID. zn Rx Instructions: 100 ml dental twice a day; tiagabine [Gabitril] 4 mg tablet See Rx Instructions PO QHS Rx Instructions: 4 mg one (tab)8am, 4 mg 1(1 tab) 2pm and 8 mg (2 tabs) at hs [facility] list 02/11/21 [facility] quetiapine [Seroquel] 400 mg tablet 400 mg PO QHS Rx Instructions: 400mg hs and 200 mg hs to total 600mg hs per med list 02/10/21 [facility] lithium carbonate 300 mg tablet See Rx Instructions PO TID Patient Comments: Rx Instructions: Take 300 mg 8AM, 300 mg 2PM, and 300 mg 8pm po TID; [facility] loxapine succinate 50 mg capsule See Rx Instructions PO as directed Rx Instructions: PO as directed; 1 tab 8AM, 1 tab 2PM and 2 tabs 8 pm ketoconazole 2 % shampoo 1 applic Topical .1-2 times weekly Qty: 360 3RF Rx Instructions: Apply to affected area (scalp) once daily & let sit on skin for 5-10 minutes before washing off. albuterol sulfate [ProAir HFA] 90 mcg/actuation HFA aerosol inhaler 1 - 2 puff Inhalation Q4-6H PRN Qty: 1 3RF Rx Instructions: DISPENSE ALBUTEROL INHALER BRAND COVERED BY INSURANCE vitamin B complex Capsule 1 cap PO DAILY Qty: 90 3RF Rx Instructions: Per Dr. Kelley ([facility]) magnesium 250 mg tablet 250 mg PO TID PRN (Reason: anxiety or pain) Qty: 270 3RF Rx Instructions: Per Dr. Kelley ([facility]) melatonin 5 mg tablet 15 mg PO HS PRN (Reason: sleep) Qty: 90 3RF Rx Instructions: Per Dr. Kelley ([facility]) cholecalciferol (vitamin D3) 50 mcg (2,000 unit) capsule 2,000 unit PO DAILY Qty: 90 3RF Rx Instructions: 03/09/19-DR KELLEY [facility] SLEEP levothyroxine 75 mcg tablet 75 mcg PO QAM Qty: 90 3RF docusate sodium [Colace] 100 mg capsule 300 mg PO DAILY Qty: 270 3RF polyethylene glycol 3350 [Miralax] 17 gram/dose powder 17 g PO BID Qty: 850 3RF omeprazole 20 mg capsule,delayed release(DR/EC) 20 mg PO QAM Qty: 90 3RF Rx Instructions: Take in the morning at least 30 minutes before first meal CPAP inhalation psyllium husk 0.52 gram capsule 1.04 g PO BID Qty: 360 3RF Rx Instructions: Take 2 pills twice daily with a full glass of water urea 39 % cream 1 applic topical .QD to BID Qty: 227 11RF Rx Instructions: Apply to feet, avoid in-between toes. May dispense available strength ranging from 30% to 40% concentration, depending on availability. Discharge Instructions Additional Instructions: You were seen in the emergency department for your fall. Your CAT scan showed no sign of any bleeding in her head. As we discussed if you develop any nausea vomiting weakness or take any other follow-up please return to the emergency department. Otherwise please follow-up with your primary care provider as needed next week. Discharge Data Discharge Date/Time-TO BE ENTERED AT DEPARTURE: 05/26/23 13:04
--- NOTE | 2023-05-26 11:34 | DI.VRAD_ITS ---
PROCEDURE INFORMATION: Exam: CT Head Without Contrast Exam date and time: 05/26/2023 11:17 AM Age: 58 years old Clinical indication: Other: HX of falling TECHNIQUE: Imaging protocol: Computed tomography of the head without contrast. Radiation optimization: All CT scans at this facility use at least one of these dose optimization techniques: automated exposure control; mA and/or kV adjustment per patient size (includes targeted exams where dose is matched to clinical indication); or iterative reconstruction. COMPARISON: No relevant prior studies available. FINDINGS: Brain: Kelley-white matter differentiation is within normal limits.. No hemorrhage. Unremarkable white matter. No mass effect. Mild parenchymal volume loss most prominent along the anterior sylvian fissure and along the anterior interhemispheric falx. Cerebral ventricles: No ventriculomegaly. Paranasal sinuses: Visualized sinuses are unremarkable. No fluid levels. Mastoid air cells: Visualized mastoid air cells are well aerated. Bones/joints: Unremarkable. No acute fracture. Soft tissues: Sebaceous cysts in left parietal scalp , the suboccipital scalp and posterior parietal scalp. IMPRESSION: No acute intracranial abnormality. Dictated and Authenticated by: Perfecto Cochran MD. Ordering:ANNITA Arceo MD
[2023-05-26 13:02] VITALS: BP 132/80; PULSE 70; RESP 18; O2SAT 98
== END 2023-05-26 13:04 | disposition home or self-care (01) ==
PROVIDERS: Emergency Provider Emergency Medicine; PCP Nurse Practitioner Family
DX: S00.90XA Unspecified superficial injury of unspecified part of head, initial encounter (principal); W01.190A Fall on same level from slipping, tripping and stumbling with subsequent striking against furniture, initial encounter; Y93.89 Activity, other specified; Y92.013 Bedroom of single-family (private) house as the place of occurrence of the external cause
CPT/HCPCS: 99284; 70450

== ENCOUNTER 2023-06-12 11:33 | Emergency (ER) | payer MEDICAID, SELFPAY ==
[2023-06-12] VITALS (7 sets, daily range): BP systolic 153–160; BP diastolic 65–114; PULSE 73–75; RESP 14–24; TEMP 36.5; O2SAT 96–98
--- NOTE | 2023-06-12 11:45 | RT.EKG_ITS ---
APPROVED REPORT Exam: Resting ECG Reason for Exam: fall, ams Patient Location: E HR:73 bpm ECG Measurements Heart Rate 73 AXIS LA 181 P 66 QRSd 88 QRS 80 QT 444 T 81 QTc 489 Conclusion Sinus rhythm...normal P axis, V-rate 60- 99 Physician: no stemi
--- NOTE | 2023-06-12 11:45 | DI.CT_ITS ---
Exam(s) CT CHEST WO EXAM: CT CHEST WO CLINICAL HISTORY: fall, back and chest pain. TECHNIQUE: Imaging protocol: Axial computed tomography images were obtained and coronal and sagittal reformatted images were created and reviewed. COMPARISON: CT CT ABDOMEN PELVIS W from 09/22/2020 FINDINGS: The examination is limited due to patient motion artifact. Tracheobronchial tree: Patent where visualized. Pulmonary parenchyma: No consolidation or dominant measurable mass. No architectural distortion. Mediastinum and Arti: No dominant adenopathy or fluid collection. The esophagus is unremarkable. Thyroid gland: Unremarkable. Pleura: No effusion or pneumothorax. Heart: The heart is not dilated. No coronary artery calcifications are seen. No pericardial effusion. Aorta: Thoracic aorta non-dilated. Atherosclerosis. Upper abdomen: Unremarkable. Lymph nodes: Within normal limits. Soft tissues: Mild gynecomastia bilaterally. Bones:Within normal limits for the patient's age. There are degenerative changes seen in the thoraci c spine but no acute fracture or subluxation is identified. No displaced rib fractures are seen. IMPRESSION: No acute pulmonary process. No acute fracture. RADIATION DOSE DELIVERED: 778.48 mGy.cm Total DLP 778.48 mGy.cm Total DLP DATA REPOSITORY: All CT scans at this facility are submitted to the National Radiology Data Registry (NRDR) Dose Index Registry (DIR) with the [employer] (ACR). RADIATION OPTIMIZATION: All CT scans at this facility use at least one of these dose optimization te chniques: automated exposure control; mA and/or kV adjustment per patient size (includes targeted exa ms where dose is matched to clinical indication); or iterative reconstruction.
--- NOTE | 2023-06-12 11:45 | DI.CT_ITS ---
Exam(s) CT CERVICAL SPINE WO EXAM: CT CERVICAL SPINE WO CLINICAL HISTORY: fall, pain. TECHNIQUE: Imaging Protocol: Axial computed tomography images with coronal and sagittal reformatted images were created and reviewed COMPARISON: CT CT BRAIN NECK CTA from 06/12/2023 FINDINGS: Bones: No acute fracture or subluxation. There is straightening of the normal cervical lordosis. Thi s may be due to muscle spasm or patient positioning. Soft Tissues: Unremarkable. Lung Apices: Clear. IMPRESSION: No acute fracture or subluxation in the cervical spine. RADIATION DOSE DELIVERED: Total DLP Total DLP DATA REPOSITORY: All CT scans at this facility are submitted to the National Radiology Data Registry (NRDR) Dose Index Registry (DIR) with the [employer] (ACR). RADIATION OPTIMIZATION: All CT scans at this facility use at least one of these dose optimization te chniques: automated exposure control; mA and/or kV adjustment per patient size (includes targeted exa ms where dose is matched to clinical indication); or iterative reconstruction.
--- NOTE | 2023-06-12 11:46 | DI.CT_ITS ---
Exam(s) CT BRAIN NECK CTA EXAM: CT BRAIN NECK CTA CLINICAL HISTORY: dysphasia, memory change, weakness. TECHNIQUE: Imaging Protocol: Axial CT angiography was performed with multi-slice acquisition and mu lti-planar and/or 3D reconstructions. CONTRAST MATERIAL: Intravenous: Omnipaque 350 contrast volume:100 mL COMPARISON: CT CT HEAD WO from 05/26/[address] CHEST WO from 06/12/2023 FINDINGS: The examination is limited due to patient motion artifact. CT Head W/O and W: Ventricles and Extra axial spaces: Normal in size and morphology for the patient's age. Hemorrhage: None. Cerebral parenchyma: No acute territorial infarct is seen. Midline shift: None. Brainstem/Cerebellum: Normal. Calvarium: Normal. Visualized Paranasal sinuses/Mastoids: Clear. Soft Tissues: Unremarkable. Enhancement: Unremarkable. CTA Neck W: Common Carotid: Right: No dissection, occlusion or significant stenosis. Mild atherosclerosis in the common carotid artery but no significant stenosis. Left: No dissection, occlusion or significant stenosis. External Carotid: Right: No occlusion or significant stenosis. Left: No occlusion or significant stenosis. Internal Carotid: Right: No dissection, occlusion or significant stenosis. There is mild atherosclerosis at the origin of the right internal carotid artery but no significant stenosis. Left: No dissection, occlusion or significant stenosis. There is atherosclerosis at the origin of th e left internal carotid artery but no significant stenosis. Vertebral Artery: Right: No dissection, occlusion or significant stenosis. Left: No dissection, occlusion or significant stenosis. Lung Apices: Normal. Bones: Within normal limits for the patient's age. Soft Tissues: Normal. Thyroid gland: Unremarkable. CTA Brain W: Internal Carotid Arteries: No aneurysm, occlusion or significant stenosis. Anterior Cerebral Arteries: Right: No aneurysm, occlusion or significant stenosis. Left: No aneurysm, occlusion or significant stenosis. Middle Cerebral Arteries: Right: No aneurysm, occlusion or significant stenosis. Left: No aneurysm, occlusion or significant stenosis. Posterior Cerebral Arteries: Right: No aneurysm, occlusion or significant stenosis. Left: No aneurysm, occlusion or significant stenosis. The left BUNGHOLE BORER arises from the left PCOM which i s a normal variant. Vertebral Arteries: Right: No aneurysm, occlusion or significant stenosis. Left: No aneurysm, occlusion or significant stenosis. Basilar Artery: No aneurysm, occlusion or significant stenosis. IMPRESSION: 1. No large vessel occlusion or significant stenosis on the CT angiography of the head. 2. No acute intracranial process. 3. No occlusion or significant stenosis on the CT angiography of the neck. RADIATION DOSE DELIVERED: 2064.37 mGy.cm Total DLP DATA REPOSITORY: All CT scans at this facility are submitted to the National Radiology Data Registry (NRDR) Dose Index Registry (DIR) with the [employer] (ACR). RADIATION OPTIMIZATION: All CT scans at this facility use at least one of these dose optimization te chniques: automated exposure control; mA and/or kV adjustment per patient size (includes targeted exa ms where dose is matched to clinical indication); or iterative reconstruction.
--- NOTE | 2023-06-12 11:46 | DI.CT_ITS ---
Exam(s) CT THORACIC SPINE RECONS EXAM: CT THORACIC SPINE RECONS CLINICAL HISTORY: back pain post fall. TECHNIQUE: Imaging Protocol: Axial computed tomography images with coronal and sagittal reformatted images were created and reviewed. COMPARISON: CT CT ABDOMEN PELVIS W from 09/22/[address] CHEST WO from 06/12/[address] CERVICAL SPINE WO from 06/12/2023 FINDINGS: Bones: No fractures or dislocations are seen in the thoracic spine. The alignment of the spine is no rmal including the cervicothoracic junction. Soft tissues: The soft tissues of the chest are unremarkable. No large disk herniations are identifie d. IMPRESSION: No evidence of an acute fracture or subluxation in the thoracic spine. RADIATION DOSE DELIVERED: Total DLP Total DLP DATA REPOSITORY: All CT scans at this facility are submitted to the National Radiology Data Registry (NRDR) Dose Index Registry (DIR) with the [employer] (ACR). RADIATION OPTIMIZATION: All CT scans at this facility use at least one of these dose optimization te chniques: automated exposure control; mA and/or kV adjustment per patient size (includes targeted exa ms where dose is matched to clinical indication); or iterative reconstruction.
[2023-06-12 12:15] LABS: Abs Immature Grans 0.02 10^3/uL (0.0-0.06); Absolute Basophil Count 0.04 10^3/uL (0.0-0.2); Absolute Eosinophil Count 0.13 10^3/uL (0.0-0.7); Absolute Lymphocyte Count 1.35 10^3/uL (1.2-3.4); Absolute Monocyte Count 0.48 10^3/uL (0.1-0.8); Absolute Neutrophil Count 3.71 10^3/uL (1.2-6.7); Basophils % 0.7; Eosinophils % 2.3; HCT 41.6 % (40.0-50.0); HGB 13.6 g/dL (13.5-17.5); Immature Grans % 0.3; Lymphocytes % 23.6; MCH 30.8 pg (27.0-33.0); MCHC 32.7 % (32.0-36.0); MCV 94 fL (80-95); MPV 9.6 fL (8.0-11.0); Monocytes % 8.4; Neutrophils % 64.7; Platelet Count 300 10^3/uL (130-400); RBC 4.42 10^6/uL (4.36-5.78); RDW 13.2 % (11.8-14.1); RDW-SD 46.1 fL; WBC 5.73 10^3/uL (4.4-10.8)
[2023-06-12] MEDS: Omnipaque 350 MG/ML 100 ML BTL 85 ML IJ (12:23)
[2023-06-12 12:33] LABS: ALT 20 U/L (16-63); AST 11 U/L (15-37); Albumin 3.7 g/dL (3.4-5.0); Alkaline Phosphatase 89 U/L (46-116); Anion Gap 5.8 mmol/L (3-11); BUN 20 mg/dL (7-18); Bilirubin, Total 0.3 mg/dL (0.2-1.0); CO2 30.2 mmol/L (21.0-32.0); CREATININE 1.2 mg/dL (0.70-1.30); Calcium 10.2 mg/dL (8.5-10.1); Chloride 106 mmol/L (98-107); Creatine Kinase 42 U/L (39-308); Estimated GFR 70.98 (mL/min/1.73m2); Glucose 98 mg/dL (74-106); Magnesium 2.6 mg/dL (1.8-2.4); Potassium 4.3 mmol/L (3.5-5.1); Sodium 142 mmol/L (136-145); Total Protein 7.2 g/dL (6.4-8.2); Troponin I < 50 ng/L (< or =60)
[2023-06-12 12:44] LABS: TSH (W/Ref FT4) 1.33 uIU/mL (0.36-3.74)
--- NOTE | 2023-06-12 15:11 | W.ED.GENAD ---
HPI General Date/Time Provider Initiated Documentation: 06/12/23 11:38. HPI Narrative: This 58-year-old male with past medical history of bipolar, schizophrenia, intellectual disability, frequent falls, hypothyroidism presents with headache and back pain, patient reportedly fell last evening and has had slurred speech and weakness since patient has awoken this morning. Last known normal was last evening. No prior history of CVA. Fall was not witnessed last evening reportedly. Denies prior presentations similar to this in the past, denies any risk of illicit substance use. Denies any alcohol exposure. Meds are administered by staff reportedly. Related Data Home Medications Medication Instructions Recorded Confirmed ibuprofen 200 mg capsule 200 mg PO Q6H PRN 06/06/15 05/08/23 multivitamin with minerals 1 ea PO DAILY ##90 06/06/15 05/08/23 (Multiple Vitamin-Minerals tablet) inhalational spacing device (Space ##1 12/14/15 05/08/23 Chamber Plus) lorazepam 1 mg tablet 1 mg PO HS 04/24/16 05/08/23 omega 8-zyi-vzd-fish oil 1,000 mg 1 cap PO TID 05/02/18 05/08/23 (120 mg-180 mg) capsule (Fish Oil) zinc 15 mg tablet 15 mg PO DAILY 05/02/18 05/08/23 5-hydroxytryptophan (5-HTP) 100 mg 100 mg PO QAM 01/01/20 05/08/23 capsule (5-HTP) sodium fluoride 1.1 %-potassium See Rx Instructions dental BID 01/01/20 05/08/23 nitrate 5 % dental paste (PreviDent 5000 Enamel Protect) fluticasone propionate 115 2 puff inhalation BID ##3 01/19/21 05/08/23 mcg-salmeterol 21 mcg/actuation HFA inhaler (Advair HFA) lithium carbonate 150 mg capsule 150 mg PO DAILY 02/10/21 05/08/23 lithium carbonate 300 mg tablet See Rx Instructions PO TID 02/10/21 05/08/23 loxapine succinate 50 mg capsule See Rx Instructions PO as directed 02/10/21 05/08/23 quetiapine 200 mg tablet 200 mg PO DAILY 02/10/21 05/08/23 quetiapine 400 mg tablet (Seroquel) 400 mg PO QHS 02/10/21 05/08/23 tiagabine 4 mg tablet (Gabitril) See Rx Instructions PO QHS 02/10/21 05/08/23 ketoconazole 2 % shampoo 1 applic topical .1-2 times weekly 06/22/21 05/08/23 #360 mL albuterol sulfate 90 mcg/actuation 1 - 2 puff inhalation Q4-6H PRN ##1 12/22/21 05/08/23 aerosol inhaler (ProAir HFA) melatonin 5 mg tablet 15 mg (3 x 5 mg) PO HS PRN sleep 05/24/22 05/08/23 #90 tabs vitamin B complex 1 cap PO DAILY #90 caps 05/24/22 05/08/23 cholecalciferol (vitamin D3) 50 2,000 unit PO DAILY #90 caps 05/30/22 05/08/23 mcg (2,000 unit) capsule docusate sodium 100 mg capsule 300 mg (3 x 100 mg) PO DAILY 11/16/22 05/08/23 (Colace) constipation #270 tab-caps polyethylene glycol 3350 17 17 g PO BID constipation #850 grams 12/13/22 05/08/23 gram/dose oral powder (Miralax) omeprazole 20 mg capsule,delayed 20 mg PO QAM #90 tab-caps 01/28/23 05/08/23 release CPAP inhalation 02/01/23 05/08/23 psyllium husk 0.52 gram capsule 1.04 g (2 x 0.52 gram) PO BID #360 02/12/23 05/08/23 tab-caps urea 39 % topical cream 1 applic topical .QD to BID #227 04/30/23 05/08/23 grams clotrimazole-betamethasone 1 1 applic topical ONCE #45 grams 05/08/23 05/08/23 %-0.05 % topical cream magnesium 250 mg tablet 250 mg PO TID PRN anxiety or pain 06/04/23 #270 tabs levothyroxine 75 mcg tablet 75 mcg PO QAM #90 tab-caps 06/06/23 Previous Rx's Medication Instructions Recorded fluticasone propionate 115 2 puff inhalation BID ##3 01/19/21 mcg-salmeterol 21 mcg/actuation HFA inhaler (Advair HFA) ketoconazole 2 % shampoo 1 applic topical .1-2 times weekly 06/22/21 #360 mL albuterol sulfate 90 mcg/actuation 1 - 2 puff inhalation Q4-6H PRN ##1 12/22/21 aerosol inhaler (ProAir HFA) melatonin 5 mg tablet 15 mg (3 x 5 mg) PO HS PRN sleep 05/24/22 #90 tabs vitamin B complex 1 cap PO DAILY #90 caps 05/24/22 cholecalciferol (vitamin D3) 50 2,000 unit PO DAILY #90 caps 05/30/22 mcg (2,000 unit) capsule docusate sodium 100 mg capsule 300 mg (3 x 100 mg) PO DAILY 11/16/22 (Colace) constipation #270 tab-caps polyethylene glycol 3350 17 17 g PO BID constipation #850 grams 12/13/22 gram/dose oral powder (Miralax) omeprazole 20 mg capsule,delayed 20 mg PO QAM #90 tab-caps 01/28/23 release psyllium husk 0.52 gram capsule 1.04 g (2 x 0.52 gram) PO BID #360 02/12/23 tab-caps urea 39 % topical cream 1 applic topical .QD to BID #227 04/30/23 grams clotrimazole-betamethasone 1 1 applic topical ONCE #45 grams 05/08/23 %-0.05 % topical cream magnesium 250 mg tablet 250 mg PO TID PRN anxiety or pain 06/04/23 #270 tabs levothyroxine 75 mcg tablet 75 mcg PO QAM #90 tab-caps 06/06/23 Allergies Allergy/AdvReac Type Severity Reaction Status Date / Time acetaminophen [From Tylenol] Allergy Unknown unknown Verified 06/12/23 10:18 chlorpromazine HCl Allergy Unknown unknown Verified 06/12/23 10:18 [From Thorazine] clozapine [From Clozaril] Allergy Unknown unknown Verified 06/12/23 10:18 haloperidol [From Haldol] Allergy Unknown unknown Verified 06/12/23 10:18 haloperidol lactate Allergy Unknown unknown Verified 06/12/23 10:18 [From Haldol] risperidone [From Risperdal] Allergy Unknown unknown Verified 06/12/23 10:18 General Stated Complaint: AMS/LOC TEDDY: 2 Course Vital Signs Vital signs: Vital Signs Pulse 73 06/12/23 11:28 Respiratory Rate 20 01/31/24 11:28 Blood Pressure 160/114 H 06/12/23 11:28 Pulse Oximetry 98 06/12/23 11:28 Temperature 36.5 C 06/12/23 11:33 Temperature Source Temporal Artery Scan 06/12/23 11:33 Pulse 74 06/12/23 12:01 Pulse 73 06/12/23 12:10 Respiratory Rate 24 06/12/23 12:10 Respiratory Effort Normal, Non-Labored 06/12/23 11:52 Respiratory Depth Normal 06/12/23 11:52 Respiratory Pattern Normal 06/12/23 11:52 Blood Pressure 153/65 H 06/12/23 12:01 Blood Pressure Mean 99 06/12/23 12:01 Blood Pressure Position Supine 06/12/23 11:33 Pulse Oximetry 97 06/12/23 12:10 Oxygen Delivery Method Room Air 06/12/23 11:33 Oxygen Flow Rate 0 06/12/23 11:33 Pain Level 10 06/12/23 11:33 Lab/Test Results Lab/Test Results: 06/12/23 13:59 Blood Blood Culture - Pending 06/12/23 11:40 Blood Blood Culture - Pending Laboratory Tests Range/Units 06/12/23 11:40 WBC (4.4-10.8) 10^3/uL 5.73 RBC (4.36-5.78) 10^6/uL 4.42 Hgb (13.5-17.5) g/dL 13.6 Hct (40.0-50.0) % 41.6 MCV (80-95) fL 94 MCH (27.0-33.0) pg 30.8 MCHC (32.0-36.0) % 32.7 RDW (11.8-14.1) % 13.2 Plt Count (130-400) 10^3/uL 300 MPV (8.0-11.0) fL 9.6 Immature Gran % 0.3 Neutrophils % 64.7 Lymphocytes % 23.6 Monocytes % 8.4 Eosinophils % 2.3 Basophils % 0.7 Nucleated RBC % (0.0-0.3) % 0.0 Absolute Neutrophils (1.2-6.7) 10^3/uL 3.71 Absolute Lymphocytes (1.2-3.4) 10^3/uL 1.35 Absolute Monocytes (0.1-0.8) 10^3/uL 0.48 Absolute Eosinophils (0.0-0.7) 10^3/uL 0.13 Absolute Basophils (0.0-0.2) 10^3/uL 0.04 Sodium (136-145) mmol/L 142 Potassium (3.5-5.1) mmol/L 4.3 Chloride (98-107) mmol/L 106 Carbon Dioxide (21.0-32.0) mmol/L 30.2 Anion Gap (3-11) mmol/L 5.8 BUN (7-18) mg/dL 20 H Creatinine (0.70-1.30) mg/dL 1.2 Est GFR (CKD-EPI 2020) (mL/min/1.73m2) 70.98 Glucose (74-106) mg/dL 98 Calcium (8.5-10.1) mg/dL 10.2 H Magnesium (1.8-2.4) mg/dL 2.6 H Total Bilirubin (0.2-1.0) mg/dL 0.3 AST (15-37) U/L 11 L ALT (16-63) U/L 20 Alkaline Phosphatase (46-116) U/L 89 Creatine Kinase (39-308) U/L 42 Troponin I (< or =60) ng/L < 50 Total Protein (6.4-8.2) g/dL 7.2 Albumin (3.4-5.0) g/dL 3.7 TSH (0.36-3.74) uIU/mL 1.33 [place] (0.6-1.2) mmol/l 1.0 Medical Decision Making 58-year-old male presenting with garbled speech, weakness, and confusion upon awaking this morning Acute change from baseline per staff, patient has a state appointed public guardian, Iraida Recio, [phone] GCS 15, alert and oriented x 2 baseline baseline per staff, cranial nerves II through XII intact Negative pronator drift, strength and sensation intact distally to all 4 extremities, 3 out of 5 No abdominal tenderness, cardiac rate rhythm regular, no meningismus, pupils equal round reactive to light and accommodation, his speech is thickened Blood pressure 153/65 [place] level 1, no other acute abnormality, CTA head and neck does not show evidence of acute abnormality, pending MRI brain at this time Pending urinalysis Pending ambulatory trial Discussed case with patient's guardian, Gladis and we will update her regarding official disposition but she is comfortable with the plan to perform ambulatory trial and urinalysis with additional testing at this time with reassessment Will transition care to CHANDRA at 1600 Quality:[facility] Health Related Social Needs: No Data to Display PFSH All Active Problems (Updated 06/12/23 @ 17:10 by DIANE Lenz) Psychosomatic factor in physical condition (Acute) Hx of falling (Acute) Eczema (Acute) Fissures in skin of both feet (Acute) Hyperkeratosis (Acute) Tinea pedis (Acute) Nail dystrophy (Acute) Obesity (Chronic) Bladder distension (Acute) 09/22/20 CT Bronchospasm (Chronic 12/29/15) Pt unable to complete PFTs due to mental status, unclear ?asthma vs. COPD? Anemia (Chronic) Constipation (Chronic) Intellectual disability (Chronic) Also has legal guardian (see Guardianship on Problem List) Bipolar disorder (Chronic) [facility] Schizophrenia (Chronic) [facility] Seborrheic dermatitis of scalp (Chronic 10/17/17) Severe obstructive sleep apnea (Chronic 05/29/17) BIPAP Guardianship (Chronic 06/06/15) Legal Guardian: Yadira Boyle; Act 248: Registered sex offender, cannot be around children & needs 24 hr supervision (see [facility] Information Sheet -- scanned into chart 06/06/2015) Scalp cyst (Acute 03/28/17) IFG (impaired fasting glucose) (Chronic 03/28/17) Hypothyroidism (Acute) Hyperlipidemia (Chronic 06/20/15) 03/2022 labs: 10-year ASCVD risk = 3.4% Eczema of hand (Acute) Medical History SARS-CoV-2 positive (~12/22/21) Disorder of bursae and tendons in shoulder region Surgical History Colonoscopy - IV Sedation (03/13/10) Family History Father Alcohol abuse Arthritis Paternal Uncle Cancer Other Cancer of lung Social History Smoking/Tobacco Use Status: Former Tobacco Use Quit Date: 05/13/94 Smoking risk assessment performed?: Yes Alcohol Intake: never Drug use: Never Substance use type: does not use Adopted: No Caregiver/Support person: Yes (Human Services) Foster care: No Household members: other Details: Lives in [facility] Housing: assisted living facility Number of Children: 0 number of grandchildren: 0 Communication Needs: None Education Level: high school Do you need help understanding health information?: Often current occupation: Disabled Pets and animals: No Sexually active: No Do you think of yourself as: straight/heterosexual Current gender identity: male What is your relationship status?: never How often do you talk on the phone with friends or family?: never How often do you get together with friends or relatives?: never How often do you attend denominational or jewish services?: decline to answer Do you belong to any clubs or organized social groups?: no Panel score (0-1 are the most socially isolated patients): 0 What type of physical activity do you participate in: walking Duration: < 15 minutes/day Frequency: 1-2 times per week Special hilda needs: No Seatbelt use: always Helmet use: Yes Drive intox or ride w/intox box truck driver: No Additional Social history: Unable to assess [place] Sign Out Sign Out Data: Sign Out Comment: pending etoh, utox, urinalysis, vbg, and amb trial Last updated by Suzanna Estes PA at 06/12/23 15:57 Discharge Plan Disposition Patient Disposition: Home Condition: Stable Discharge Details Clinical Impression: Psychosomatic factor in physical condition Primary Care Provider: Sue Fischer ED Provider: Boni Srivastava Home Meds and New Rx's Prescriptions: Continued omega 8-cyt-utf-fish oil [Fish Oil] 1,000 mg (120 mg-180 mg) capsule 1 cap PO TID zinc 15 mg tablet 15 mg PO DAILY fluticasone propion-salmeterol [Advair HFA] 115-21 mcg/actuation HFA aerosol inhaler 2 puff Inhalation BID Qty: 3 3RF lithium carbonate 150 mg capsule 150 mg PO DAILY Rx Instructions: at 8 am per med list dated 02/11/21 [facility] quetiapine 200 mg tablet 200 mg PO DAILY Rx Instructions: 400mg hs and 200 mg hs to total 600mg hs per med list 02/10/21 [facility] clotrimazole-betamethasone 1-0.05 % cream 1 applic topical ONCE Qty: 45 4RF ibuprofen 200 MG capsule 200 mg PO Q6H PRN Multiple Vitamin-Minerals 1 EACH tablet 1 ea PO DAILY Qty: 90 (DME) Space Chamber Plus 1 EACH spacer 1 ea Miscellaneous PRN Qty: 1 Rx Instructions: To be used with inhaler. lorazepam 1 MG tablet 1 mg PO HS 5-hydroxytryptophan (5-HTP) [5-HTP] 100 mg capsule 100 mg PO QAM sodium fluoride-pot nitrate [PreviDent 5000 Enamel Protect] 1.1-5 % paste See Rx Instructions Dental BID Patient Comments: 10/17/17 Taking BID. zn Rx Instructions: 100 ml dental twice a day; tiagabine [Gabitril] 4 mg tablet See Rx Instructions PO QHS Rx Instructions: 4 mg one (tab)8am, 4 mg 1(1 tab) 2pm and 8 mg (2 tabs) at hs NEKHS list 02/11/21 [facility] quetiapine [Seroquel] 400 mg tablet 400 mg PO QHS Rx Instructions: 400mg hs and 200 mg hs to total 600mg hs per med list 02/10/21 [facility] lithium carbonate 300 mg tablet See Rx Instructions PO TID Patient Comments: Rx Instructions: Take 300 mg 8AM, 300 mg 2PM, and 300 mg 8pm po TID; [facility] loxapine succinate 50 mg capsule See Rx Instructions PO as directed Rx Instructions: PO as directed; 1 tab 8AM, 1 tab 2PM and 2 tabs 8 pm ketoconazole 2 % shampoo 1 applic Topical .1-2 times weekly Qty: 360 3RF Rx Instructions: Apply to affected area (scalp) once daily & let sit on skin for 5-10 minutes before washing off. albuterol sulfate [ProAir HFA] 90 mcg/actuation HFA aerosol inhaler 1 - 2 puff Inhalation Q4-6H PRN Qty: 1 3RF Rx Instructions: DISPENSE ALBUTEROL INHALER BRAND COVERED BY INSURANCE vitamin B complex Capsule 1 cap PO DAILY Qty: 90 3RF Rx Instructions: [facility] Dr[facility] Kelley ([facility]) melatonin 5 mg tablet 15 mg PO HS PRN (Reason: sleep) Qty: 90 3RF Rx Instructions: Per Dr. Kelley ([facility]) cholecalciferol (vitamin D3) 50 mcg (2,000 unit) capsule 2,000 unit PO DAILY Qty: 90 3RF Rx Instructions: 03/09/19-[facility] KELLEY [facility] docusate sodium [Colace] 100 mg capsule 300 mg PO DAILY Qty: 270 3RF polyethylene glycol 3350 [Miralax] 17 gram/dose powder 17 g PO BID Qty: 850 3RF omeprazole 20 mg capsule,delayed release(DR/EC) 20 mg PO QAM Qty: 90 3RF Rx Instructions: Take in the morning at least 30 minutes before first meal CPAP inhalation psyllium husk 0.52 gram capsule 1.04 g PO BID Qty: 360 3RF Rx Instructions: Take 2 pills twice daily with a full glass of water urea 39 % cream 1 applic topical .QD to BID Qty: 227 11RF Rx Instructions: Apply to feet, avoid in-between toes. May dispense available strength ranging from 30% to 40% concentration, depending on availability. magnesium 250 mg tablet 250 mg PO TID PRN (Reason: anxiety or pain) Qty: 270 3RF Rx Instructions: Per Dr. Kelley ([facility]) levothyroxine 75 mcg tablet 75 mcg PO QAM Qty: 90 3RF Discharge Instructions Instructions: Bipolar Disorder (ED) Additional Instructions: Wayne was seen in the emergency department today for his reports of possible unstable gait and mildly altered mentation from baseline, he underwent extensive workup including negative CTAs of the brain and neck vessels, CT of the chest, MRI of the brain with negative results, there is no laboratory abnormalities to suggest any infectious or medical encephalopathy at this time, he did eat and drink fluid and ambulated without issue here in the department and wanted to return home for dinner. I suspect there is some psychosomatic elements to his complaints this morning but he appears well, there was no abnormal drugs or alcohol in his system. I spoke with patients' Public Guardian Iraida Recio and she agrees for discharge. Please return to the emergency department for any emergent concerns or altered mentation or neurologic abnormalities beyond baseline. Referrals: Sue Fischer NP [Primary Care Provider] - Discharge Data Discharge Date/Time-TO BE ENTERED AT DEPARTURE: 06/12/23 17:21
--- NOTE | 2023-06-12 15:20 | DI.MRI_ITS ---
Exam(s) MR BRAIN WO EXAM: MR BRAIN WO CLINICAL HISTORY: dysphasia, weakness TECHNIQUE: Multiplanar multisequence MRI of the brain was performed. COMPARISON: CT CT HEAD WO from 05/26/[address] BRAIN NECK CTA from 06/12/2023 FINDINGS: The examination is limited due to patient motion artifact. VENTRICLES AND EXTRA AXIAL SPACES: Normal in size and morphology for the patient's age. MIDLINE SHIFT: None. CEREBRAL PARENCHYMA: No focus of restricted diffusion to suggest acute infarct. No space-occupying le tino identified. There are several areas of increased signal on the T2 and FLAIR images most consiste nt with chronic microvascular ischemic disease. HEMORRHAGE: None. BRAINSTEM/CEREBELLUM: Normal. CALVARIUM: Normal. VISUALIZED PARANASAL SINUSES/MASTOIDS:Clear. [place]: Normal flow void. PITUITARY GLAND: Unremarkable. OTHER FINDINGS: None. IMPRESSION: 1. No evidence of an acute infarct. 2. Findings of chronic microvascular ischemic disease. DATA REPOSITORY:
[2023-06-12 16:11] LABS: Bilirubin Negative (Negative); Blood Negative (Negative); Clarity Cloudy (Clear); Glucose Negative (Negative); Ketones Negative (Negative); Leukocyte Esterase Negative (Negative); Nitrite Negative (Negative); Urobilinogen 0.2 mg/dL (Up to 0.2)
[2023-06-12 16:18] LABS: BE (Venous) 5 mmol/L (-2-3); HCO3 (Venous) 30 mmol/L (23-28); O2 Sat (Venous) 39 %; TCO2 (Venous) 28 mmol/L (24-29); pCO2 (Venous) 55 mmHg (41-51); pH (Venous) 7.35 (7.31-7.41); pO2 (Venous) 23 mmHg
[2023-06-12 16:20] LABS: *AMPHETAMINES SCREEN URINE Negative (Negative); *BARBITURATES SCREEN URINE Negative (Negative); *BENZODIAZEPINES SCREEN URINE Negative (Negative); Cannabinoids THC Negative (Negative); Cocaine Screen,Urine Negative (Negative); METHADONE URINE SCREEN Negative (Negative); OPIATES URINE SCREEN Negative (Negative)
[2023-06-12 16:33] LABS: Tricyclic Antidepressants Positive (Negative)
[2023-06-12 16:41] LABS: Troponin I < 50 ng/L (< or =60)
[2023-06-12 16:42] LABS: ETHANOL BLOOD < 3.0 mg/dL (<10)
--- NOTE | 2023-06-12 17:06 | ED.PROG_ITS ---
Date of service: 06/12/23 Time of Service: 17:06 Medical Decision Making 58-year-old male presents from [facility] with schizophrenia bipolar disorder, intellectual disability, reports from staff of having some abnormal gait and slightly thickened speech from baseline this morning. You underwent extensive workup by Suzanna Estes PA-C who I received the patient in signout from including negative CTAs of the brain neck and chest, negative brain MRI for any stroke, there is no infectious etiology suspected on labs, there is no abnormal drugs in his system or alcohol in his system. At signout there was a couple pending labs including ethyl alcohol and UDS which were normal. After this the only remaining tasks were to trial him with p.o. hydration and nutrition as well as ambulate him, once he had some food he began to perk up and act his baseline per his caregivers from the [facility] and was very engaged and alert without any unstable gait. He stated he wanted to return home and have dinner. I did speak with his public guardian Janelsukh Recio from the [place] [employer] of public guardian's office. She was okay with this disposition, I suspect the patient has some psychosomatic issues as onset this morning I do not find any admittable diagnoses on review of his labs and imaging studies. Please see Suzanna Dugan's complete note for full HPI & exam. Medical Records Medical records reviewed: Yes I reviewed the patient's medical records. Imaging Data Radiologic Study: Attestation: I personally reviewed and interpreted this imaging study as follows: Radiologist's impression: Negative CTA brain and neck, negative CT chest, negative MRI brain Lab Data Lab results reviewed: Yes I reviewed the patient's lab results. Labs: 06/12/23 13:59 Blood Blood Culture - Pending 06/12/23 11:40 Blood Blood Culture - Pending Laboratory Tests Range/Units 06/12/23 06/12/23 06/12/23 11:40 16:00 16:16 WBC (4.4-10.8) 10^3/uL 5.73 RBC (4.36-5.78) 10^6/uL 4.42 Hgb (13.5-17.5) g/dL 13.6 Hct (40.0-50.0) % 41.6 MCV (80-95) fL 94 MCH (27.0-33.0) pg 30.8 MCHC (32.0-36.0) % 32.7 RDW (11.8-14.1) % 13.2 Plt Count (130-400) 10^3/uL 300 MPV (8.0-11.0) fL 9.6 Immature Gran % 0.3 Neutrophils % 64.7 Lymphocytes % 23.6 Monocytes % 8.4 Eosinophils % 2.3 Basophils % 0.7 Nucleated RBC % (0.0-0.3) % 0.0 Absolute Neutrophils (1.2-6.7) 10^3/uL 3.71 Absolute Lymphocytes (1.2-3.4) 10^3/uL 1.35 Absolute Monocytes (0.1-0.8) 10^3/uL 0.48 Absolute Eosinophils (0.0-0.7) 10^3/uL 0.13 Absolute Basophils (0.0-0.2) 10^3/uL 0.04 VBG pH (7.31-7.41) 7.35 VBG pCO2 (41-51) mmHg 55 H VBG pO2 mmHg 23 VBG HCO3 (23-28) mmol/L 30 H VBG Total CO2 (24-29) mmol/L 28 VBG O2 Saturation % 39 VBG Base Excess (-2-3) mmol/L 5 H Sodium (136-145) mmol/L 142 Potassium (3.5-5.1) mmol/L 4.3 Chloride (98-107) mmol/L 106 Carbon Dioxide (21.0-32.0) mmol/L 30.2 Anion Gap (3-11) mmol/L 5.8 BUN (7-18) mg/dL 20 H Creatinine (0.70-1.30) mg/dL 1.2 Est GFR (CKD-EPI 2020) (mL/min/1.73m2) 70.98 Glucose (74-106) mg/dL 98 Calcium (8.5-10.1) mg/dL 10.2 H Magnesium (1.8-2.4) mg/dL 2.6 H Total Bilirubin (0.2-1.0) mg/dL 0.3 AST (15-37) U/L 11 L ALT (16-63) U/L 20 Alkaline Phosphatase (46-116) U/L 89 Creatine Kinase (39-308) U/L 42 Troponin I (< or =60) ng/L < 50 < 50 Total Protein (6.4-8.2) g/dL 7.2 Albumin (3.4-5.0) g/dL 3.7 TSH (0.36-3.74) uIU/mL 1.33 Urine Color (Yellow) Yellow Urine Clarity (Clear) Cloudy Urine pH (5-8) 7.0 Ur Specific [place] (1.005-1.025) 1.010 Urine Protein (Negative) mg/dL Negative Urine Ketones (Negative) mg/dL Negative Urine Blood (Negative) Negative Urine Nitrite (Negative) Negative Urine Bilirubin (Negative) Negative Urine Urobilinogen (Up to 0.2) mg/dL 0.2 Ur Leukocyte Esterase (Negative) Negative Urine Glucose (Negative) mg/dL Negative Urine Opiates Screen (Negative) Negative Urine Methadone Screen (Negative) Negative Ur Barbiturates Screen (Negative) Negative Ur Tricyclics Screen (Negative) Positive A Ur Amphetamines Screen (Negative) Negative U Benzodiazepines Scrn (Negative) Negative [place] (0.6-1.2) mmol/l 1.0 Urine Cocaine Screen (Negative) Negative Ur THC Screen (Negative) Negative Ethyl Alcohol (<10) mg/dL < 3.0 Quality:SDOH Health Related Social Needs: No Data to Display Sign Out Sign Out Data: Sign Out Comment: pending etoh, utox, urinalysis, vbg, and amb trial Last updated by Suzanna Estes PA at 06/12/23 15:57 Discharge Plan Disposition Patient Disposition: Home Condition: Stable Discharge Details Clinical Impression: Psychosomatic factor in physical condition Primary Care Provider: Sue Fischer ED Provider: Boni Srivastava Home Meds and New Rx's Prescriptions: Continued omega 5-zrx-nnc-fish oil [Fish Oil] 1,000 mg (120 mg-180 mg) capsule 1 cap PO TID zinc 15 mg tablet 15 mg PO DAILY fluticasone propion-salmeterol [Advair HFA] 115-21 mcg/actuation HFA aerosol inhaler 2 puff Inhalation BID Qty: 3 3RF lithium carbonate 150 mg capsule 150 mg PO DAILY Rx Instructions: at 8 am per med list dated 02/11/21 [facility] quetiapine 200 mg tablet 200 mg PO DAILY Rx Instructions: 400mg hs and 200 mg hs to total 600mg hs per med list 02/10/21 [facility] clotrimazole-betamethasone 1-0.05 % cream 1 applic topical ONCE Qty: 45 4RF ibuprofen 200 MG capsule 200 mg PO Q6H PRN Multiple Vitamin-Minerals 1 EACH tablet 1 ea PO DAILY Qty: 90 (DME) Space Chamber Plus 1 EACH spacer 1 ea Miscellaneous PRN Qty: 1 Rx Instructions: To be used with inhaler. lorazepam 1 MG tablet 1 mg PO HS 5-hydroxytryptophan (5-HTP) [5-HTP] 100 mg capsule 100 mg PO QAM sodium fluoride-pot nitrate [PreviDent 5000 Enamel Protect] 1.1-5 % paste See Rx Instructions Dental BID Patient Comments: 10/17/17 Taking BID. zn Rx Instructions: 100 ml dental twice a day; tiagabine [Gabitril] 4 mg tablet See Rx Instructions PO QHS Rx Instructions: 4 mg one (tab)8am, 4 mg 1(1 tab) 2pm and 8 mg (2 tabs) at hs NEKHS list 02/11/21 [facility] quetiapine [Seroquel] 400 mg tablet 400 mg PO QHS Rx Instructions: 400mg hs and 200 mg hs to total 600mg hs per med list 02/10/21 [facility] lithium carbonate 300 mg tablet See Rx Instructions PO TID Patient Comments: Rx Instructions: Take 300 mg 8AM, 300 mg 2PM, and 300 mg 8pm po TID; [facility] loxapine succinate 50 mg capsule See Rx Instructions PO as directed Rx Instructions: PO as directed; 1 tab 8AM, 1 tab 2PM and 2 tabs 8 pm ketoconazole 2 % shampoo 1 applic Topical .1-2 times weekly Qty: 360 3RF Rx Instructions: Apply to affected area (scalp) once daily & let sit on skin for 5-10 minutes before washing off. albuterol sulfate [ProAir HFA] 90 mcg/actuation HFA aerosol inhaler 1 - 2 puff Inhalation Q4-6H PRN Qty: 1 3RF Rx Instructions: DISPENSE ALBUTEROL INHALER BRAND COVERED BY INSURANCE vitamin B complex Capsule 1 cap PO DAILY Qty: 90 3RF Rx Instructions: Per Dr. Kelley ([facility]) melatonin 5 mg tablet 15 mg PO HS PRN (Reason: sleep) Qty: 90 3RF Rx Instructions: Per Dr. Kelley ([facility]) cholecalciferol (vitamin D3) 50 mcg (2,000 unit) capsule 2,000 unit PO DAILY Qty: 90 3RF Rx Instructions: 03/09/19-DR KELLEY [facility] docusate sodium [Colace] 100 mg capsule 300 mg PO DAILY Qty: 270 3RF polyethylene glycol 3350 [Miralax] 17 gram/dose powder 17 g PO BID Qty: 850 3RF omeprazole 20 mg capsule,delayed release(DR/EC) 20 mg PO QAM Qty: 90 3RF Rx Instructions: Take in the morning at least 30 minutes before first meal CPAP inhalation psyllium husk 0.52 gram capsule 1.04 g PO BID Qty: 360 3RF Rx Instructions: Take 2 pills twice daily with a full glass of water urea 39 % cream 1 applic topical .QD to BID Qty: 227 11RF Rx Instructions: Apply to feet, avoid in-between toes. May dispense available strength ranging from 30% to 40% concentration, depending on availability. magnesium 250 mg tablet 250 mg PO TID PRN (Reason: anxiety or pain) Qty: 270 3RF Rx Instructions: Per Dr. Kelley ([facility]) levothyroxine 75 mcg tablet 75 mcg PO QAM Qty: 90 3RF Discharge Instructions Instructions: Bipolar Disorder (ED) Additional Instructions: Wayne was seen in the emergency department today for his reports of possible unstable gait and mildly altered mentation from baseline, he underwent extensive workup including negative CTAs of the brain and neck vessels, CT of the chest, MRI of the brain with negative results, there is no laboratory abnormalities to suggest any infectious or medical encephalopathy at this time, he did eat and drink fluid and ambulated without issue here in the department and wanted to return home for dinner. I suspect there is some psychosomatic elements to his complaints this morning but he appears well, there was no abnormal drugs or alcohol in his system. I spoke with patients' Public Guardian Iraida Recio and she agrees for discharge. Please return to the emergency department for any emergent concerns or altered m entation or neurologic abnormalities beyond baseline. Referrals: Sue Fischer GUARD ENTRANCE REGISTRAR [Primary Care Provider] - Discharge Data Discharge Date/Time-TO BE ENTERED AT DEPARTURE: 06/12/23 17:21
== END 2023-06-12 17:21 | disposition home or self-care (01) ==
PROVIDERS: Physician Assistant; Emergency Provider Physician Assistant; PCP Nurse Practitioner Family
DX: R13.10 Dysphagia, unspecified (principal); F45.9 Somatoform disorder, unspecified; F31.9 Bipolar disorder, unspecified; F20.9 Schizophrenia, unspecified; R41.82 Altered mental status, unspecified; Z87.891 Personal history of nicotine dependence
CPT/HCPCS: 00123; 36415; 70496; 70498; 71250; 80053; 80307; 82550; 82805; 82962; 87040; 93005; 99285; 70551; 72125; 80178; 80320; 81003; 83735; 84443; 84484; 85025; 93010; 99284; J3490

== ENCOUNTER → 2023-09-17 05:05 | Outpatient (CLI) | payer MEDICAID, SELFPAY ==
--- NOTE | 2023-09-17 07:45 | DI.US_ITS ---
Exam(s) US RENAL EXAM: US RENAL CLINICAL HISTORY: elevated PVR,monitoring for hydro concerns,BLADDER DISTENSION,N32.89. TECHNIQUE: Kelley scale, color and spectral Doppler were used. COMPARISON: US US RENAL from 10/24/2022 FINDINGS: Renal size in cm: Right: 11.8. Left: 11.2. Echogenicity: Normal. Hydronephrosis: No. Cyst or mass: Small simple cyst in the upper pole of the right kidney. No follow-up is recommended. Nephrolithiasis: No definite nephrolithiasis. No obstructive uropathy. Other findings: Posterior to the urinary bladder there is a well-circumscribed shadowing structure pr esent. Is extrinsic to the urinary bladder. Bladder:Normal. Ureteral jets: Right: Visualized and unremarkable. Left: Visualized and unremarkable. Prevoid vol:711 cc Postvoid vol:438 cc Prostate: 21 cc Renal color flow: Symmetric and within normal limits. IMPRESSION: 1. Large postvoid urinary bladder volume. Prostate gland is within normal limits in size. No intral uminal urinary bladder mass or wall thickening is seen. 2. External well-circumscribed shadowing structure posterior to the urinary bladder. It measures beata roximately 4.3 cm in diameter. A rectal mass or rectal foreign body should be considered. Follow-up with either a plain film of the pelvis or a noncontrast CT scan of the pelvis is recommended. Findi ngs were discussed with Laura Freed on 09/17/2023. Unexpected findings DATA REPOSITORY:
== END ==
PROVIDERS: PCP Nurse Practitioner Family; Visit Provider Nurse Practitioner Gerontology
DX: N32.89 Other specified disorders of bladder (principal)
CPT/HCPCS: 76770

== ENCOUNTER 2023-09-18 05:08 | Outpatient (CLI) | payer MEDICAID, SELFPAY ==
[2023-09-18 10:41] LABS: BUN 17 mg/dL (7-18); CREATININE 1.1 mg/dL (0.70-1.30); Estimated GFR 78.79 (mL/min/1.73m2)
== END 2023-09-18 05:09 | disposition home or self-care (01) ==
LOC: LBO 05:08
PROVIDERS: PCP Nurse Practitioner Family; Visit Provider Nurse Practitioner Gerontology
DX: N32.89 Other specified disorders of bladder (principal)
CPT/HCPCS: 36415; 84520; 82565

== ENCOUNTER → 2023-09-20 01:03 | Outpatient (CLI) | payer MEDICAID, SELFPAY ==
--- NOTE | 2023-09-20 07:35 | DI.CT_ITS ---
Exam(s) CT PELVIC WO EXAM: CT PELVIC WO CLINICAL HISTORY: Rectal mass vs foreign body on renal ultrasound,r93.89,k62.9,shadowing. TECHNIQUE: Imaging Protocol: Axial computed tomography images with coronal and sagittal reformatted images were created and reviewed. CONTRAST MATERIAL: Oral: no COMPARISON: CT CT ABDOMEN PELVIS W from 09/22/2020 CR XR ABDOMEN FLAT UPRIGHT from 05/08/[address] CERVICAL SPINE WO from 06/12/[address] CHEST WO from 06/12/[address] THORACIC SPINE RECONS from 06/12/2023 US US RENAL from 09/17/2023 FINDINGS: Bladder: Urinary bladder abnormally distended. No visible calcification or mass. No gross wall thic kening. Bowel: No evidence of mass or foreign body. There is a large quantity of stool in the rectum as well as sigmoid through visualized ascending colon. Visualized small bowel unremarkable. Similar appear ance to prior exam of 2020. No obstruction or bowel wall thickening. The appendix appears normal w here visualized. Peritoneal cavity: No ascites, collection or mesenteric inflammatory response. Reproductive: Prostate not enlarged. Small right hydrocele Bones: Degenerative disc changes at L4-5. Facet degenerative changes also present. Mild L4-5 spondy lolisthesis. No fracture. Soft tissues: Unremarkable. IMPRESSION: Large quantity of stool in the rectum accounts for the density seen on recent ultrasound. RADIATION DOSE DELIVERED: 357.36mGy.cmTotal DLP DATA REPOSITORY: All CT scans at this facility are submitted to the National Radiology Data Registry (NRDR) Dose Index Registry (DIR) with the [employer] (ACR). RADIATION OPTIMIZATION: All CT scans at this facility use at least one of these dose optimization te chniques: automated exposure control; mA and/or kV adjustment per patient size (includes targeted exa ms where dose is matched to clinical indication); or iterative reconstruction.
== END ==
PROVIDERS: PCP Nurse Practitioner Family; Visit Provider Nurse Practitioner Gerontology
DX: R93.89 Abnormal findings on diagnostic imaging of other specified body structures (principal); K62.9 Disease of anus and rectum, unspecified
CPT/HCPCS: 72192

== ENCOUNTER 2024-02-06 10:58 | Outpatient (CLI) | payer MEDICAID, SELFPAY ==
--- NOTE | 2024-02-06 11:15 | DI.RAD_ITS ---
Exam(s) XR ABDOMEN FLAT UPRIGHT EXAM: 2D digital imaging was performed. CLINICAL HISTORY: R/O obstruction, constipation, K59.00. COMPARISON: CR XR ABDOMEN FLAT UPRIGHT from 05/08/2022 TECHNIQUE: Supine and upright views of the abdomen was performed. Five images were obtained. FINDINGS: LUNG BASES: Clear. BOWEL GAS PATTERN: There is stool throughout the colon suggesting constipation. Air-filled loops of small and large bowel are seen in the central abdomen. This may represent an ileus. FREE AIR: None. CALCIFICATIONS: No radiopaque calcifications. OSSEOUS STRUCTURES: Normal for age. OTHER FINDINGS: None. IMPRESSION: There is a large amount of stool throughout the colon consistent with constipation. DATA REPOSITORY: RADIATION DOSE DELIVERED:
== END 2024-02-06 11:18 ==
LOC: DI 10:58
PROVIDERS: PCP Family Medicine; Visit Provider Family Medicine
DX: K59.00 Constipation, unspecified (principal)
CPT/HCPCS: 74019

== ENCOUNTER 2024-03-03 18:30 | Emergency (ER) | payer MEDICAID, SELFPAY ==
[2024-03-03 18:32] VITALS: BP 161/107; PULSE 79; RESP 18; TEMP 35.6; O2SAT 97
--- NOTE | 2024-03-03 19:00 | DI.CT_ITS ---
Exam(s) CT ABDOMEN PELVIS W EXAM: CT ABDOMEN PELVIS W CLINICAL HISTORY: Hernia, Abd Pain. TECHNIQUE: Imaging Protocol: Axial computed tomography images with coronal and sagittal reformatted images were created and reviewed CONTRAST MATERIAL: Intravenous: Omnipaque-350 100cc Oral: None COMPARISON: CT CT PELVIC WO from 09/20/2023 FINDINGS: VISUALIZED LUNG BASES: No nodules nor pleural effusions evident. ABDOMEN: There is no ascites. LIVER: There are no focal hepatic lesions evident. No dilated intrahepatic ducts. GALLBLADDER/BILIARY: No obvious gallbladder pathology. CBD is not dilated. PANCREAS: No evidence of pancreatic mass nor dilatation of the pancreatic duct. SPLEEN: Spleen is not enlarged. No obvious intrasplenic lesions. Splenic and portal veins are paten t. ADRENALS: There are no significant adrenal masses. KIDNEYS:There benign cortical cysts in both kidneys. No solid renal masses. No calculi nor hydronep hrosis.. URINARY BLADDER: The urinary bladder is grossly distended, measuring 24 cm craniocaudal x 12 cm APx 1 8 cm wide. The ureters are not significantly dilated. There are no calculi nor masses in the urinar y bladder nor intraluminal clots. Prostate size is normal. Seminal vesicles unremarkable. ABDOMINAL AORTA: Abdominal aorta is not enlarged. LYMPH NODES:There is no retroperitoneal nor paraaortic adenopathy. ABDOMINAL WALL: No evidence of significant anterior abdominal wall nor inguinal hernia. GI: There is no evidence of bowel obstruction, free air, nor abscess. PELVIS: GI: No evidence of appendicitis.No evidence of sigmoid diverticulitis.Abundant fecal material noted t hroughout the colon. LYMPH NODES: There is no intrapelvic nor inguinal adenopathy. REPRODUCTIVE: Prostate not enlarged. Seminal vesicles unremarkable URINARY BLADDER: Very severe distension with measurements as above. OSSEOUS: No fractures and no significant osseous lesions. IMPRESSION: 1. The main finding here is severe distension of the urinary bladder which measures 24 cm craniocauda l x 12 cm AP x 10 cm wide. There are no masses nor calculi in the urinary bladder. No intraluminal clots evident. 2. The ureters are not dilated and there is no hydronephrosis of the kidneys. 3. Abundant fecal material noted throughout the colon. No evidence of appendicitis nor diverticuliti s. 4. No ascites. RADIATION DOSE DELIVERED: 756.25mGy.cm Total DLP DATA REPOSITORY: All CT scans at this facility are submitted to the National Radiology Data Registry (NRDR) Dose Index Registry (DIR) with the [employer] (ACR). RADIATION OPTIMIZATION: All CT scans at this facility use at least one of these dose optimization te chniques: automated exposure control; mA and/or kV adjustment per patient size (includes targeted exa ms where dose is matched to clinical indication); or iterative reconstruction.
--- NOTE | 2024-03-03 19:20 | ED.GENADUL_ITS ---
Discharge Plan Disposition Patient Disposition: Home Condition: Stable Discharge Details Clinical Impression: Acute urinary retention, Acute UTI Primary Care Provider: Markie Judd ED Provider: Florecita Bains Home Meds and New Rx's Prescriptions: New cephalexin 500 mg capsule 500 mg PO BID 10 Days Qty: 20 0RF Rx Instructions: Take 1 capsule by mouth twice daily for the next 10 days No Action omega 8-rql-jns-fish oil [Fish Oil] 1,000 mg (120 mg-180 mg) capsule 1 cap PO TID zinc 15 mg tablet 15 mg PO DAILY lithium carbonate 150 mg capsule 150 mg PO DAILY Rx Instructions: at 8 am per med list dated 02/11/21 gc quetiapine 200 mg tablet 200 mg PO DAILY Rx Instructions: 400mg hs and 200 mg hs to total 600mg hs per med list 02/10/21 cgc urea 40 % cream 1 applic topical DAILY Qty: 28.35 3RF magnesium 250 mg tablet 500 mg PO DAILY magnesium citrate Solution 150 ml PO BID PRN (Reason: constipation) Qty: 296 0RF docusate sodium [Colace] 100 mg capsule 200 mg PO DAILY Qty: 270 3RF Multiple Vitamin-Minerals 1 EACH tablet 1 ea PO DAILY Qty: 90 (DME) Space Chamber Plus 1 EACH spacer 1 ea Miscellaneous PRN Qty: 1 Rx Instructions: To be used with inhaler. 5-hydroxytryptophan (5-HTP) [5-HTP] 100 mg capsule 100 mg PO QAM sodium fluoride-pot nitrate [PreviDent 5000 Enamel Protect] 1.1-5 % paste See Rx Instructions Dental BID Patient Comments: 10/17/17 Taking BID. zn Rx Instructions: 100 ml dental twice a day; tiagabine [Gabitril] 4 mg tablet See Rx Instructions PO QHS Rx Instructions: 4 mg one (tab)8am, 4 mg 1(1 tab) 2pm and 8 mg (2 tabs) at hs [facility] list 02/11/21 cgc quetiapine [Seroquel] 400 mg tablet 400 mg PO QHS Rx Instructions: 400mg hs and 200 mg hs to total 600mg hs per med list 02/10/21 cgc lithium carbonate 300 mg tablet See Rx Instructions PO TID Patient Comments: Rx Instructions: Take 300 mg 8AM, 300 mg 2PM, and 300 mg 8pm po TID; [facility] loxapine succinate 50 mg capsule See Rx Instructions PO as directed Rx Instructions: PO as directed; 1 tab 8AM, 1 tab 2PM and 2 tabs 8 pm vitamin B complex Capsule 1 cap PO DAILY Qty: 90 3RF Rx Instructions: Per Dr. Kelley ([facility]) melatonin 5 mg tablet 15 mg PO HS PRN (Reason: sleep) Qty: 90 3RF Rx Instructions: Per Dr. Kelley ([facility]) cholecalciferol (vitamin D3) 50 mcg (2,000 unit) capsule 2,000 unit PO DAILY Qty: 90 3RF Rx Instructions: 03/09/19-DR KELLEY [facility] SLE[facility] urea 39 % cream 1 applic topical .QD to BID Qty: 227 11RF Rx Instructions: Apply to feet, avoid in-between toes. May dispense available strength ranging from 30% to 40% concentration, depending on availability. magnesium 250 mg tablet 250 mg PO TID PRN (Reason: anxiety or pain) Qty: 270 3RF Rx Instructions: Per Dr. Kelley ([facility]) levothyroxine 75 mcg tablet 75 mcg PO QAM Qty: 90 3RF albuterol sulfate [ProAir HFA] 90 mcg/actuation HFA aerosol inhaler 1 - 2 puff Inhalation Q4-6H PRN Qty: 1 3RF Rx Instructions: DISPENSE ALBUTEROL INHALER BRAND COVERED BY INSURANCE fluticasone propion-salmeterol [Advair HFA] 115-21 mcg/actuation HFA aerosol inhaler 2 puff Inhalation BID Qty: 3 3RF ketoconazole 2 % shampoo 1 applic Topical .1-2 times weekly Qty: 360 3RF Rx Instructions: Apply to affected area (scalp) once daily & let sit on skin for 5-10 minutes before washing off. polyethylene glycol 3350 [Miralax] 17 gram/dose powder 8.5 g PO DAILY Qty: 850 3RF omeprazole 20 mg capsule,delayed release(DR/EC) 20 mg PO QAM Qty: 90 3RF Rx Instructions: Take in the morning at least 30 minutes before first meal clotrimazole-betamethasone 1-0.05 % cream 1 applic topical ONCE Qty: 45 4RF psyllium husk 0.52 gram capsule 1.04 g PO BID Qty: 360 3RF Rx Instructions: Take 2 pills twice daily with a full glass of water lorazepam 1 mg tablet 1.5 mg PO HS glycerin (adult) [Fleet Glycerin (Adult)] Suppository 1 supp RI DAILY PRN (Reason: constipation) Qty: 12 0RF Rx Instructions: Take if no result from Mag citrate linaclotide 145 mcg capsule 145 mcg PO DAILY Qty: 90 0RF Discharge Instructions Instructions: How to Care for Your Sau[place]a Catheter, Urinary Retention (DC), Dealing with Urinary Retention from the Drugs You Take, Urinary Tract Infection, Adult ED Additional Instructions: At this time it appears that he has been retaining urine which is not emptying his bladder completely. He had over 3 L of urine noted after catheterization. He is also has evidence of urinary tract infection. Please take the antibiotics with yogurt or a probiotic as directed twice daily. Please follow-up with urology within the next 5 to 7 days regarding the urinary retention. The urinary retention can be caused by some of the medications that he is taking including the antipsychotics. Please discuss this with your primary care provider. No mention of the hernia noted on CT. I do suspect that the majority of his symptoms were related to his severe bladder distention. Follow up with primary care provider in 3-5 days. Return to ED sooner if any worsening or concerns. Referrals: Kostas Munguia MD [ [facility] STAFF PHYSICIAN] - 3 days Markie Judd DO [Primary Care Provider] - 1 week HPI General Mode of arrival: ambulatory . Date/Time Provider Initiated Documentation: 03/03/24 19:10 . Limitations to Documentation: physical limitation . Information obtained by: patient, family (Caregiver), RN notes reviewed and old records reviewed . HPI Narrative: 58-year-old male presents to the ER accompanied by his caregiver with a chief complaint of marginating ventral hernia over the last week and increased pain that is getting worse. Patient was seen at urgent care prior to arrival and re ferred here for further evaluation and imaging. Patient does have a history of intellectual disability and schizophrenia he does have a guardian. Reports increase in size of the hernia and pain. Did have a normal bowel movement today. Denies any nausea vomiting fever chills or any other associated symptoms. Related Data Home Medications ?Medication ?Instructions ?Recorded ?Confirmed multivitamin with minerals 1 ea PO DAILY ##90 06/06/15 03/03/24 (Multiple Vitamin-Minerals tablet) inhalational spacing device (Space ##1 12/14/15 03/03/24 Chamber Plus) omega 8-cbs-roc-fish oil 1,000 mg 1 cap PO TID 05/02/18 03/03/24 (120 mg-180 mg) capsule (Fish Oil) zinc 15 mg tablet 15 mg PO DAILY 05/02/18 03/03/24 5-hydroxytryptophan (5-HTP) 100 mg 100 mg PO QAM 01/01/20 03/03/24 capsule (5-HTP) sodium fluoride 1.1 %-potassium See Rx Instructions dental BID 01/01/20 03/03/24 nitrate 5 % dental paste (PreviDent 5000 Enamel Protect) lithium carbonate 150 mg capsule 150 mg PO DAILY 02/10/21 03/03/24 lithium carbonate 300 mg tablet See Rx Instructions PO TID 02/10/21 03/03/24 loxapine succinate 50 mg capsule See Rx Instructions PO as directed 02/10/21 03/03/24 quetiapine 200 mg tablet 200 mg PO DAILY 02/10/21 03/03/24 quetiapine 400 mg tablet (Seroquel) 400 mg PO QHS 02/10/21 03/03/24 tiagabine 4 mg tablet (Gabitril) See Rx Instructions PO QHS 02/10/21 03/03/24 melatonin 5 mg tablet 15 mg (3 x 5 mg) PO HS PRN sleep 05/24/22 03/03/24 #90 tabs vitamin B complex 1 cap PO DAILY #90 caps 05/24/22 03/03/24 cholecalciferol (vitamin D3) 50 2,000 unit PO DAILY #90 caps 05/30/22 03/03/24 mcg (2,000 unit) capsule urea 39 % topical cream 1 applic topical .QD to BID #227 04/30/23 03/03/24 grams magnesium 250 mg tablet 250 mg PO TID PRN anxiety or pain 06/04/23 03/03/24 #270 tabs levothyroxine 75 mcg tablet 75 mcg PO QAM #90 tab-caps 06/06/23 03/03/24 albuterol sulfate 90 mcg/actuation 1 - 2 puff inhalation Q4-6H PRN ##1 07/26/23 03/03/24 aerosol inhaler (ProAir HFA) fluticasone propionate 115 2 puff inhalation BID ##3 07/26/23 03/03/24 mcg-salmeterol 21 mcg/actuation HFA inhaler (Advair HFA) ketoconazole 2 % shampoo 1 applic topical .1-2 times weekly 09/10/23 03/03/24 #360 mL polyethylene glycol 3350 17 8.5 g PO DAILY constipation #850 11/19/23 03/03/24 gram/dose oral powder (Miralax) grams urea 40 % topical cream 1 applic topical DAILY #28.35 grams 12/11/23 03/03/24 omeprazole 20 mg capsule,delayed 20 mg PO QAM #90 tab-caps 12/17/23 03/03/24 release clotrimazole-betamethasone 1 1 applic topical ONCE #45 grams 01/08/24 03/03/24 %-0.05 % topical cream psyllium husk 0.52 gram capsule 1.04 g (2 x 0.52 gram) PO BID #360 01/16/24 03/03/24 tab-caps docusate sodium 100 mg capsule 200 mg (2 x 100 mg) PO DAILY 02/06/24 03/03/24 (Colace) constipation #270 tab-caps lorazepam 1 mg tablet 1.5 mg PO HS 02/06/24 03/03/24 magnesium 250 mg tablet 500 mg PO DAILY 02/06/24 03/03/24 magnesium citrate 150 ml PO BID PRN constipation 02/06/24 03/03/24 #296 mL glycerin (adult) (Fleet Glycerin 1 supp RI DAILY PRN constipation 02/07/24 03/03/24 (Adult) rectal suppository) #12 ea linaclotide 145 mcg capsule 145 mcg PO DAILY #90 caps 02/11/24 03/03/24 cephalexin 500 mg capsule 500 mg PO BID UTI 10 days #20 caps 03/03/24 Previous Rx's ?Medication ?Instructions ?Recorded melatonin 5 mg tablet 15 mg (3 x 5 mg) PO HS PRN sleep 05/24/22 #90 tabs vitamin B complex 1 cap PO DAILY #90 caps 05/24/22 cholecalciferol (vitamin D3) 50 2,000 unit PO DAILY #90 caps 05/30/22 mcg (2,000 unit) capsule urea 39 % topical cream 1 applic topical .QD to BID #227 04/30/23 grams magnesium 250 mg tablet 250 mg PO TID PRN anxiety or pain 06/04/23 #270 tabs levothyroxine 75 mcg tablet 75 mcg PO QAM #90 tab-caps 06/06/23 albuterol sulfate 90 mcg/actuation 1 - 2 puff inhalation Q4-6H PRN ##1 07/26/23 aerosol inhaler (ProAir HFA) fluticasone propionate 115 2 puff inhalation BID ##3 07/26/23 mcg-salmeterol 21 mcg/actuation HFA inhaler (Advair HFA) ketoconazole 2 % shampoo 1 applic topical .1-2 times weekly 09/10/23 #360 mL polyethylene glycol 3350 17 8.5 g PO DAILY constipation #850 11/19/23 gram/dose oral powder (Miralax) grams urea 40 % topical cream 1 applic topical DAILY #28.35 grams 12/11/23 omeprazole 20 mg capsule,delayed 20 mg PO QAM #90 tab-caps 12/17/23 release clotrimazole-betamethasone 1 1 applic topical ONCE #45 grams 01/08/24 %-0.05 % topical cream psyllium husk 0.52 gram capsule 1.04 g (2 x 0.52 gram) PO BID #360 01/16/24 tab-caps docusate sodium 100 mg capsule 200 mg (2 x 100 mg) PO DAILY 02/06/24 (Colace) constipation #270 tab-caps magnesium citrate 150 ml PO BID PRN constipation 02/06/24 #296 mL glycerin (adult) (Fleet Glycerin 1 supp RI DAILY PRN constipation 02/07/24 (Adult) rectal suppository) #12 ea linaclotide 145 mcg capsule 145 mcg PO DAILY #90 caps 02/11/24 cephalexin 500 mg capsule 500 mg PO BID UTI 10 days #20 caps 03/03/24 Allergies Allergy/AdvReac Type Severity Reaction Status Date / Time acetaminophen (From Tylenol) Allergy Unknown unknown Verified 03/03/24 18:34 chlorpromazine HCl (From Allergy Unknown unknown Verified 03/03/24 18:34 Thorazine) clozapine (From Clozaril) Allergy Unknown unknown Verified 03/03/24 18:34 haloperidol (From Haldol) Allergy Unknown unknown Verified 03/03/24 18:34 haloperidol lactate (From Allergy Unknown unknown Verified 03/03/24 18:34 Haldol) risperidone (From Risperdal) Allergy Unknown unknown Verified 03/03/24 18:34 General Stated Complaint: Abd Prob TEDDY: 3 Review of Systems All systems reviewed & are unremarkable except as noted in HPI and below Gastrointestinal Gastrointestinal: Reports as per HPI and Reports abdominal pain Exam Narrative Exam Narrative: Constitutional: Alert and oriented x3, is at baseline.. Appears stated age. Normal body habitus. Head: Normocephalic, no trauma. Eyes: Pupils PERRL, Red reflex noted, EOM's intact. Eyelids symmetrical without lesions, discharge, or swelling. ENT: Bilateral TM's WNL, External ear normal to inspection, no mastoid TTP, swelling, or erythema, Nasal turbinates WNL, no nasal discharge. Normal dentition, Posterior pharynx WNL, no exudate. Chest: RRR, Normal S1, S2, distal pulses intact. Resp: Lungs clear to auscultation bilaterally, no wheezes, rales, or rhonchi. Abdomen: Appears distended,hypo oactive bowel sounds all 4 quads. Musculoskeletal: Normal gait, Moves all 4 extremities without difficulty. Skin: No suspicious rashes or lesions. Capillary refill less than 2 sec. Neurologic: Cranial nerves II-XII intact. Alert and oriented x 3. Motor: No deficits noted. Sensory: Intact bilaterally all 4 extremities. Hematologic/Lymphatic: No ecchymosis, no lymphadenopathy. GI Inspection: visible herniation (Large ventral hernia noted with straining.) Course Vital Signs Vital signs: Vital Signs Temperature 35.6 C L 03/03/24 18:32 Pulse 79 03/03/24 18:32 Respiratory Rate 18 03/03/24 18:32 Blood Pressure 161/107 H 03/03/24 18:32 Pulse Oximetry 97 03/03/24 18:32 Temperature 35.6 C L 03/03/24 18:32 Temperature Source Temporal Artery Scan 03/03/24 18:32 Pulse 79 03/03/24 18:32 Respiratory Rate 18 03/03/24 18:32 Respiratory Effort Normal, Non-Labored 03/03/24 18:38 Blood Pressure 161/107 H 03/03/24 18:32 Blood Pressure Position Sitting 03/03/24 18:32 Pulse Oximetry 97 03/03/24 18:32 Oxygen Delivery Method Room Air 03/03/24 18:32 Oxygen Flow Rate 0 03/03/24 18:32 Medical Decision Making 58-year-old male presents to the ER accompanied by his caregiver with a chief complaint of marginating ventral hernia over the last week and increased pain that is getting worse. Patient was seen at urgent care prior to arrival and referred here for further evaluation and imaging. Patient does have a history o f intellectual disability and schizophrenia he does have a guardian. Reports increase in size of the hernia and pain. Did have a normal bowel movement today. Denies any nausea vomiting fever chills or any other associated symptoms. CBC CMP lipase lactate CT abdomen pelvis with contrast ordered. Informed by ED staff that patient is requesting some p.o. water. On examining his CT he does have a very enlarged distended bladder. Bladder scan done by his staff which shows over 1000 cc of urine postvoid. Will do an In-N-Out catheter to relieve the bladder. Informed by medical staff coordinator that they got over 3000 cc of urine on an In-N-Out catheter patient is clearly retaining urine. He is on antipsychotic medication such as lithium quetiapine which could be attributing to this. Will consider deseeding home with leg bag and follow-up with urology. He reports decrease in abdominal discomfort after the bladder was drained. Urine also is concerning for UTI. Moderate leukocytes 10-20 WBCs. Culture is pending at this time. Patient to go home with leg bag, instructed on care to patient sby ER staff. Patient demonstrated proper use. Referral placed for urology. This text was generated using [employer] system, please disregard any oddities of phrase or misspellings. Medical Records Medical records reviewed: Yes I reviewed the patient's medical records. Imaging Data Radiologic Study: Imaging: CT Scan Radiologist's impression: COMPARISON: CT PELVIC WO 09/20/2023 7:31 AM FINDINGS: Lungs: Linear bibasilar opacities most consistent with subsegmental atelectasis. Liver: Normal. No mass. Gallbladder and biliary ducts: Normal. No calcified stones. No ductal dilation. Pancreas: The pancreas is unremarkable. Spleen: Normal. No splenomegaly. Adrenal glands: The adrenal glands are unremarkable. Kidneys and ureters: Bilateral renal cysts are present, as well as other subcentimeter hypodensities which are too small to characterize. Stomach and bowel: Moderate stool throughout colon and rectum. Appendix: Normal appendix. Intraperitoneal space: Unremarkable. No free air. No significant fluid collection. Vasculature: Unremarkable. No abdominal aortic aneurysm. Lymph nodes: Unremarkable. No enlarged lymph nodes. Urinary bladder: The urinary bladder is markedly distended. Reproductive: Unremarkable as visualized. Bones/joints: No acute osseous abnormality. Soft tissues: Soft tissues are unremarkable as visualized. Other findings: No evidence of stenosis, occlusion, dissection or aneurysm. IMPRESSION: Markedly distended urinary bladder. Lab Data Lab results reviewed: Yes I reviewed the patient's lab results. Labs: 03/03/24 20:29 Urine - Reflex from Ua Urine Culture - Pending Laboratory Tests Range/Units 03/03/24 03/03/24 03/03/24 19:12 19:50 20:29 WBC (4.4-10.8) 10^3/uL 7.43 RBC (4.36-5.78) 10^6/uL 4.38 Hgb (13.5-17.5) g/dL 13.4 L Hct (40.0-50.0) % 40.8 MCV (80-95) fL 93 MCH (27.0-33.0) pg 30.6 MCHC (32.0-36.0) % 32.8 RDW (11.8-14.1) % 12.9 Plt Count (130-400) 10^3/uL 299 MPV (8.0-11.0) fL 8.6 Immature Gran % % 0.4 Neutrophils % % 67.1 Lymphocytes % % 21.5 Monocytes % % 8.5 Eosinophils % % 2.0 Basophils % % 0.5 Nucleated RBC % (0.0-0.3) % 0.0 Absolute Neutrophils (1.2-6.7) 10^3/uL 4.98 Absolute Lymphocytes (1.2-3.4) 10^3/uL 1.60 Absolute Monocytes (0.1-0.8) 10^3/uL 0.63 Absolute Eosinophils (0.0-0.7) 10^3/uL 0.15 Absolute Basophils (0.0-0.2) 10^3/uL 0.04 VBG Lactate (0.6-1.4) mmol/L 1.1 Sodium (136-145) mmol/L 141 Potassium (3.5-5.1) mmol/L 4.0 Chloride (98-107) mmol/L 105 Carbon Dioxide (21.0-32.0) mmol/L 30.3 Anion Gap (3-11) mmol/L 5.7 BUN (7-18) mg/dL 15 Creatinine (0.70-1.30) mg/dL 1.1 Est GFR (CKD-EPI 2020) (mL/min/1.73m2) 78.79 Glucose (74-106) mg/dL 107 H Calcium (8.5-10.1) mg/dL 10.2 H Magnesium (1.8-2.4) mg/dL 2.4 Total Bilirubin (0.2-1.0) mg/dL 0.28 AST (15-37) U/L 13 L ALT (16-63) U/L 21 Alkaline Phosphatase (46-116) U/L 112 Total Protein (6.4-8.2) g/dL 7.4 Albumin (3.4-5.0) g/dL 3.7 Lipase Cancelled 62 Urine Color (Yellow) Yellow Urine Clarity (Clear) Clear Urine pH (5-8) 7.5 Ur Specific [place] (1.005-1.025) 1.015 Urine Protein (Neg-Trace) mg/dL Negative Urine Ketones (Negative) mg/dL Negative Urine Blood (Negative) Negative Urine Nitrite (Negative) Negative Urine Bilirubin (Negative) Negative Urine Urobilinogen (Up to 0.2) mg/dL 0.2 Ur Leukocyte Esterase (Negative) Moderate H Urine RBC (0-2) HPF 0-2 Urine WBC (0-5) HPF 10-20 H Ur Epithelial Cells (Negative) HPF Rare Urine Crystals (Negative) HPF Negative Urine Bacteria (Negative) HPF Moderate Urine Casts (Negative) LPF Negative Urine Mucus (Negative) Negative Ur Culture Indicated? Yes Urine Glucose (Negative) mg/dL Negative Quality:SDOH Health Related Social Needs: No Data to Display PFSH All Active Problems (Updated 03/03/24 @ 21:18 by Florecita Bains NP) Acute UTI (Acute) Acute urinary retention (Acute) Abdominal wall hernia (Acute) Periodic limb movement disorder (PLMD) (Acute) Dr Rocky Kelley - 01/16/2024 - Consider lab evaluation and pharmacologic Tx Eczema (Acute) Fissures in skin of both feet (Acute) Hyperkeratosis (Acute) Tinea pedis (Acute) Nail dystrophy (Acute) Obesity (Chronic) Bladder distension (Acute) 09/22/20 CT Bronchospasm (Chronic 12/29/15) Pt unable to complete PFTs due to mental status, unclear ?asthma vs. COPD? Anemia (Chronic) Constipation (Chronic) Intellectual disability (Chronic) Also has legal guardian (see Guardianship on Problem List) Bipolar disorder (Chronic) [facility] Psychiatry Schizophrenia (Chronic) [facility] Psychiatry Seborrheic dermatitis of scalp (Chronic 10/17/17) Severe obstructive sleep apnea (Chronic 05/29/17) Uses CPAP - difficulty in using mask 12/23/23 - Considering Inspire device, pending testing Guardianship (Chronic 06/06/15) Legal Guardian: Yadira Boyle; Act 248: Registered sex offender, cannot be around children & needs 24 hr supervision (see [facility] Information Sheet -- scanned into chart 06/06/2015) Scalp cyst (Acute 03/28/17) IFG (impaired fasting glucose) (Chronic 03/28/17) Hypothyroidism (Acute) Hyperlipidemia (Chronic 06/20/15) 03/2022 labs: 10-year ASCVD risk = 3.4% Eczema of hand (Acute) Medical History SARS-CoV-2 positive (~12/22/21) Disorder of bursae and tendons in shoulder region Surgical History Colonoscopy - IV Sedation (03/13/10) Family History Father Alcohol abuse Arthritis Paternal Uncle Cancer Other Cancer of lung Social History Smoking/Tobacco Use Status: Former Tobacco Use Quit Date: 05/13/94 Smoking risk assessment performed?: Yes Alcohol Intake: never Drug use: Never Substance use type: does not use Adopted: No Caregiver/Support person: Yes (Human Services) Foster care: No Household members: other Details: Lives in [facility] detention Housing: assisted living facility Number of Children: 0 number of grandchildren: 0 Communication Needs: None Education Level: high school Do you need help understanding health information?: Often current occupation: Disabled Pets and animals: No Sexually active: No Do you think of yourself as: straight/heterosexual Current gender identity: male What is your relationship status?: never How often do you talk on the phone with friends or family?: never How often do you get together with friends or relatives?: never How often do you attend presybeterian or christian services?: decline to answer Do you belong to any clubs or organized social groups?: no Panel score (0-1 are the most socially isolated patients): 0 What type of physical activity do you participate in: walking Duration: < 15 minutes/day Frequency: 1-2 times per week Special hilda needs: No Seatbelt use: always Helmet use: Yes Drive intox or ride w/intox driver wheelchair: No Additional Social history: [facility]
[2024-03-03 19:52] LABS: Lactate 1.1 mmol/L (0.6-1.4)
[2024-03-03 19:53] LABS: Abs Immature Grans 0.03 10^3/uL (0.0-0.06); Absolute Basophil Count 0.04 10^3/uL (0.0-0.2); Absolute Eosinophil Count 0.15 10^3/uL (0.0-0.7); Absolute Monocyte Count 0.63 10^3/uL (0.1-0.8); Absolute Neutrophil Count 4.98 10^3/uL (1.2-6.7); Basophils % 0.5 %; HCT 40.8 % (40.0-50.0); HGB 13.4 g/dL (13.5-17.5); Immature Grans % 0.4 %; Lymphocytes % 21.5 %; MCH 30.6 pg (27.0-33.0); MCHC 32.8 % (32.0-36.0); MCV 93 fL (80-95); MPV 8.6 fL (8.0-11.0); Monocytes % 8.5 %; Neutrophils % 67.1 %; Platelet Count 299 10^3/uL (130-400); RBC 4.38 10^6/uL (4.36-5.78); RDW 12.9 % (11.8-14.1); RDW-SD 44.5 fL; WBC 7.43 10^3/uL (4.4-10.8)
[2024-03-03 20:03] VITALS: BP 160/90; PULSE 80; RESP 20; TEMP 35.6; O2SAT 95
[2024-03-03 20:09] LABS: ALT 21 U/L (16-63); AST 13 U/L (15-37); Albumin 3.7 g/dL (3.4-5.0); Alkaline Phosphatase 112 U/L (46-116); Anion Gap 5.7 mmol/L (3-11); BUN 15 mg/dL (7-18); Bilirubin, Total 0.28 mg/dL (0.2-1.0); CO2 30.3 mmol/L (21.0-32.0); CREATININE 1.1 mg/dL (0.70-1.30); Calcium 10.2 mg/dL (8.5-10.1); Chloride 105 mmol/L (98-107); Estimated GFR 78.79 (mL/min/1.73m2); Glucose 107 mg/dL (74-106); Lipase 62 U/L (16-77); Magnesium 2.4 mg/dL (1.8-2.4); Sodium 141 mmol/L (136-145); Total Protein 7.4 g/dL (6.4-8.2)
[2024-03-03] MEDS: Omnipaque 350 MG/ML 100 ML BTL 85 ML IJ (20:25)
[2024-03-03] MEDS: Normal Saline - Diluent 50 ML VIAL IJ (20:25)
[2024-03-03 20:51] LABS: Bilirubin Negative (Negative); Blood Negative (Negative); Clarity Clear (Clear); Glucose Negative (Negative); Ketones Negative (Negative); Leukocyte Esterase Moderate (Negative); Nitrite Negative (Negative); Specific Gravity 1.015 (1.005-1.025); Urobilinogen 0.2 mg/dL (Up to 0.2); pH 7.5 (5-8)
[2024-03-03 20:59] LABS: Bacteria Moderate HPF (Negative); C & S Indicated? Yes; Casts Negative LPF (Negative); Crystals Negative HPF (Negative); Epithelial Cells Rare HPF (Negative); Mucus Negative (Negative); RBC 0-2 HPF (0-2)
--- NOTE | 2024-03-03 21:13 | DI.VRAD_ITS ---
PROCEDURE INFORMATION: Exam: CT Abdomen And Pelvis With Contrast Exam date and time: 03/03/2024 8:13 PM Age: 58 years old Clinical indication: Other: Hernia, abd pain TECHNIQUE: Imaging protocol: Computed tomography of the abdomen and pelvis with contrast. Contrast material: OMNIPAQUE; Contrast volume: 85 ml; Contrast route: INTRAVENOUS (IV); COMPARISON: CT PELVIC WO 09/20/2023 7:31 AM FINDINGS: Lungs: Linear bibasilar opacities most consistent with subsegmental atelectasis. Liver: Normal. No mass. Gallbladder and biliary ducts: Normal. No calcified stones. No ductal dilation. Pancreas: The pancreas is unremarkable. Spleen: Normal. No splenomegaly. Adrenal glands: The adrenal glands are unremarkable. Kidneys and ureters: Bilateral renal cysts are present, as well as other subcentimeter hypodensities which are too small to characterize. Stomach and bowel: Moderate stool throughout colon and rectum. Appendix: Normal appendix. Intraperitoneal space: Unremarkable. No free air. No significant fluid collection. Vasculature: Unremarkable. No abdominal aortic aneurysm. Lymph nodes: Unremarkable. No enlarged lymph nodes. Urinary bladder: The urinary bladder is markedly distended. Reproductive: Unremarkable as visualized. Bones/joints: No acute osseous abnormality. Soft tissues: Soft tissues are unremarkable as visualized. Other findings: No evidence of stenosis, occlusion, dissection or aneurysm. IMPRESSION: Markedly distended urinary bladder. Dictated and Authenticated by: Stella Malcolm MD. Ordering:ANTON Bernabe MD
[2024-03-03] MEDS: Lidocaine 2% Jelly 6 ML SYR (21:35)
[2024-03-03] MEDS: Cephalexin 500 MG CAP, 2 CAPS/BTL PO (21:54)
[2024-03-03] MEDS: Cephalexin 500 MG CAP PO (21:54)
--- NOTE | 2024-03-03 21:54 | NUR.NOTE ---
pt sent home with indwelling catheter and leg bag, teaching provided on how to empty catheter. staff at bedside stated that they are not to empty the catheter. Pt was able to demonstrate emptying his catheter with ease. pt will need further education and reinforcement on when to empty his catheter. Staff aware. Guardian aware at this time.
== END 2024-03-03 21:56 | disposition home or self-care (01) ==
PROVIDERS: Emergency Provider Registered Nurse Emergency; PCP Family Medicine
DX: R10.9 Unspecified abdominal pain (principal); R33.9 Retention of urine, unspecified; N39.0 Urinary tract infection, site not specified; K43.9 Ventral hernia without obstruction or gangrene; E78.5 Hyperlipidemia, unspecified; Z87.891 Personal history of nicotine dependence
CPT/HCPCS: 80053; 83690; 87077; 99285; 74177; 81003; 81015; 83605; 83735; 85025; 87086; 87186; 99284; J3490

== ENCOUNTER 2024-03-25 01:55 | Outpatient (CLI) | payer MEDICAID, SELFPAY ==
[2024-03-25 10:29] LABS: BUN 13 mg/dL (7-18); CREATININE 1.3 mg/dL (0.70-1.30); Estimated GFR 64.47 (mL/min/1.73m2)
== END 2024-03-25 01:56 | disposition home or self-care (01) ==
LOC: LBO 01:56
PROVIDERS: PCP Family Medicine; Visit Provider Nurse Practitioner Gerontology
DX: R33.9 Retention of urine, unspecified (principal); N32.89 Other specified disorders of bladder
CPT/HCPCS: 36415; 84520; 82565

== ENCOUNTER 2024-04-04 15:45 | Outpatient (REF) | payer MEDICAID, SELFPAY ==
[2024-04-04 16:04] LABS: Bilirubin Negative (Negative); Blood Trace-intact (Negative); Clarity Sl Cloudy (Clear); Glucose Negative (Negative); Ketones Negative (Negative); Leukocyte Esterase Large (Negative); Nitrite Negative (Negative); Urobilinogen 0.2 mg/dL (Up to 0.2)
[2024-04-04 16:18] LABS: C & S Indicated? C&S Done As Ordered; WBC >50 HPF (0-5)
== END 2024-04-04 15:46 | disposition home or self-care (01) ==
LOC: LBN 15:45
PROVIDERS: PCP Family Medicine; Visit Provider Nurse Practitioner Family
DX: N39.0 Urinary tract infection, site not specified (principal)
CPT/HCPCS: 81003; 81015; 87086

== ENCOUNTER 2024-04-06 10:24 | Emergency (ER) | payer MEDICAID, SELFPAY ==
[2024-04-06 10:28] VITALS: BP 151/73; PULSE 68; RESP 16; TEMP 36.6; O2SAT 97
[2024-04-06 10:30] VITALS: BP 153/68; PULSE 66; RESP 16; TEMP 36.6; O2SAT 98
--- NOTE | 2024-04-06 11:02 | ED.GENADUL_ITS ---
Discharge Plan Disposition Patient Disposition: Home Condition: Stable Discharge Details Clinical Impression: Dysuria Primary Care Provider: Markie Judd ED Provider: Bobo Kuo Home Meds and New Rx's Prescriptions: Continued zinc 15 mg tablet 15 mg PO DAILY lithium carbonate 150 mg capsule 150 mg PO DAILY Rx Instructions: at 8 am per med list dated 02/11/21 gc quetiapine 200 mg tablet 200 mg PO DAILY Rx Instructions: 400mg hs and 200 mg hs to total 600mg hs per med list 02/10/21 [facility] urea 40 % cream 1 applic topical DAILY Qty: 28.35 3RF tamsulosin 0.4 mg capsule 0.4 mg PO DAILY Qty: 30 0RF lidocaine HCl 2 % jelly in applicator 1 applic topical BID-QID PRN (Reason: pain) Qty: 250 0RF cefpodoxime 200 mg tablet 200 mg PO BID Qty: 14 0RF Rx Instructions: must administer with a meal/food magnesium 250 mg tablet 500 mg PO DAILY linaclotide 145 mcg capsule 145 mcg PO DAILY Qty: 90 3RF magnesium citrate Solution 150 ml PO BID PRN (Reason: constipation) Qty: 296 0RF omega 4-typ-zzr-fish oil [Fish Oil] 1,000 (120-180) mg capsule 1 cap PO DAILY Qty: 90 0RF senna 8.6 mg capsule 8.6 mg PO BID Qty: 60 12RF Multiple Vitamin-Minerals 1 EACH tablet 1 ea PO DAILY Qty: 90 (DME) Space Chamber Plus 1 EACH spacer 1 ea Miscellaneous PRN Qty: 1 Rx Instructions: To be used with inhaler. 5-hydroxytryptophan (5-HTP) [5-HTP] 100 mg capsule 100 mg PO QAM tiagabine [Gabitril] 4 mg tablet See Rx Instructions PO QHS Rx Instructions: 4 mg one (tab)8am, 4 mg 1(1 tab) 2pm and 8 mg (2 tabs) at hs [facility] list 02/11/21 [facility] quetiapine [Seroquel] 400 mg tablet 400 mg PO QHS Rx Instructions: 400mg hs and 200 mg hs to total 600mg hs per med list 02/10/21 cgc lithium carbonate 300 mg tablet See Rx Instructions PO TID Patient Comments: Rx Instructions: Take 300 mg 8AM, 300 mg 2PM, and 300 mg 8pm po TID; [facility] loxapine succinate 50 mg capsule See Rx Instructions PO as directed Rx Instructions: PO as directed; 1 tab 8AM, 1 tab 2PM and 2 tabs 8 pm vitamin B complex Capsule 1 cap PO DAILY Qty: 90 3RF Rx Instructions: Per Dr. Kelley ([facility]) melatonin 5 mg tablet 15 mg PO HS PRN (Reason: sleep) Qty: 90 3RF Rx Instructions: Per Dr. Kelley ([facility]) cholecalciferol (vitamin D3) 50 mcg (2,000 unit) capsule 2,000 unit PO DAILY Qty: 90 3RF Rx Instructions: 03/09/19-DR KELLEY [facility] urea 39 % cream 1 applic topical .QD to BID Qty: 227 11RF Rx Instructions: Apply to feet, avoid in-between toes. May dispense available strength ranging from 30% to 40% concentration, depending on availability. magnesium 250 mg tablet 250 mg PO TID PRN (Reason: anxiety or pain) Qty: 270 3RF Rx Instructions: Per Dr. Kelley ([facility]) levothyroxine 75 mcg tablet 75 mcg PO QAM Qty: 90 3RF albuterol sulfate [ProAir HFA] 90 mcg/actuation HFA aerosol inhaler 1 - 2 puff Inhalation Q4-6H PRN Qty: 1 3RF Rx Instructions: DISPENSE ALBUTEROL INHALER BRAND COVERED BY INSURANCE fluticasone propion-salmeterol [Advair HFA] 115-21 mcg/actuation HFA aerosol inhaler 2 puff Inhalation BID Qty: 3 3RF ketoconazole 2 % shampoo 1 applic Topical .1-2 times weekly Qty: 360 3RF Rx Instructions: Apply to affected area (scalp) once daily & let sit on skin for 5-10 minutes before washing off. omeprazole 20 mg capsule,delayed release(DR/EC) 20 mg PO QAM Qty: 90 3RF Rx Instructions: Take in the morning at least 30 minutes before first meal psyllium husk 0.52 gram capsule 1.04 g PO BID Qty: 360 3RF Rx Instructions: Take 2 pills twice daily with a full glass of water lorazepam 1 mg tablet 1.5 mg PO HS Patient Comments: took 0.5mg HUSKER OPERATOR glycerin (adult) [Fleet Glycerin (Adult)] Suppository 1 supp [place] DAILY PRN (Reason: constipation) Qty: 12 0RF Rx Instructions: Take if no result from Mag citrate polyethylene glycol 3350 [Miralax] 17 gram/dose powder 8.5 g PO DAILY Qty: 850 3RF Rx Instructions: May give an extra dose daily prn simethicone 125 mg capsule 125 mg PO DAILY Qty: 30 0RF Discharge Instructions Instructions: Urinary Tract Infection, Adult ED Additional Instructions: Please continue to take the antibiotic as prescribed. Please follow-up with your urologist. Please contact your primary care physician to arrange follow-up. Return to the ER immediately for any worsening or new concerning symptoms. Referrals: Kostas Munguia MD [ [facility] ST[facility]FF [facility]YSICIAN] - Markie Judd DO [Primary Care Provider] - [facility] General Mode of arrival: ambulatory . Date/Time Provider Initiated Documentation: 04/06/24 10:42 . Limitations to Documentation: no limitations . Information obtained by: patient . HPI Narrative: 58yo male with multiple medical problems including recent urinary retention, diagnosed with urinary tract infection 2 days ago at [facility], started on cefpodoxime, presents today with chief complaint of difficulty urinating. Patient notes continued intermittent dysuria. He had a Sauceda catheter that was removed earlier this month. No urinary output since last night. His caretakers are concerned that he may have urinary retention. He does note at this time he is able to urinate. Related Data Home Medications ?Medication ?Instructions ?Recorded ?Confirmed multivitamin with minerals 1 ea PO DAILY ##90 06/06/15 04/06/24 (Multiple Vitamin-Minerals tablet) inhalational spacing device (Space ##1 12/14/15 04/06/24 Chamber Plus) zinc 15 mg tablet 15 mg PO DAILY 05/02/18 04/06/24 5-hydroxytryptophan (5-HTP) 100 mg 100 mg PO QAM 01/01/20 04/06/24 capsule (5-HTP) lithium carbonate 150 mg capsule 150 mg PO DAILY 02/10/21 04/06/24 lithium carbonate 300 mg tablet See Rx Instructions PO TID 02/10/21 04/06/24 loxapine succinate 50 mg capsule See Rx Instructions PO as directed 02/10/21 04/06/24 quetiapine 200 mg tablet 200 mg PO DAILY 02/10/21 04/06/24 quetiapine 400 mg tablet (Seroquel) 400 mg PO QHS 02/10/21 04/06/24 tiagabine 4 mg tablet (Gabitril) See Rx Instructions PO QHS 02/10/21 04/06/24 melatonin 5 mg tablet 15 mg (3 x 5 mg) PO HS PRN sleep 05/24/22 04/06/24 #90 tabs vitamin B complex 1 cap PO DAILY #90 caps 05/24/22 04/06/24 cholecalciferol (vitamin D3) 50 2,000 unit PO DAILY #90 caps 05/30/22 04/06/24 mcg (2,000 unit) capsule urea 39 % topical cream 1 applic topical .QD to BID #227 04/30/23 04/06/24 grams magnesium 250 mg tablet 250 mg PO TID PRN anxiety or pain 06/04/23 04/06/24 #270 tabs levothyroxine 75 mcg tablet 75 mcg PO QAM #90 tab-caps 06/06/23 04/06/24 albuterol sulfate 90 mcg/actuation 1 - 2 puff inhalation Q4-6H PRN ##1 07/26/23 04/06/24 aerosol inhaler (ProAir HFA) fluticasone propionate 115 2 puff inhalation BID ##3 07/26/23 04/06/24 mcg-salmeterol 21 mcg/actuation HFA inhaler (Advair HFA) ketoconazole 2 % shampoo 1 applic topical .1-2 times weekly 09/10/23 04/06/24 #360 mL urea 40 % topical cream 1 applic topical DAILY #28.35 grams 12/11/23 04/06/24 omeprazole 20 mg capsule,delayed 20 mg PO QAM #90 tab-caps 12/17/23 04/06/24 release psyllium husk 0.52 gram capsule 1.04 g (2 x 0.52 gram) PO BID #360 01/16/24 04/06/24 tab-caps lorazepam 1 mg tablet 1.5 mg PO HS 02/06/24 04/06/24 magnesium 250 mg tablet 500 mg PO DAILY 02/06/24 04/06/24 glycerin (adult) (Fleet Glycerin 1 supp NH DAILY PRN constipation 02/07/24 04/06/24 (Adult) rectal suppository) #12 ea polyethylene glycol 3350 17 8.5 g PO DAILY constipation #850 03/06/24 04/06/24 gram/dose oral powder (Miralax) grams lidocaine HCl 2 % mucosal jelly in 1 applic topical BID-QID PRN pain 03/09/24 04/06/24 applicator #250 mL tamsulosin 0.4 mg capsule 0.4 mg PO DAILY #30 caps 03/09/24 04/06/24 linaclotide 145 mcg capsule 145 mcg PO DAILY #90 caps 03/24/24 04/06/24 magnesium citrate 150 ml PO BID PRN constipation 03/24/24 04/06/24 #296 mL omega 9-ndp-mft-fish oil 1,000 mg 1 cap PO DAILY #90 caps 03/24/24 04/06/24 (120 mg-180 mg) capsule (Fish Oil) sennosides 8.6 mg capsule (senna) 8.6 mg PO BID constipation #60 caps 03/26/24 04/06/24 simethicone 125 mg capsule 125 mg PO DAILY #30 caps 03/27/24 04/06/24 cefpodoxime 200 mg tablet 200 mg PO BID #14 tabs 04/04/24 04/06/24 Previous Rx's ?Medication ?Instructions ?Recorded melatonin 5 mg tablet 15 mg (3 x 5 mg) PO HS PRN sleep 05/24/22 #90 tabs vitamin B complex 1 cap PO DAILY #90 caps 05/24/22 cholecalciferol (vitamin D3) 50 2,000 unit PO DAILY #90 caps 05/30/22 mcg (2,000 unit) capsule urea 39 % topical cream 1 applic topical .QD to BID #227 04/30/23 grams magnesium 250 mg tablet 250 mg PO TID PRN anxiety or pain 06/04/23 #270 tabs levothyroxine 75 mcg tablet 75 mcg PO QAM #90 tab-caps 06/06/23 albuterol sulfate 90 mcg/actuation 1 - 2 puff inhalation Q4-6H PRN ##1 07/26/23 aerosol inhaler (ProAir HFA) fluticasone propionate 115 2 puff inhalation BID ##3 07/26/23 mcg-salmeterol 21 mcg/actuation HFA inhaler (Advair HFA) ketoconazole 2 % shampoo 1 applic topical .1-2 times weekly 09/10/23 #360 mL urea 40 % topical cream 1 applic topical DAILY #28.35 grams 12/11/23 omeprazole 20 mg capsule,delayed 20 mg PO QAM #90 tab-caps 12/17/23 release psyllium husk 0.52 gram capsule 1.04 g (2 x 0.52 gram) PO BID #360 01/16/24 tab-caps glycerin (adult) (Fleet Glycerin 1 supp NH DAILY PRN constipation 02/07/24 (Adult) rectal suppository) #12 ea polyethylene glycol 3350 17 8.5 g PO DAILY constipation #850 03/06/24 gram/dose oral powder (Miralax) grams lidocaine HCl 2 % mucosal jelly in 1 applic topical BID-QID PRN pain 03/09/24 applicator #250 mL tamsulosin 0.4 mg capsule 0.4 mg PO DAILY #30 caps 03/09/24 linaclotide 145 mcg capsule 145 mcg PO DAILY #90 caps 03/24/24 magnesium citrate 150 ml PO BID PRN constipation 03/24/24 #296 mL omega 2-fvf-ovi-fish oil 1,000 mg 1 cap PO DAILY #90 caps 03/24/24 (120 mg-180 mg) capsule (Fish Oil) sennosides 8.6 mg capsule (senna) 8.6 mg PO BID constipation #60 caps 03/26/24 simethicone 125 mg capsule 125 mg PO DAILY #30 caps 03/27/24 cefpodoxime 200 mg tablet 200 mg PO BID #14 tabs 04/04/24 Allergies Allergy/AdvReac Type Severity Reaction Status Date / Time acetaminophen (From Tylenol) Allergy Unknown unknown Verified 04/06/24 10:27 chlorpromazine HCl (From Allergy Unknown unknown Verified 04/06/24 10:27 Thorazine) clozapine (From Clozaril) Allergy Unknown unknown Verified 04/06/24 10:27 haloperidol (From Haldol) Allergy Unknown unknown Verified 04/06/24 10:27 haloperidol lactate (From Allergy Unknown unknown Verified 04/06/24 10:27 Haldol) risperidone (From Risperdal) Allergy Unknown unknown Verified 04/06/24 10:27 General Stated Complaint: Urinary TEDDY: 3 Review of Systems Constitutional Constitutional: Denies fever(s) Gastrointestinal Gastrointestinal: Denies abdominal pain Genitourinary Genitourinary: Reports dysuria Exam Const General: cooperative and no acute distress HENMT Mouth: moist mucous membranes Eyes Conjunctivae: normal conjunctivae Sclera: normal sclerae Neck Neck: trachea midline and supple Resp Auscultation: clear to auscultation bilaterally, no rales, no rhonchi and no wheezes Cardio Rate: regular rate and not tachycardic Rhythm: regular rhythm GI Palpation: soft, not firm, no guarding, no masses, not rigid and nontender Skin General skin exam: no rashes or lesions noted Neuro General: patient alert, patient awake and tone normal Course Vital Signs Vital signs: Vital Signs Temperature 36.6 C 04/06/24 10:28 Pulse 68 04/06/24 10:28 Respiratory Rate 16 04/06/24 10:28 Blood Pressure 151/73 H 04/06/24 10:28 Pulse Oximetry 97 04/06/24 10:28 Temperature 36.6 C 04/06/24 10:30 Temperature Source Temporal Artery Scan 04/06/24 10:30 Pulse 66 04/06/24 10:30 Respiratory Rate 16 04/06/24 10:30 Respiratory Effort Normal, Non-Labored 04/06/24 10:30 Blood Pressure 153/68 H 04/06/24 10:30 Blood Pressure Position Sitting 04/06/24 10:30 Pulse Oximetry 98 04/06/24 10:30 Oxygen Delivery Method Room Air 04/06/24 10:30 Oxygen Flow Rate 0 04/06/24 10:28 Pain Level 0 04/06/24 10:36 Comment did point to suprapubic area. 04/06/24 10:30 Medical Decision Making 58-year-old male with multimedical problems including urinary retention recently treated with Sauceda catheterization earlier this month, diagnosed with urinary tract infection at [facility] on 04/04/2024, had greater than 50 WBCs, negative nitrate, positive leukocyte esterase in his urinalysis during that visit. He was started on cefpodoxime which she has been taking as prescribed in the past few days. Patient is here today with no urinary output per his scientific illustrator since last night. Concern for urinary retention. Abdominal exam benign. General exam benign. I reviewed chart and urine culture from 04/04/2024 with no growth. Bladder scan was performed by nursing and patient had 175 mL of urine in his bladder. Patient drank fluids andt was able to go to the bathroom and void greater than 500 mL of urine. No concern for urinary retention at this time. I will send repeat urinalysis and have him follow-up with his urologist. He was instructed to continue take antibiotic as prescribed. Usual customary discharge instructions were reviewed. Quality:SDOH Health Related Social Needs: No Data to Display PFSH All Active Problems (Updated 04/06/24 @ 11:03 by Bobo Kuo MD) Dysuria (Acute) Rectus diastasis (Acute) Excessive gas (Acute) Periodic limb movement disorder (PLMD) (Acute) Dr Rocky Kelley - 01/16/2024 - Consider lab evaluation and pharmacologic Tx Eczema (Acute) Fissures in skin of both feet (Acute) Hyperkeratosis (Acute) Tinea pedis (Acute) Nail dystrophy (Acute) Obesity (Chronic) Bladder distension (Acute) 09/22/20 CT Bronchospasm (Chronic 12/29/15) Pt unable to complete PFTs due to mental status, unclear ?asthma vs. COPD? Anemia (Chronic) Constipation (Chronic) Intellectual disability (Chronic) Also has legal guardian (see Guardianship on Problem List) Bipolar disorder (Chronic) [facility] Schizophrenia (Chronic) [facility] Seborrheic dermatitis of scalp (Chronic 10/17/17) Severe obstructive sleep apnea (Chronic 05/29/17) Uses CPAP - difficulty in using mask 12/23/23 - Considering Inspire device, pending testing Guardianship (Chronic 06/06/15) Legal Guardian: Yadira Boyle; Act 248: Registered sex offender, cannot be around children & needs 24 hr supervision (see [facility] Information Sheet -- scanned into chart 06/06/2015) Scalp cyst (Acute 03/28/17) IFG (impaired fasting glucose) (Chronic 03/28/17) Hypothyroidism (Acute) Hyperlipidemia (Chronic 06/20/15) 03/2022 labs: 10-year ASCVD risk = 3.4% Eczema of hand (Acute) Medical History SARS-CoV-2 positive (~12/22/21) Disorder of bursae and tendons in shoulder region Surgical History Colonoscopy - IV Sedation (03/13/10) Family History Father Alcohol abuse Arthritis Paternal Uncle Cancer Other Cancer of lung Social History Smoking/Tobacco Use Status: Former Tobacco Use Quit Date: 05/13/94 Smoking risk assessment performed?: Yes Alcohol Intake: never Drug use: Never Substance use type: does not use Adopted: No Caregiver/Support person: Yes (Human Services) Foster care: No Household members: other Details: Lives in [facility] detention Housing: assisted living facility Number of Children: 0 number of grandchildren: 0 Communication Needs: None Education Level: high school Do you need help understanding health information?: Often current occupation: Disabled Pets and animals: No Sexually active: No Do you think of yourself as: straight/heterosexual Current gender identity: male What is your relationship status?: never How often do you talk on the phone with friends or family?: never How often do you get together with friends or relatives?: never How often do you attend evangelical or rastafarian services?: decline to answer Do you belong to any clubs or organized social groups?: no Panel score (0-1 are the most socially isolated patients): 0 What type of physical activity do you participate in: walking Duration: < 15 minutes/day Frequency: 1-2 times per week Special hilda needs: No Seatbelt use: always Helmet use: Yes Drive intox or ride w/intox regional tanker truck driver: No Additional Social history: Unable to assess privately, with [facility] staff
[2024-04-06 11:06] LABS: Bilirubin Negative (Negative); Blood Negative (Negative); Clarity Clear (Clear); Glucose Negative (Negative); Ketones Negative (Negative); Leukocyte Esterase Small (Negative); Nitrite Negative (Negative); Urobilinogen 0.2 mg/dL (Up to 0.2)
[2024-04-06 11:14] LABS: Bacteria Rare HPF (Negative); C & S Indicated? Yes; Casts Negative LPF (Negative); Crystals Negative HPF (Negative); Epithelial Cells Negative HPF (Negative); Mucus Negative (Negative); Other Cells Negative (Negative); RBC Negative HPF (0-2); WBC 20-50 HPF (0-5)
--- NOTE | 2024-04-08 08:59 | NUR.NOTE ---
Accessed chart to look up whether or not on antibiotic for urine culture result. Nursing Note:
== END 2024-04-06 11:13 | disposition home or self-care (01) ==
PROVIDERS: Emergency Provider Student in an Organized Health Care Education/Training Program; PCP Family Medicine
DX: R30.0 Dysuria (principal); N39.0 Urinary tract infection, site not specified; Z87.891 Personal history of nicotine dependence
CPT/HCPCS: 87077; 99284; 81003; 81015; 87086; 87186

== ENCOUNTER 2024-04-15 10:38 | Outpatient (REF) | payer MEDICAID, SELFPAY ==
[2024-04-15 16:00] LABS: Bilirubin Negative (Negative); Blood Trace-intact (Negative); Clarity Cloudy (Clear); Glucose Negative (Negative); Ketones Negative (Negative); Leukocyte Esterase Large (Negative); Nitrite Negative (Negative); Urobilinogen 0.2 mg/dL (Up to 0.2)
[2024-04-15 16:42] LABS: C & S Indicated? C&S Done As Ordered; WBC >50 HPF (0-5)
== END 2024-04-15 10:39 | disposition home or self-care (01) ==
LOC: LBN 10:38
PROVIDERS: PCP Family Medicine; Visit Provider Nurse Practitioner Gerontology
DX: N32.89 Other specified disorders of bladder (principal); R30.0 Dysuria
CPT/HCPCS: 87077; 81003; 81015; 87086; 87186

== ENCOUNTER 2024-05-01 21:14 | Emergency (ER) | payer MEDICAID, SELFPAY ==
[2024-05-01] VITALS (10 sets, daily range): BP systolic 128–150; BP diastolic 81–88; PULSE 73–77; RESP 16; TEMP 36.4; O2SAT 92–96
--- NOTE | 2024-05-01 21:38 | ED.GENADUL_ITS ---
Discharge Plan Disposition Patient Disposition: Home Condition: Stable Discharge Details Clinical Impression: Swelling Primary Care Provider: Oli Silva ED Provider: Florecita Bains Home Meds and New Rx's Prescriptions: No Action zinc 15 mg tablet 15 mg PO DAILY lithium carbonate 150 mg capsule 150 mg PO DAILY Rx Instructions: at 8 am per med list dated 02/11/21 gc quetiapine 200 mg tablet 200 mg PO DAILY Rx Instructions: 400mg hs and 200 mg hs to total 600mg hs per med list 02/10/21 [facility] tamsulosin 0.4 mg capsule 0.4 mg PO DAILY Qty: 30 11RF urea 40 % cream 1 applic topical DAILY Qty: 28.35 3RF ketoconazole 2 % cream 1 applic topical DAILY Qty: 60 6RF Rx Instructions: Apply 3 grams to feet and nails Qam lidocaine HCl 2 % jelly in applicator 1 applic topical BID-QID PRN (Reason: pain) Qty: 250 0RF magnesium 250 mg tablet 500 mg PO DAILY linaclotide 145 mcg capsule 145 mcg PO DAILY Qty: 90 3RF magnesium citrate Solution 150 ml PO BID PRN (Reason: constipation) Qty: 296 0RF omega 6-pco-uei-fish oil [Fish Oil] 1,000 (120-180) mg capsule 1 cap PO DAILY Qty: 90 0RF senna 8.6 mg capsule 8.6 mg PO BID Qty: 60 12RF Multiple Vitamin-Minerals 1 EACH tablet 1 ea PO DAILY Qty: 90 (DME) Space Chamber Plus 1 EACH spacer 1 ea Miscellaneous PRN Qty: 1 Rx Instructions: To be used with inhaler. 5-hydroxytryptophan (5-HTP) [5-HTP] 100 mg capsule 100 mg PO QAM tiagabine [Gabitril] 4 mg tablet See Rx Instructions PO QHS Rx Instructions: 4 mg one (tab)8am, 4 mg 1(1 tab) 2pm and 8 mg (2 tabs) at hs [facility] list 02/11/21 [facility]gc quetiapine [Seroquel] 400 mg tablet 400 mg PO QHS Rx Instructions: 400mg hs and 200 mg hs to total 600mg hs per med list 02/10/21 cgc lithium carbonate 300 mg tablet See Rx Instructions PO TID Patient Comments: Rx Instructions: Take 300 mg 8AM, 300 mg 2PM, and 300 mg 8pm po TID; [facility] loxapine succinate 50 mg capsule See Rx Instructions PO as directed Rx Instructions: PO as directed; 1 tab 8AM, 1 tab 2PM and 2 tabs 8 pm vitamin B complex Capsule 1 cap PO DAILY Qty: 90 3RF Rx Instructions: Per Dr. Kelley ([facility]) melatonin 5 mg tablet 15 mg PO HS PRN (Reason: sleep) Qty: 90 3RF Rx Instructions: Per Dr. Kelley ([facility]) cholecalciferol (vitamin D3) 50 mcg (2,000 unit) capsule 2,000 unit PO DAILY Qty: 90 3RF Rx Instructions: 03/09/19-DR KELLEY [facility] SLEEP magnesium 250 mg tablet 250 mg PO TID PRN (Reason: anxiety or pain) Qty: 270 3RF Rx Instructions: Per Dr. Kelley ([facility] Sleep Medicine) levothyroxine 75 mcg tablet 75 mcg PO QAM Qty: 90 3RF albuterol sulfate [ProAir HFA] 90 mcg/actuation HFA aerosol inhaler 1 - 2 puff Inhalation Q4-6H PRN Qty: 1 3RF Rx Instructions: DISPENSE ALBUTEROL INHALER BRAND COVERED BY INSURANCE fluticasone propion-salmeterol [Advair HFA] 115-21 mcg/actuation HFA aerosol inhaler 2 puff Inhalation BID Qty: 3 3RF ketoconazole 2 % shampoo 1 applic Topical .1-2 times weekly Qty: 360 3RF Rx Instructions: Apply to affected area (scalp) once daily & let sit on skin for 5-10 minutes before washing off. omeprazole 20 mg capsule,delayed release(DR/EC) 20 mg PO QAM Qty: 90 3RF Rx Instructions: Take in the morning at least 30 minutes before first meal psyllium husk 0.52 gram capsule 1.04 g PO BID Qty: 360 3RF Rx Instructions: Take 2 pills twice daily with a full glass of water lorazepam 1 mg tablet 1.5 mg PO HS Patient Comments: took 0.5mg JEW[employer] DES[employer]ER glycerin (adult) [Fleet Glycerin (Adult)] Suppository 1 supp SC DAILY PRN (Reason: constipation) Qty: 12 0RF Rx Instructions: Take if no result from Mag citrate polyethylene glycol 3350 [Miralax] 17 gram/dose powder 8.5 g PO DAILY Qty: 850 3RF Rx Instructions: May give an extra dose daily prn simethicone 125 mg capsule 125 mg PO DAILY Qty: 30 0RF Discharge Instructions Instructions: Swelling, Low-sodium diet Additional Instructions: Increase oral fluids. Decrease your salt intake. At this time your labs are largely within normal limits. We discussed the increase in swelling with primary care provider. Follow up with primary care provider in 3-5 days. Return to ED sooner if any worsening or concerns. Referrals: Oli Silva NP [Primary Care Provider] - 3 days HPI General Mode of arrival: ambulatory . Date/Time Provider Initiated Documentation: 05/01/24 21:15 . Limitations to Documentation: no limitations and physical limitation . Information obtained by: patient, family (Care Givers GREG), RN notes reviewed and old records reviewed . HPI Narrative: 59-year-old male with a past medical history of bipolar schizophrenia, hypothyroidism, hyperlipidemia, urinary retention and bladder distention, intellectual disability presents with swelling to his feet lower extremities and hands which was noted by his caregivers today. He has had some recent changes in his medications. He also has been complaining of nausea and back pain on the ride over here per staff. Abdomen is soft and nontender with palpation. He has 1+ nonpitting edema noted to his lower extremities, Related Data Home Medications ?Medication ?Instructions ?Recorded ?Confirmed multivitamin with minerals 1 ea PO DAILY ##90 06/06/15 05/01/24 (Multiple Vitamin-Minerals tablet) inhalational spacing device (Space ##1 12/14/15 05/01/24 Chamber Plus) zinc 15 mg tablet 15 mg PO DAILY 05/02/18 05/01/24 5-hydroxytryptophan (5-HTP) 100 mg 100 mg PO QAM 01/01/20 05/01/24 capsule (5-HTP) lithium carbonate 150 mg capsule 150 mg PO DAILY 02/10/21 05/01/24 lithium carbonate 300 mg tablet See Rx Instructions PO TID 02/10/21 05/01/24 loxapine succinate 50 mg capsule See Rx Instructions PO as directed 02/10/21 05/01/24 quetiapine 200 mg tablet 200 mg PO DAILY 02/10/21 05/01/24 quetiapine 400 mg tablet (Seroquel) 400 mg PO QHS 02/10/21 05/01/24 tiagabine 4 mg tablet (Gabitril) See Rx Instructions PO QHS 02/10/21 05/01/24 melatonin 5 mg tablet 15 mg (3 x 5 mg) PO HS PRN sleep 05/24/22 05/01/24 #90 tabs vitamin B complex 1 cap PO DAILY #90 caps 05/24/22 05/01/24 cholecalciferol (vitamin D3) 50 2,000 unit PO DAILY #90 caps 05/30/22 05/01/24 mcg (2,000 unit) capsule magnesium 250 mg tablet 250 mg PO TID PRN anxiety or pain 06/04/23 05/01/24 #270 tabs levothyroxine 75 mcg tablet 75 mcg PO QAM #90 tab-caps 06/06/23 05/01/24 albuterol sulfate 90 mcg/actuation 1 - 2 puff inhalation Q4-6H PRN ##1 07/26/23 05/01/24 aerosol inhaler (ProAir HFA) fluticasone propionate 115 2 puff inhalation BID ##3 07/26/23 05/01/24 mcg-salmeterol 21 mcg/actuation HFA inhaler (Advair HFA) ketoconazole 2 % shampoo 1 applic topical .1-2 times weekly 09/10/23 05/01/24 #360 mL omeprazole 20 mg capsule,delayed 20 mg PO QAM #90 tab-caps 12/17/23 05/01/24 release psyllium husk 0.52 gram capsule 1.04 g (2 x 0.52 gram) PO BID #360 01/16/24 05/01/24 tab-caps lorazepam 1 mg tablet 1.5 mg PO HS 02/06/24 05/01/24 magnesium 250 mg tablet 500 mg PO DAILY 02/06/24 05/01/24 glycerin (adult) (Fleet Glycerin 1 supp SC DAILY PRN constipation 02/07/24 05/01/24 (Adult) rectal suppository) #12 ea polyethylene glycol 3350 17 8.5 g PO DAILY constipation #850 03/06/24 05/01/24 gram/dose oral powder (Miralax) grams lidocaine HCl 2 % mucosal jelly in 1 applic topical BID-QID PRN pain 03/09/24 05/01/24 applicator #250 mL linaclotide 145 mcg capsule 145 mcg PO DAILY #90 caps 03/24/24 05/01/24 magnesium citrate 150 ml PO BID PRN constipation 03/24/24 05/01/24 #296 mL omega 8-kev-tsr-fish oil 1,000 mg 1 cap PO DAILY #90 caps 03/24/24 05/01/24 (120 mg-180 mg) capsule (Fish Oil) sennosides 8.6 mg capsule (senna) 8.6 mg PO BID constipation #60 caps 03/26/24 05/01/24 tamsulosin 0.4 mg capsule 0.4 mg PO DAILY #30 caps 04/14/24 05/01/24 ketoconazole 2 % topical cream 1 applic topical DAILY #60 grams 04/15/24 05/01/24 urea 40 % topical cream 1 applic topical DAILY #28.35 grams 04/15/24 05/01/24 simethicone 125 mg capsule 125 mg PO DAILY #30 caps 04/27/24 05/01/24 Previous Rx's ?Medication ?Instructions ?Recorded melatonin 5 mg tablet 15 mg (3 x 5 mg) PO HS PRN sleep 05/24/22 #90 tabs vitamin B complex 1 cap PO DAILY #90 caps 05/24/22 cholecalciferol (vitamin D3) 50 2,000 unit PO DAILY #90 caps 05/30/22 mcg (2,000 unit) capsule magnesium 250 mg tablet 250 mg PO TID PRN anxiety or pain 06/04/23 #270 tabs levothyroxine 75 mcg tablet 75 mcg PO QAM #90 tab-caps 06/06/23 albuterol sulfate 90 mcg/actuation 1 - 2 puff inhalation Q4-6H PRN ##1 07/26/23 aerosol inhaler (ProAir HFA) fluticasone propionate 115 2 puff inhalation BID ##3 07/26/23 mcg-salmeterol 21 mcg/actuation HFA inhaler (Advair HFA) ketoconazole 2 % shampoo 1 applic topical .1-2 times weekly 09/10/23 #360 mL omeprazole 20 mg capsule,delayed 20 mg PO QAM #90 tab-caps 12/17/23 release psyllium husk 0.52 gram capsule 1.04 g (2 x 0.52 gram) PO BID #360 01/16/24 tab-caps glycerin (adult) (Fleet Glycerin 1 supp SC DAILY PRN constipation 02/07/24 (Adult) rectal suppository) #12 ea polyethylene glycol 3350 17 8.5 g PO DAILY constipation #850 03/06/24 gram/dose oral powder (Miralax) grams lidocaine HCl 2 % mucosal jelly in 1 applic topical BID-QID PRN pain 03/09/24 applicator #250 mL linaclotide 145 mcg capsule 145 mcg PO DAILY #90 caps 03/24/24 magnesium citrate 150 ml PO BID PRN constipation 03/24/24 #296 mL omega 8-wzl-xge-fish oil 1,000 mg 1 cap PO DAILY #90 caps 03/24/24 (120 mg-180 mg) capsule (Fish Oil) sennosides 8.6 mg capsule (senna) 8.6 mg PO BID constipation #60 caps 03/26/24 tamsulosin 0.4 mg capsule 0.4 mg PO DAILY #30 caps 04/14/24 ketoconazole 2 % topical cream 1 applic topical DAILY #60 grams 04/15/24 urea 40 % topical cream 1 applic topical DAILY #28.35 grams 04/15/24 simethicone 125 mg capsule 125 mg PO DAILY #30 caps 04/27/24 Allergies Allergy/AdvReac Type Severity Reaction Status Date / Time acetaminophen (From Tylenol) Allergy Unknown unknown Verified 05/01/24 21:31 chlorpromazine HCl (From Allergy Unknown unknown Verified 05/01/24 21:31 Thorazine) clozapine (From Clozaril) Allergy Unknown unknown Verified 05/01/24 21:31 haloperidol (From Haldol) Allergy Unknown unknown Verified 05/01/24 21:31 haloperidol lactate (From Allergy Unknown unknown Verified 05/01/24 21:31 Haldol) risperidone (From Risperdal) Allergy Unknown unknown Verified 05/01/24 21:31 General Stated Complaint: Dizzy/Sync TEDDY: 3 Review of Systems Cardiovascular Cardiovascular: Reports leg edema Gastrointestinal Gastrointestinal: Reports nausea and Denies vomiting Exam Narrative Exam Narrative: Constitutional: Alert and at baseline Appears stated age. Normal body habitus. Head: Normocephalic, no trauma. Eyes: Pupils PERRL, Red reflex noted, EOM's intact. Eyelids symmetrical without lesions, discharge, or swelling. ENT: Bilateral TM's WNL, External ear normal to inspection, no mastoid TTP, swelling, or erythema, Nasal turbinates WNL, no nasal discharge. Normal dentition, Posterior pharynx WNL, no exudate. Chest: RRR, Normal S1, S2, distal pulses intact. Resp: Lungs clear to auscultation bilaterally, no wheezes, rales, or rhonchi. Abdomen: Soft, non-distended, Normoactive bowel sounds all 4 quads. Musculoskeletal: Normal gait, Moves all 4 extremities without difficulty. Skin: No suspicious rashes or lesions. Capillary refill less than 2 sec. Neurologic: Cranial nerves II-XII intact. Alert and oriented and at baseline. M otor: No deficits noted. Sensory: Intact bilaterally all 4 extremities. Hematologic/Lymphatic: No ecchymosis, no lymphadenopathy. Course Vital Signs Vital signs: Vital Signs Temperature 36.4 C 05/01/24 21:19 Pulse 77 05/01/24 21:19 Respiratory Rate 16 05/01/24 21:19 Blood Pressure 150/81 H 05/01/24 21:19 Pulse Oximetry 95 05/01/24 21:19 Temperature 36.4 C 05/01/24 21:19 Pulse 77 05/01/24 21:19 Respiratory Rate 16 05/01/24 21:26 Respiratory Effort Normal, Non-Labored 05/01/24 21:26 Respiratory Depth Normal 05/01/24 21:26 Respiratory Pattern Normal 05/01/24 21:26 Blood Pressure 150/81 H 05/01/24 21:19 Blood Pressure Position Sitting 05/01/24 21:19 Pulse Oximetry 95 05/01/24 21:19 Oxygen Delivery Method Room Air 05/01/24 21:19 Oxygen Flow Rate 0 05/01/24 21:19 Pain Level 0 05/01/24 21:19 Medical Decision Making 59-year-old male with a past medical history of bipolar schizophrenia, hypothyroidism, hyperlipidemia, urinary retention and bladder distention, intellectual disability presents with swelling to his feet lower extremities and hands which was noted by his caregivers today. He has had some recent changes in his medications. He also has been complaining of nausea and back pain on the ride over here per staff. Abdomen is soft and nontender with palpation. He has 1+ nonpitting edema noted to his lower extremities, CBC CMP lithium level ordered plus proBNP for swelling. Labs are within normal limits. Discharged with follow-up with PCP. Lab Data Lab results reviewed: Yes I reviewed the patient's lab results. Labs: Laboratory Tests Range/Units 05/01/24 21:50 WBC (4.4-10.8) 10^3/uL 7.73 RBC (4.36-5.78) 10^6/uL 3.92 L Hgb (13.5-17.5) g/dL 11.9 L Hct (40.0-50.0) % 36.1 L MCV (80-95) fL 92 MCH (27.0-33.0) pg 30.4 MCHC (32.0-36.0) % 33.0 RDW (11.8-14.1) % 13.4 Plt Count (130-400) 10^3/uL 298 MPV (8.0-11.0) fL 8.8 Immature Gran % % 0.6 Neutrophils % % 63.3 Lymphocytes % % 21.5 Monocytes % % 11.9 Eosinophils % % 2.1 Basophils % % 0.6 Nucleated RBC % (0.0-0.3) % 0.0 Absolute Neutrophils (1.2-6.7) 10^3/uL 4.89 Absolute Lymphocytes (1.2-3.4) 10^3/uL 1.66 Absolute Monocytes (0.1-0.8) 10^3/uL 0.92 H Absolute Eosinophils (0.0-0.7) 10^3/uL 0.16 Absolute Basophils (0.0-0.2) 10^3/uL 0.05 Sodium (136-145) mmol/L 138 Potassium (3.5-5.1) mmol/L 3.9 Chloride (98-107) mmol/L 103 Carbon Dioxide (21.0-32.0) mmol/L 28.0 Anion Gap (3-11) mmol/L 7.0 BUN (7-18) mg/dL 18 Creatinine (0.70-1.30) mg/dL 1.2 Est GFR (CKD-EPI 2020) (mL/min/1.73m2) 70.53 Glucose (74-106) mg/dL 102 Calcium (8.5-10.1) mg/dL 9.9 Magnesium (1.8-2.4) mg/dL 2.3 Total Bilirubin (0.2-1.0) mg/dL 0.21 AST (15-37) U/L 12 L ALT (16-63) U/L 18 Alkaline Phosphatase (46-116) U/L 115 NT-Pro-B Natriuret Pep (<300) pg/mL 13 Total Protein (6.4-8.2) g/dL 7.2 Albumin (3.4-5.0) g/dL 3.5 [place] (0.6-1.2) mmol/L 1.0 Quality:[facility] Health Related Social Needs: No Data to Display PFSH All Active Problems (Updated 05/01/24 @ 22:28 by Florecita Bains NP) Swelling (Acute) Dysuria (Acute) Rectus diastasis (Acute) Excessive gas (Acute) Periodic limb movement disorder (PLMD) (Acute) Dr Rocky Kelley - 01/16/2024 - Consider lab evaluation and pharmacologic Tx Eczema (Acute) Fissures in skin of both feet (Acute) Hyperkeratosis (Acute) Tinea pedis (Acute) Nail dystrophy (Acute) Obesity (Chronic) Bladder distension (Acute) 09/22/20 CT Bronchospasm (Chronic 12/29/15) Pt unable to complete PFTs due to mental status, unclear ?asthma vs. COPD? Anemia (Chronic) Constipation (Chronic) Intellectual disability (Chronic) Also has legal guardian (see Guardianship on Problem List) Bipolar disorder (Chronic) [facility] Psychiatry Schizophrenia (Chronic) [facility] Psychiatry Seborrheic dermatitis of scalp (Chronic 10/17/17) Severe obstructive sleep apnea (Chronic 05/29/17) Uses CPAP - difficulty in using mask 12/23/23 - Considering Inspire device, pending testing Guardianship (Chronic 06/06/15) Legal Guardian: Yadirarenny Boyle; Act 248: Registered sex offender, cannot be around children & needs 24 hr supervision (see [facility] Information Sheet -- scanned into chart 06/06/2015) Scalp cyst (Acute 03/28/17) IFG (impaired fasting glucose) (Chronic 03/28/17) Hypothyroidism (Acute) Hyperlipidemia (Chronic 06/20/15) 03/2022 labs: 10-year ASCVD risk = 3.4% Eczema of hand (Acute) Medical History SARS-CoV-2 positive (~12/22/21) Disorder of bursae and tendons in shoulder region Surgical History Colonoscopy - IV Sedation (03/13/10) Family History Father Alcohol abuse Arthritis Paternal Uncle Cancer Other Cancer of lung Social History Smoking/Tobacco Use Status: Former Tobacco Use Quit Date: 05/13/94 Smoking risk assessment performed?: Yes Alcohol Intake: never Drug use: Never Substance use type: does not use Adopted: No Caregiver/Support person: Yes (Human Services) Foster care: No Household members: other Details: Lives in [facility] long-term Housing: assisted living facility Number of Children: 0 number of grandchildren: 0 Communication Needs: None Education Level: high school Do you need help understanding health information?: Often current occupation: Disabled Pets and animals: No Sexually active: No Do you think of yourself as: straight/heterosexual Current gender identity: male What is your relationship status?: never How often do you talk on the phone with friends or family?: never How often do you get together with friends or relatives?: never How often do you attend congregational or buddhism services?: decline to answer Do you belong to any clubs or organized social groups?: no Panel score (0-1 are the most socially isolated patients): 0 What type of physical activity do you participate in: walking Duration: < 15 minutes/day Frequency: 1-2 times per week Special hilda needs: No Seatbelt use: always Helmet use: Yes Drive intox or ride w/intox 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
[2024-05-01 21:59] LABS: Abs Immature Grans 0.05 10^3/uL (0.0-0.06); Absolute Basophil Count 0.05 10^3/uL (0.0-0.2); Absolute Eosinophil Count 0.16 10^3/uL (0.0-0.7); Absolute Lymphocyte Count 1.66 10^3/uL (1.2-3.4); Absolute Monocyte Count 0.92 10^3/uL (0.1-0.8); Absolute Neutrophil Count 4.89 10^3/uL (1.2-6.7); Basophils % 0.6 %; Eosinophils % 2.1 %; HCT 36.1 % (40.0-50.0); HGB 11.9 g/dL (13.5-17.5); Immature Grans % 0.6 %; Lymphocytes % 21.5 %; MCH 30.4 pg (27.0-33.0); MCV 92 fL (80-95); MPV 8.8 fL (8.0-11.0); Monocytes % 11.9 %; Neutrophils % 63.3 %; Platelet Count 298 10^3/uL (130-400); RBC 3.92 10^6/uL (4.36-5.78); RDW 13.4 % (11.8-14.1); RDW-SD 45.6 fL; WBC 7.73 10^3/uL (4.4-10.8)
[2024-05-01 22:22] LABS: ALT 18 U/L (16-63); AST 12 U/L (15-37); Albumin 3.5 g/dL (3.4-5.0); Alkaline Phosphatase 115 U/L (46-116); BUN 18 mg/dL (7-18); Bilirubin, Total 0.21 mg/dL (0.2-1.0); CREATININE 1.2 mg/dL (0.70-1.30); Calcium 9.9 mg/dL (8.5-10.1); Chloride 103 mmol/L (98-107); Estimated GFR 70.53 (mL/min/1.73m2); Glucose 102 mg/dL (74-106); Magnesium 2.3 mg/dL (1.8-2.4); Potassium 3.9 mmol/L (3.5-5.1); Sodium 138 mmol/L (136-145); Total Protein 7.2 g/dL (6.4-8.2)
[2024-05-01 22:24] LABS: NT-proBNP 13 pg/mL (<300)
== END 2024-05-01 22:46 | disposition home or self-care (01) ==
PROVIDERS: Emergency Provider Registered Nurse Emergency; PCP Nurse Practitioner Family
DX: R60.9 Edema, unspecified (principal); R10.9 Unspecified abdominal pain; M79.89 Other specified soft tissue disorders; E03.9 Hypothyroidism, unspecified; E78.5 Hyperlipidemia, unspecified; F31.9 Bipolar disorder, unspecified; F20.9 Schizophrenia, unspecified; F79 Unspecified intellectual disabilities; Z79.899 Other long term (current) drug therapy
CPT/HCPCS: 36415; 80053; 99283; 80178; 83735; 83880; 85025; 99284

== ENCOUNTER 2024-08-25 01:55 | Outpatient (CLI) | payer MEDICAID, SELFPAY ==
--- NOTE | 2024-08-25 07:15 | DI.RAD_ITS ---
Exam(s) XR CHEST 2V PA LATERAL EXAM: XR CHEST 2V PA LATERAL CLINICAL HISTORY: cough and chest tightness,R05.9 TECHNIQUE: 2D digital imaging was performed. Two views. COMPARISON: No exams were available for comparison FINDINGS: HEART: Normal size. Aorta: Not dilated. PULMONARY VASCULATURE: Normal. MEDIASTINUM: Unremarkable. LUNGS: Clear. PLEURAL SPACE: No pleural effusion or pneumothorax. BONE:Unremarkable for age. SOFT TISSUES: Unremarkable. IMPRESSION: No acute abnormality. DATA REPOSITORY: RADIATION DOSE DELIVERED:
== END 2024-08-25 02:15 ==
LOC: DI 01:55
PROVIDERS: PCP Nurse Practitioner Family; Visit Provider Nurse Practitioner Family
DX: R05.9 Cough, unspecified (principal)
CPT/HCPCS: 71046

== ENCOUNTER 2024-08-25 17:32 | Outpatient (REF) | payer MEDICAID, SELFPAY ==
[2024-08-25 21:29] LABS: Abs Immature Grans 0.15 10^3/uL (0.0-0.06); Absolute Basophil Count 0.04 10^3/uL (0.0-0.2); Absolute Eosinophil Count 0.15 10^3/uL (0.0-0.7); Absolute Lymphocyte Count 1.74 10^3/uL (1.2-3.4); Absolute Monocyte Count 0.86 10^3/uL (0.1-0.8); Absolute Neutrophil Count 5.88 10^3/uL (1.2-6.7); Basophils % 0.5 %; Eosinophils % 1.7 %; HCT 39.2 % (40.0-50.0); Immature Grans % 1.7 %; Lymphocytes % 19.7 %; MCH 30.2 pg (27.0-33.0); MCHC 33.2 % (32.0-36.0); MCV 91 fL (80-95); MPV 9.2 fL (8.0-11.0); Monocytes % 9.8 %; Neutrophils % 66.6 %; Platelet Count 375 10^3/uL (130-400); RDW 13.2 % (11.8-14.1); RDW-SD 44.4 fL; WBC 8.82 10^3/uL (4.4-10.8)
[2024-08-25 21:35] LABS: Bilirubin Negative (Negative); Blood Negative (Negative); Clarity Clear (Clear); Glucose Negative (Negative); Ketones Negative (Negative); Leukocyte Esterase Small (Negative); Nitrite Negative (Negative); Urobilinogen 0.2 mg/dL (Up to 0.2); pH 6.5 (5-8)
[2024-08-25 21:51] LABS: ALT 33 U/L (16-63); AST 21 U/L (15-37); Albumin 3.8 g/dL (3.4-5.0); Alkaline Phosphatase 115 U/L (46-116); Anion Gap 5.5 mmol/L (3-11); BUN 15 mg/dL (7-18); Bilirubin, Total 0.3 mg/dL (0.2-1.0); CO2 28.5 mmol/L (21.0-32.0); CREATININE 1.1 mg/dL (0.70-1.30); Calcium 10.3 mg/dL (8.5-10.1); Chloride 106 mmol/L (98-107); Glucose 125 mg/dL (74-106); NT-proBNP 19 pg/mL (<300); Potassium 4.4 mmol/L (3.5-5.1); Sodium 140 mmol/L (136-145); Total Protein 6.8 g/dL (6.4-8.2)
[2024-08-25 21:57] LABS: Bacteria Moderate HPF (Negative); C & S Indicated? Yes; Casts Negative LPF (Negative); Crystals Negative HPF (Negative); Epithelial Cells Rare HPF (Negative); Mucus Negative (Negative); RBC 0-2 HPF (0-2)
== END 2024-08-25 17:33 | disposition home or self-care (01) ==
LOC: LBN 17:32
PROVIDERS: PCP Nurse Practitioner Family; Visit Provider Physician Assistant
DX: R14.0 Abdominal distension (gaseous) (principal); R60.9 Edema, unspecified
CPT/HCPCS: 80053; 87077; 81003; 81015; 83880; 85025; 87086; 87186

== ENCOUNTER 2024-08-25 17:38 | Outpatient (CLI) | payer MEDICAID, SELFPAY ==
--- NOTE | 2024-08-25 16:15 | DI.RAD_ITS ---
Exam(s) XR ABDOMEN FLAT UPRIGHT EXAM: XR ABDOMEN FLAT UPRIGHT CLINICAL HISTORY: abdominal distention R14.0. TECHNIQUE: 2D digital imaging was performed. COMPARISON: CR XR ABDOMEN FLAT UPRIGHT from 02/06/2024 FINDINGS: Supine and upright views of the abdomen-pelvis reveal no free intraperitoneal air. There is air seen throughout multiple small bowel loops as well as some air seen in the colon and gastric fundus. The re is abundant fecal material noted in the left side of the colon. There does not appear to be fecal rectal expansion. No obvious masses nor bowel displacement There is chronic advanced disc space narrowing at L4-5 level noted. Regional bones otherwise appear unremarkable. IMPRESSION: Air-filled mildly dilated small bowel loops. There is abundant fecal material in the left side of th e colon. No free air evident. If clinically indicated follow-up CT scan can be performed. DATA REPOSITORY: RADIATION DOSE DELIVERED:
--- NOTE | 2024-08-25 17:37 | DI.VRAD_ITS ---
PROCEDURE INFORMATION: Exam: XR Abdomen Exam date and time: 08/25/2024 4:48 PM Age: 59 years old Clinical indication: Other: Abdominal distention TECHNIQUE: Imaging protocol: Radiologic exam of the abdomen. Views: 2 Views. Upright and supine views. Total images: 5 COMPARISON: CT ABDOMEN PELVIS W 03/03/2024 8:13 PM FINDINGS: Gastrointestinal tract: No bowel dilatation. Intraperitoneal space: No free air. Bones/joints: Unremarkable. Soft tissues: No mass effect or definite opaque calculi. IMPRESSION: No acute findings. Dictated and Authenticated by: Faustino Issa MD. Orderin Veronica Calvo MD
== END 2024-08-25 17:58 ==
LOC: DI 17:38
PROVIDERS: PCP Nurse Practitioner Family; Visit Provider Student in an Organized Health Care Education/Training Program
DX: R14.0 Abdominal distension (gaseous) (principal); M51.26 Other intervertebral disc displacement, lumbar region
CPT/HCPCS: 74019

== ENCOUNTER 2024-09-23 02:07 | Outpatient (CLI) | payer MEDICAID, SELFPAY ==
--- NOTE | 2024-09-23 12:30 | DI.US_ITS ---
APPROVED REPORT EXAM: Comprehensive 2D, Doppler, and color-flow Echocardiogram Patient Location: Out-Patient Residential Direct Support Professional: Doroteo Garcia RDCS (AE) Indications: Murmur Other Information Study Quality: Adequate Conclusion Normal left ventricular wall thickness and chamber size. Ejection fraction is 65%. Wall motion is n ormal Normal right ventricular size and function Both atria are normal in size There are no structural valvular abnormalities Estimated right ventricular systolic pressure is 39 mmHg Wall motion Left Ventricle The left ventricle is normal size. Left ventricular systolic function is normal. The left ventricular ejection fraction is within the normal range. There is normal left ventricular wall thickness. There is normal LV segmental wall motion. There is no ventricular septal defect visualized. LVEF is 65%. Right Ventricle The right ventricle is normal size. The right ventricular systolic function is normal. Atria The left atrium size is normal. The right atrium size is normal. The interatrial septum is intact wit h no evidence for an atrial septal defect. Aortic Valve The aortic valve is normal in structure. Aortic valve is trileaflet. There is no aortic valvular sten osis. No aortic regurgitation is present. Mitral Valve The mitral valve is normal in structure. No evidence of mitral valve stenosis. There is no mitral chauncey ve regurgitation noted. Tricuspid Valve The tricuspid valve is normal in structure. There is no tricuspid valve stenosis. Mild tricuspid regu rgitation. The RVSP is 39.3 mmHg. Pulmonic Valve The pulmonary valve is normal in structure. There is no pulmonic valvular stenosis. Trivial pulmonic regurgitation. Great Vessels The aortic root is normal in size. The ascending aorta is normal in size. Aortic arch is not well vis ualized. IVC is normal in size and collapses >50% with inspiration. Pericardium There is no pericardial effusion. 2D Dimensions IVSD d PLAX 0.97 cm M: 0.6-1.2 Ao Root d 3.26 cm M: 3.1 - 3.7 LVPW d PLAX 0.96 cm M: 0.6 - 1.2 Ao Asc Diam d 3.32 cm M: 2.6 - 3.4 LVID d PLAX 4.92 cm M: 4.2 - 5.8 LVDs 3.19 cm M: 2.5 - 4.0 LV EF Teichholz 64.3 % FS 35.18 % LV EDV (Teich) 113.8 mL LV ESV (Teich) 40.6 mL Stroke Vol Index (Teich) 37.74 M-Mode TAPSE 1.77 cm (M/F) >1.7 LV Volumes - Method of Disks (Marin's) Single Plane 2D LV Volumes Biplane 2D LV Volumes LV EDV A4C 73.7 mL LV EDV BP 76.48 mL M: 62 - 150 LV ESV A4C 23.9 mL LV ESV BP 25.5 mL LVEF(%) A4C 67.6 % LVEF(%) BP 66.63 % M: 52 - 72 LV EDV A2C 78.9 mL LV EDV BP Index 39.42 mL/m2 M: 34 - 74 LV ESV A2C 27.3 mL SV BP LVEF(%) A2C 65.5 % SV Index LA Volume LA Length A4C 4.0 cm LA Length A2C 4.2 cm LA Area A4C s 8.32 cm2 LA Area A2C s 12.90 cm2 LA Vol A4C A-L 14.74 mL LA Vol A2C A-L 33.46 mL LA Vol Biplane A-L 22.8 mL LA Vol/BSA A4C A-L LA Vol/BSA A2C A-L LA Vol/BSA BP A-L 11.8 mL/m2 LA Vol A4C MOD 14.0 mL LA Vol A2C MOD 32.2 mL LA Vol BP MOD 21.6 mL RA Volume RA Area A4C 7.3 cm2 RA ESV A4C (A-L) 12.2mL RA Vol/BSA A4C A-L RA Length A4C 3.7 cm RA ESV A4C (MOD) 12.2mL LV Diastology MV E' medial 0.094 (>0.07 m/s) MV E Vmax 0.66 (0.4-1.3 m/s) MV E/E' MED 7.09 (<14) MV A Vmax 0.75 (0.4-1.3 m/s) MV E' lateral 0.090 (>0.1 m/s) E/A Ratio 0.9 MV E/E' LAT 7.41 (<14) MV E' Average 0.092 m/s MV E/E'(average) 7.25 Aortic Valve AoV Vmax 1.46 m/s LVOT Vmax 1.26 m/s AoV Peak Grad 8.6 mmHg LVOT Peak Grad 6.3 mmHg AoV Area (Vmax) 2.15 cm2 LVOT VTI 0.231 m AoV VTI 0.270 m LVOT Mean Grad 3.2 mmHg AoV Mean Frank. 1.00 m/s LVOT SV 58.01 mL AoV Mean Grad 4.6 mmHg LVOT Diam s 1.75 cm AoV Area (VTI) 2.15 cm2 AV Regurg Peak Gr. 8.56 mmHg Velocity Ratio 0.86 Mitral Valve MV DT 111 (160-240 msec) Pulmonary Valve PV Vmax 0.99 (0.5-1.5 m/s) RVOT Vmax 0.71 m/s PV Peak Grad 3.9 mmHg RVOT Peak Gr. 2.0 mmHg PV Mean Frank 0.68 m/s RVOT VTI 0.144 m PV Mean Grad 2.1 mmHg RVOT Mean Gr. 1.0 mmHg Tricuspid Valve RA Pressure 3.00 mmHg TR Vmax 3.01 m/s TV S' 0.16 m/s TR Peak Grad 36.3 mmHg RVSP (TR) 39.3 mmHg
== END 2024-09-23 02:27 ==
LOC: DI 02:07
PROVIDERS: PCP Nurse Practitioner Family; Visit Provider Internal Medicine Cardiovascular Disease
DX: R01.1 Cardiac murmur, unspecified (principal)
CPT/HCPCS: 93306

== ENCOUNTER 2024-09-28 04:01 | Outpatient (CLI) | payer MEDICAID, SELFPAY ==
[2024-09-28 14:28] LABS: TSH (W/Ref FT4) 1.34 uIU/mL (0.36-3.74)
== END 2024-09-28 04:02 | disposition home or self-care (01) ==
PROVIDERS: Physician Assistant; PCP Nurse Practitioner Family; Visit Provider Nurse Practitioner Family
DX: R14.0 Abdominal distension (gaseous) (principal); E03.9 Hypothyroidism, unspecified
CPT/HCPCS: 36415; 80178; 84443

== ENCOUNTER 2024-10-06 01:43 | Outpatient (CLI) | payer MEDICAID, SELFPAY ==
--- NOTE | 2024-10-06 06:30 | DI.US_ITS ---
Exam(s) US RENAL EXAM: US RENAL CLINICAL HISTORY: Monitoring hydro,BLADDER DISTENSION,N32.89 TECHNIQUE: Ultrasound of both kidneys performed using standard protocol. COMPARISON: CT CT ABDOMEN PELVIS W from 03/03/2024 FINDINGS: RIGHT KIDNEY: Measures 12 cm in length. There is a benign cyst in the superior pole of the right kidney measuring 1 .9 x 1.7 cm. Does not require further workup. Normal cortical thickness but somewhat decreased luz icomedullary differentiation. No solid masses. No intrarenal calculi nor hydronephrosis. LEFT KIDNEY: Measures 13 cm in length. No cysts evident. Normal cortical thickness but somewhat decreased cortico medullary differentiation, similar to the opposite side. No solid masses. No calculi. No hydroneph rosis. URINARY BLADDER: Urinary bladder is mildly distended Prevoid volume is 884 cc Postvoid volume is high, measuring 512 cc No evidence of bladder mass nor diverticuli. Ureterovesical jets: Both identified PROSTATE GLAND: Not significantly enlarged IMPRESSION: 1. Urinary bladder is somewhat distended and there is a large postvoid residual volume of 512 cc. T he prostate gland does not appear significantly enlarged. 2. No hydronephrosis. However, there is somewhat decreased corticomedullary differentiation both ki dneys. Suspect medical renal disease. 3. Small benign cyst in the superior pole the right kidney. There are no solid renal masses. DATA REPOSITORY:
== END 2024-10-06 02:03 ==
LOC: DI 01:43
PROVIDERS: PCP Nurse Practitioner Family; Visit Provider Nurse Practitioner Gerontology
DX: N32.89 Other specified disorders of bladder (principal)
CPT/HCPCS: 76770

== ENCOUNTER 2024-10-23 11:22 | Outpatient (REF) | payer MEDICAID, SELFPAY | END 2024-10-23 11:23 | disposition home or self-care (01) | LOC: LBN 11:22 | PROVIDERS: PCP Nurse Practitioner Family; Visit Provider Physician Assistant | DX: H10.9 Unspecified conjunctivitis (principal) | CPT/HCPCS: 87070; 87205 ==

== ENCOUNTER 2025-01-05 03:01 | Outpatient (CLI) | payer MEDICAID, SELFPAY ==
[2025-01-05 11:21] LABS: HGB 13.6 g/dL (13.5-17.5)
[2025-01-05 12:03] LABS: Calculated LDL 150 mg/dL (<100); Cholesterol 260 mg/dL (<200); HDL Cholesterol 59 mg/dL (>or=40); TSH 1.61 uIU/mL (0.36-3.74); Triglyceride 259 mg/dL (<150)
[2025-01-05 12:09] LABS: Lithium 1.2 mmol/L (0.6-1.2)
[2025-01-06 20:56] LABS: Cystatin C, S 1.07 mg/L
== END 2025-01-05 03:02 | disposition home or self-care (01) ==
LOC: LBO 03:02
PROVIDERS: PCP Nurse Practitioner Family; Visit Provider Psychiatry & Neurology Psychiatry
DX: F25.0 Schizoaffective disorder, bipolar type (principal); F20.9 Schizophrenia, unspecified; Z79.899 Other long term (current) drug therapy
CPT/HCPCS: 36415; 80061; 82610; 80178; 83036; 84443; 85018

== ENCOUNTER 2025-01-29 02:21 | Outpatient (CLI) | payer MEDICAID, SELFPAY ==
--- NOTE | 2025-01-29 06:00 | DI.RAD_ITS ---
Exam(s) XR LUMBAR SPINE COMPLETE EXAM: XR LUMBAR SPINE COMPLETE CLINICAL HISTORY: low back pain with radiation into both legs.m54.50. TECHNIQUE: 2D digital imaging was performed of the lumbar spine. Five images were obtained. AP, lateral, right oblique, left oblique and L5-S1 spot views were obtained. COMPARISON: CR,XR XR ABDOMEN FLAT UPRIGHT from 08/25/2024 FINDINGS: BONES: No fracture or destructive lesion. Vertebral bodies are unremarkable. DISKS: There is marked disc space narrowing at L4-L5. ALIGNMENT: There is grade 1 anterolisthesis of L4 on L5. There are degenerative changes of the facets at L4-L5. No spondylolysis or spondylolisthesis. SOFT TISSUE: Normal. IMPRESSION: Marked degenerative changes seen at the L4-5 level with grade 1 anterolisthesis, disc space narrowing and facet arthropathy. DATA REPOSITORY: RADIATION DOSE DELIVERED:
== END 2025-01-29 02:41 ==
LOC: DI 02:21
PROVIDERS: PCP Nurse Practitioner Family; Visit Provider Nurse Practitioner Family
DX: M51.362 Other intervertebral disc degeneration, lumbar region with discogenic back pain and lower extremity pain (principal)
CPT/HCPCS: 72110

== ENCOUNTER 2025-02-17 03:38 | Outpatient (CLI) | payer MEDICAID, SELFPAY ==
[2025-02-17 14:28] LABS: Lithium 0.9 mmol/L (0.6-1.2)
[2025-02-17 14:34] LABS: Hemoglobin A1C 5.6 % (<5.7)
[2025-02-17 14:50] LABS: ALT 29 U/L (16-63); AST 13 U/L (15-37); Albumin 3.8 g/dL (3.4-5.0); Alkaline Phosphatase 121 U/L (46-116); Anion Gap 11.5 mmol/L (3-11); BUN 22 mg/dL (7-18); Bilirubin, Total 0.3 mg/dL (0.2-1.0); CO2 23.5 mmol/L (21.0-32.0); Calcium 10.2 mg/dL (8.5-10.1); Calculated LDL 142 mg/dL (<100); Chloride 105 mmol/L (98-107); Cholesterol 238 mg/dL (<200); Estimated GFR 70.53 (mL/min/1.73m2); Glucose 133 mg/dL (74-106); HDL Cholesterol 57 mg/dL (>or=40); Potassium 3.8 mmol/L (3.5-5.1); Sodium 140 mmol/L (136-145); T4 6.7 ug/dL (4.7-13.3); TSH 1.80 uIU/mL (0.36-3.74); Total Protein 7.4 g/dL (6.4-8.2); Triglyceride 196 mg/dL (<150); Vitamin B12 404 pg/mL (193-986)
[2025-02-17 23:19] LABS: T3, Total 71 ng/dL (82-158)
[2025-02-18 11:27] LABS: Syphilis Serology (RPR) Negative (Negative)
== END 2025-02-17 03:39 | disposition home or self-care (01) ==
LOC: LOS 03:38
PROVIDERS: PCP Nurse Practitioner Family; Visit Provider Psychiatry & Neurology Psychiatry
DX: Z79.899 Other long term (current) drug therapy (principal)
CPT/HCPCS: 36415; 80053; 80061; 80178; 82607; 83036; 84436; 84439; 84443; 84480; 86592

== ENCOUNTER 2025-04-14 01:32 | Outpatient (CLI) | payer MEDICAID, SELFPAY ==
[2025-04-14 11:06] LABS: BUN 13 mg/dL (9-23)
== END 2025-04-14 01:33 | disposition home or self-care (01) ==
LOC: LBO 01:32
PROVIDERS: PCP Nurse Practitioner Family; Visit Provider Nurse Practitioner Gerontology
DX: N32.89 Other specified disorders of bladder (principal)
CPT/HCPCS: 36415; 84520; 82565